=== PATIENT | male | born 1970 | race Two or more races ===

== ENCOUNTER 2016-11-22 15:42 | Inpatient (IN) | payer OTHER ==
[2016-11-22 17:35] VITALS: BMI 23.7
--- NOTE | 2016-11-22 22:13 | HP ---
CIWA Score - CIWA Score Nausea/Vomitin-No Nausea/No Vomiting Muscle Tremors: 4-Moderate,w/Arms Extend Anxiety: 4-Mod. Anxious/Guarded Agitation: 4-Moderately Restless Paroxysmal Sweats: 1-Minimal Palms Moist Orientation: 2-Disoriented Date<2 days Tacttile Disturbances: 1-Very Mild Itch/Numbness Auditory Disturbances: 0-None Visual Disturbances: 0-None Headache: 1-Very Mild CIWA-Ar Total Score: 17 Admission ROS BHS - HPI Chief Complaint: SEEKING DETOX TXMENT Allergies/Adverse Reactions: Allergies Allergy/AdvReac Type Severity Reaction Status Date / Time Fish Containing Products Allergy Severe Swelling Verified 01/04/16 14:09 No Known Drug Allergies Allergy Verified 01/04/16 14:09 History of Present Illness: 46 Y.O MALE ADMITTED FOR DETOX FROM ALCOHOLISM. CLIENT IS KNOWN TO [facility]. REPORTS LAST DETOX 11 MONTHS AGO. STATES HE IS ON MMTP AT [place] 65 MG DAILY LDM TODAY. Exam Limitations: No Limitations - Ebola screening Have you traveled outside of the country in the last 21 days: No Have you had contact with anyone from an Ebola affected area: No Have you been sick,other than usual withdrawal symptoms: No Do you have a fever: No - Review of Systems Constitutional: Chills, Loss of Appetite, Night Sweats, Changes in sleep EENT: reports: Dental Problems (MISSING TEETH), Other (GLASSES) Respiratory: reports: No Symptoms reported Cardiac: reports: No Symptoms Reported GI: reports: No Symptoms Reported : reports: No Symptoms Reported Musculoskeletal: reports: No Symptoms Reported Integumentary: reports: No Symptoms Reported Neuro: reports: No Symptoms reported Endocrine: reports: No Symptoms Reported Hematology: reports: No Symptoms Reported Psychiatric: reports: Anxious, Depressed Other Systems: Reviewed and Negative Patient History - Patient Medical History Hx Anemia: No Hx Asthma: No Hx Chronic Obstructive Pulmonary Disease (COPD): No Hx Cancer: No Hx Cardiac Disorders: No Hx Congestive Heart Failure: No Hx Hypertension: Yes (ON MEDS) Hx Hypercholesterolemia: Yes (ON MEDS) Hx Pacemaker: No HX Cerebrovascular Accident: No Hx Seizures: Yes (ETOH RELATED) Hx Dementia: No Hx Diabetes: No Hx Gastrointestinal Disorders: No Hx Liver Disease: Yes (TX'ED) Hx Genitourinary Disorders: No Hx Sexually Transmitted Disorders: No Hx Renal Disease (ESRD): No Hx Thyroid Disease: No Hx Human Immunodeficiency Virus (HIV): No Hx Hepatitis C: Yes (TX'ED) Hx Depression: No Hx Suicide Attempt: No Hx Bipolar Disorder: No Hx Schizophrenia: No Other Medical History: DENIES - Patient Surgical History Past Surgical History: No Hx Neurologic Surgery: No Hx Cataract Extraction: No Hx Cardiac Surgery: No Hx Lung Surgery: No Hx Breast Surgery: No Hx Breast Biopsy: No Hx Abdominal Surgery: No Hx Appendectomy: No Hx Cholecystectomy: No Hx Genitourinary Surgery: No Hx Section: No Hx Orthopedic Surgery: No Hx Hysterectomy: No Anesthesia Reaction: No - PPD History Previous Implant?: No Documented Results: Positive w/proof Implanted On Prior [facility] Admission?: No Results: NEG CXR 06/24/15 PPD to be Administered?: No - Smoking Cessation Smoking history: Current every day smoker Have you smoked in the past 12 months: Yes Aproximately how many cigarettes per day: 10 Cigars Per Day: 0 Hx Chewing Tobacco Use: No Initiated information on smoking cessation: Yes - Substance & Tx. History Hx Alcohol Use: Yes Hx Substance Use: No Substance Use Type: Opiates (MMTP) Hx Substance Use Treatment: Yes ([facility]) - Substances Abused Alcohol Route: Oral Frequency: Daily Amount used: 5 pints vodka Age of first use: 17 Date of Last Use: 11/22/16 Family Disease History - Family Disease History Family Disease History: Other: Father (ALCOHOLISM), Mother (HTN/ ALCOHOLISM) Admission Physical Exam BHS - Vital Signs Vital Signs: Vital Signs - 24 hr 11/22/16 17:33 Temperature 97.9 F Pulse Rate 96 H Respiratory 18 Rate Blood Pressure 111/72 - Physical General Appearance: Yes: Appropriately Dressed, Mild Distress, Alcohol on Breath , Intoxicated, Tremorous, Anxious HEENTM: Yes: EOMI, Normocephalic, Normal Voice, HUMBERTO, Pharynx Normal, Other ( POOR DENTITION) Respiratory: Yes: Chest Non-Tender, Lungs Clear, Normal Breath Sounds, No Respiratory Distress, No Accessory Muscle Use Neck: Yes: No masses,lesions,Nodules, Supple, Trachea in good position Breast: Yes: Breast Exam Deferred Cardiology: Yes: Regular Rhythm, Regular Rate, S1, S2 Abdominal: Yes: Normal Bowel Sounds, Non Tender, Soft Genitourinary: Yes: Within Normal Limits Back: Yes: Normal Inspection Musculoskeletal: Yes: full range of Motion, Gait Steady Extremities: Yes: Normal Range of Motion, Non-Tender, Tremors, Other (R THUMMP SOFT MASS/ABCESS. REPORTS S/P ABT TXMENT) Neurological: Yes: tip cementer II-XII NML intact, Fully Oriented, Alert, Motor Strength 5/5 Integumentary: Yes: Warm Lymphatic: Yes: Within Normal Limits - Diagnostic (1) Alcohol dependence with uncomplicated withdrawal Current Visit: Yes Status: Chronic (2) HTN (hypertension) Current Visit: Yes Status: Chronic Qualifiers: Hypertension type: essential hypertension Qualified Code(s): I10 - Essential (primary) hypertension (3) Hyperlipidemia Current Visit: Yes Status: Chronic Qualifiers: Hyperlipidemia type: unspecified Qualified Code(s): E78.5 - Hyperlipidemia, unspecified (4) Methadone maintenance therapy patient Current Visit: Yes Status: Chronic Comment: LAST DOSE (45 MG): 01/04/16. VERIFY TOMORROW, AM. (5) Nicotine dependence Current Visit: Yes Status: Chronic Qualifiers: Nicotine product type: cigarettes Substance use status: uncomplicated Qualified Code(s): F17.210 - Nicotine dependence, cigarettes, uncomplicated Cleared for Admission [facility] - Detox or Rehab [facility] Level of Care: Medically Managed Detox Regimen/Protocol: Librium [facility] Breath Alcohol Content Breath Alcohol Content: 170 Urine Drug Screen - Results Drug Screen Negative: No Urine Drug Screen Results: MTD-Methadone
[2016-11-22] MEDS ORDERED: MENTHOL/PHENOL 1 EACH UD MM PRN (22:23)
[2016-11-22] MEDS ORDERED: ACETAMINOPHEN 325 MG TABLET (FP) PO PRN (22:23)
[2016-11-22] MEDS ORDERED: chlordiazePOXIDE HCL 25 MG CAPSULE PO PRN (22:23)
[2016-11-22] MEDS ORDERED: LOPERAMIDE HCL 2 MG CAPSULE PO PRN (22:23)
[2016-11-22] MEDS ORDERED: MAG HYDROX/AL HYDROX/SIMETH 30 ML UNIT-DOSE CUP PO PRN (22:23)
[2016-11-22] MEDS ORDERED: MAGNESIUM HYDROX 2400MG/30ML ORAL SUSPENSION 30 ML CUP PO PRN (22:23)
[2016-11-22] MEDS ORDERED: hydrOXYzine PAMOATE 50 MG CAPSULE (FP) PO PRN (22:23)
[2016-11-22] MEDS ORDERED: MAGNESIUM CITRATE 300 ML BOTTLE PO PRN (22:23)
[2016-11-22] MEDS ORDERED: guaiFENesin/D-METHORPHAN HB 10 ML UNIT-DOSE CUPS PO PRN (22:23)
[2016-11-22] MEDS ORDERED: NICOTINE POLACRILEX 2 MG GUM BC PRN (22:23)
[2016-11-22] MEDS ORDERED: IBUPROFEN 400 MG TABLET (FP) PO PRN (22:23)
[2016-11-22] MEDS ORDERED: diphenhydrAMINE HCL 50 MG CAPSULE PO PRN (22:23)
[2016-11-22] MEDS ORDERED: P-EPHED 60MG/TRIPROLIDI 2.5MG TABLET PO PRN (22:23)
[2016-11-22] MEDS: chlordiazePOXIDE HCL 25 MG CAPSULE PO SCH (23:03)
[2016-11-23 01:27] LABS: URINE APPEARANCE CLEAR; URINE BILIRUBIN NEGATIVE (NEGATIVE); URINE BLOOD NEGATIVE (NEGATIVE); URINE COLOR LTYELLOW; URINE GLUCOSE (UA) NEGATIVE (NEGATIVE); URINE KETONE NEGATIVE (NEGATIVE); URINE LEUK ESTERASE NEGATIVE (NEGATIVE); URINE NITRITE NEGATIVE (NEGATIVE); URINE PROTEIN NEGATIVE (NEGATIVE); URINE UROBILINOGEN NEGATIVE mg/dL (0.2-1.0)
[2016-11-23] MEDS: chlordiazePOXIDE HCL 25 MG CAPSULE PO SCH ×4 (05:49→22:19)
--- NOTE | 2016-11-23 08:44 | CONSULT ---
[facility] Psychiatric Consult - Data Date of interview: 11/23/16 Admission source: [facility] Identifying data: This is 46 years old male with psychiatrioc hospitalization history, history of anxiety and Panic disorder, imtoxicated with: Alcohol, Opioids and Nicotine, Cocaine Substance Abuse History: Smoking Cessation. Smoking history: Current every day smoker. Have you smoked in the past 12 months: Yes. Aproximately how many cigarettes per day: 10. Cigars Per Day: 0. Hx Chewing Tobacco Use: No. Initiated information on smoking cessation: Yes. - Substance & Tx. History. Hx Alcohol Use: Yes. Hx Substance Use: No. Substance Use Type: Opiates (MMTP) . Hx Substance Use Treatment: Yes ([facility]). - Substances Abused. Alcohol. Route: Oral. Frequency: Daily. Amount used: 5 pints vodka. Age of first use: 17. Date of Last Use: 11/22/16 Medical History: HTN, Hyperlipidemia, Cellulitis history, Hep C+, MMTP 65mg per day Psychiatric History: Ptient reports history of Bipolar Dosrder, Panic Attacks disorder, reports insomnia, reports taking prior to admission: Ambien 10mg po qhs. Seroquel 100mg po qhs. Patient repots unclear psychiatric admission due to anxiety on about more then 5 years ago Physical/Sexual Abuse/Trauma History: Denies Additional Comment: Ambien 10mg po qhs. Seroquel 100mg po qhs Mental Status Exam - Mental Status Exam Alert and Oriented to: Person Cognitive Function: Fair Patient Appearance: Unkempt Mood: Anxious Affect: Mood Congruent Patient Behavior: Cooperative Speech Pattern: Appropriate Voice Loudness: Normal Thought Process: Goal Oriented Thought Disorder: Being Controlled Hallucinations: Denies Suicidal Ideation: Denies Homicidal Ideation: Denies Insight/Judgement: Fair Sleep: Difficulty falling asleep Appetite: Fair Muscle strength/Tone: Normal Gait/Station: Shuffling Additional Comments: Ambien 10mg po qhs. Seroquel 100mg po qhs Psychiatric Findings - Problem List ([place] 1, 2,3) (1) Alcohol dependence with uncomplicated withdrawal Current Visit: Yes Status: Chronic (2) Methadone maintenance therapy patient Current Visit: Yes Status: Chronic Comment: LAST DOSE (45 MG): 01/04/16. VERIFY TOMORROW, AM. (3) Nicotine dependence Current Visit: Yes Status: Chronic Qualifiers: Nicotine product type: cigarettes Substance use status: uncomplicated Qualified Code(s): F17.210 - Nicotine dependence, cigarettes, uncomplicated (4) Opiate dependence Current Visit: No Status: Acute Qualifiers: Substance use status: uncomplicated Qualified Code(s): F11.20 - Opioid dependence, uncomplicated Comment: PT STILL USING HEROIN IV AND ON MMTP (5) Opioid dependence on agonist therapy Current Visit: No Status: Acute (6) Cocaine dependence, uncomplicated Current Visit: No Status: Chronic (7) Panic disorder with agoraphobia Current Visit: No Status: Chronic (8) Bipolar II disorder Current Visit: No Status: Suspected (9) Substance induced mood disorder Current Visit: No Status: Suspected - Initial Treatment Plan Initial Treatment Plan: Ambien 10mg po qhs. Seroquel 100mg po qhs
[2016-11-23] MEDS ORDERED: METHADONE HCL 10 MG TABLET PO SCH (09:00)
[2016-11-23 09:52] LABS: ALBUMIN 3.2 g/dl (3.4-5.0); ANION GAP 3 (8-16); CALCIUM 8.9 mg/dL (8.5-10.1); CO2 36 mmol/L (21-32); CREATININE 0.8 mg/dL (0.7-1.3); GLUCOSE,RANDOM 95 mg/dL (74-106); SGOT/AST 21 U/L (15-37); SGPT/ALT 26 U/L (12-78)
[2016-11-23 09:53] LABS: ALK PHOS 89 U/L (45-117); BILIRUBIN,TOTAL 0.2 mg/dL (0.2-1.0); MCH 32.3 pg (25.7-33.7); MCHC 34.7 g/dl (32.0-35.9); MEAN CELL VOLUME 93.1 fl (80-96); MEAN PLT VOLUME 8.6 fl (7.5-11.1); PLATELET COUNT 163 K/MM3 (134-434); RDW 14.2 % (11.9-15.9); WHITE BLOOD COUNT 4.4 K/mm3 (4.0-10.0)
[2016-11-23] MEDS ORDERED: METHADONE HCL 10 MG TABLET ONE (10:05)
[2016-11-23] MEDS ORDERED: METHADONE HCL 5 MG TABLET ONE (10:05)
[2016-11-23] MEDS ORDERED: METHADONE HCL 40 MG DISPERSABLE TABLET ONE (10:06)
[2016-11-23] MEDS: METHADONE 40 MG, METHADONE 20 MG, METHADONE 5 MG PO SCH (10:06)
[2016-11-23] MEDS: PRENATAL VITAMINS W/ FOLIC ACID TABLET (FP) PO SCH (10:08)
[2016-11-23] MEDS: NICOTINE 21 MG/24 HOURS TOPICAL PATCH TD SCH (10:09)
--- NOTE | 2016-11-23 11:46 | PN ---
[facility] CIWA - CIWA Score Nausea/Vomitin Muscle Tremors: 2 Anxiety: 4-Mod. Anxious/Guarded Agitation: 2 Paroxysmal Sweats: 3 Orientation: 0-Oriented Tacttile Disturbances: 2-Mild Itch/Numbness/Burn Auditory Disturbances: 0-None Visual Disturbances: 3-Moderate Sensitivity Headache: 0-None Present CIWA-Ar Total Score: 18 S Progress Note (SOAP) Subjective: Body Aches, Anxious, Diarrhea, Stomach Cramping, Interrupted sleep, Sweating. Objective: PT. A & O X 3, OBSERVED AMBULATING ON UNIT. NO ACUTE DISTRESS. PT. DENIES CHEST PAIN. 11/23/16 11:47 Vital Signs Temperature 97.0 F L 11/23/16 10:18 Pulse Rate 81 11/23/16 10:18 Respiratory Rate 18 11/23/16 10:18 Blood Pressure 135/93 11/23/16 10:18 O2 Sat by Pulse Oximetry (%) Laboratory Tests 11/22/16 11/23/16 11/23/16 23:39 07:50 07:50 WBC 4.4 RBC 3.70 L D Hgb 12.0 D Hct 34.4 L D MCV 93.1 MCH 32.3 MCHC 34.7 RDW 14.2 Plt Count 163 MPV 8.6 Sodium 143 Potassium 3.7 Chloride 104 Carbon Dioxide 36 H Anion Gap 3 L BUN 16 D Creatinine 0.8 Creat Clearance w eGFR > 60 Random Glucose 95 Calcium 8.9 Total Bilirubin 0.2 D AST 21 ALT 26 Alkaline Phosphatase 89 Total Protein 7.0 Albumin 3.2 L Urine Color Ltyellow Urine Appearance Clear Urine pH 5.0 Ur Specific [place] 1.010 Urine Protein Negative Urine Glucose (UA) Negative Urine Ketones Negative Urine Blood Negative Urine Nitrite Negative Urine Bilirubin Negative Urine Urobilinogen Negative LABS NOTED. RESULTS OF RPR, HCV AB, AND HIV AB PENDING. 11/23/16 11:50 Assessment: 11/23/16 11:47 WITHDRAWAL SYMPTOMS. Plan: CONTINUE DETOX. FEOSOL, 325 MG PO BIDWM. REPEAT CBC ON 11/25/2016. INCREASE DAILY PO FLUID INTAKE.
[2016-11-23] MEDS ORDERED: FLU VACCINE QUAD 60 MCG/0.5 ML (MDV 17-18) IM ONE (12:00)
[2016-11-23 12:59] LABS: HIV 1 & 2 AB NEGATIVE; HIV 1 AGp24 NEGATIVE
--- NOTE | 2016-11-23 13:22 | EKG ---
Test Reason : Blood Pressure : / mmHG Vent. Rate : 081 BPM Atrial Rate : 081 BPM P-R Int : 150 ms QRS Dur : 092 ms QT Int : 428 ms P-R-T Axes : 039 -13 -10 degrees QTc Int : 497 ms NORMAL SINUS RHYTHM VOLTAGE CRITERIA FOR LEFT VENTRICULAR HYPERTROPHY PROLONGED QT ABNORMAL ECG NO PREVIOUS ECGS AVAILABLE Confirmed by GEORGE LOYD, ULISES ([id number]) on 11/23/2016 1:21:57 PM Referred By: Raoul Devlin Confirmed By:ULISES VAZQUEZ MD
[2016-11-23] MEDS: FERROUS SO4 325 MG TABLET (FP) PO SCH (17:20)
[2016-11-23] MEDS: THIAMINE HCL 100 MG TABLET (FP) PO SCH (22:19)
[2016-11-23] MEDS: QUEtiapine FUMARATE 100 MG TABLET (FP) PO SCH (22:19)
[2016-11-23] MEDS: ZOLPIDEM TARTRATE 10 MG TABLET (PARK CARE ONLY) PO PRN (22:20)
[2016-11-24] MEDS ORDERED: METHADONE HCL 40 MG DISPERSABLE TABLET ONE (04:12)
[2016-11-24] MEDS ORDERED: METHADONE HCL 10 MG TABLET ONE (04:12)
[2016-11-24] MEDS ORDERED: METHADONE HCL 5 MG TABLET ONE (04:12)
[2016-11-24] MEDS: METHADONE 40 MG, METHADONE 20 MG, METHADONE 5 MG PO SCH (05:50)
[2016-11-24] MEDS: chlordiazePOXIDE HCL 25 MG CAPSULE PO SCH ×3 (05:50→17:14)
[2016-11-24] MEDS: FERROUS SO4 325 MG TABLET (FP) PO SCH ×2 (07:34→17:13)
[2016-11-24] MEDS: PRENATAL VITAMINS W/ FOLIC ACID TABLET (FP) PO SCH (10:13)
[2016-11-24] MEDS: NICOTINE 21 MG/24 HOURS TOPICAL PATCH TD SCH (10:14)
--- NOTE | 2016-11-24 12:37 | PN ---
[facility] CIWA - CIWA Score Nausea/Vomitin-Mild Nausea/No Vomiting Muscle Tremors: 3 Anxiety: 4-Mod. Anxious/Guarded Agitation: 2 Paroxysmal Sweats: 3 Orientation: 0-Oriented Tacttile Disturbances: 1-Very Mild Itch/Numbness Auditory Disturbances: 2-Mild Harshness/Frighten Visual Disturbances: 0-None Headache: 0-None Present CIWA-Ar Total Score: 16 S Progress Note (SOAP) Subjective: Tremors, Interrupted sleep, Body Aches, Sweating. Objective: PT. A & O X 3, OBSERVED AMBULATING ON UNIT. NO ACUTE DISTRESS. PT. DENIES CHEST PAIN. 11/24/16 12:35 Vital Signs Temperature 98.3 F 11/24/16 11:18 Pulse Rate 70 11/24/16 11:18 Respiratory Rate 18 11/24/16 11:18 Blood Pressure 123/88 11/24/16 11:18 O2 Sat by Pulse Oximetry (%) Laboratory Tests 11/22/16 11/23/16 11/23/16 23:39 07:50 07:50 WBC RBC Hgb Hct MCV MCH MCHC RDW Plt Count MPV Sodium Potassium Chloride Carbon Dioxide Anion Gap BUN Creatinine Creat Clearance w eGFR Random Glucose Calcium Total Bilirubin AST ALT Alkaline Phosphatase Total Protein Albumin Urine Color Ltyellow Urine Appearance Clear Urine pH 5.0 Ur Specific [place] 1.010 Urine Protein Negative Urine Glucose (UA) Negative Urine Ketones Negative Urine Blood Negative Urine Nitrite Negative Urine Bilirubin Negative Urine Urobilinogen Negative RPR Titer T.pallidum Ab (MHA) Hepatitis C Antibody >11.0 H HIV 1&2 Antibody Screen Negative HIV P24 Antigen Negative 11/23/16 11/23/16 11/23/16 07:50 07:50 07:50 WBC 4.4 RBC 3.70 L D Hgb 12.0 D Hct 34.4 L D MCV 93.1 MCH 32.3 MCHC 34.7 RDW 14.2 Plt Count 163 MPV 8.6 Sodium 143 Potassium 3.7 Chloride 104 Carbon Dioxide 36 H Anion Gap 3 L BUN 16 D Creatinine 0.8 Creat Clearance w eGFR > 60 Random Glucose 95 Calcium 8.9 Total Bilirubin 0.2 D AST 21 ALT 26 Alkaline Phosphatase 89 Total Protein 7.0 Albumin 3.2 L Urine Color Urine Appearance Urine pH Ur Specific [place] Urine Protein Urine Glucose (UA) Urine Ketones Urine Blood Urine Nitrite Urine Bilirubin Urine Urobilinogen RPR Titer Reactive 1:1 H T.pallidum Ab (MHA) Previously reactive Hepatitis C Antibody HIV 1&2 Antibody Screen HIV P24 Antigen LABS NOTED. RESULT OF POSITIVE HCV AB (11/23/2016) AND REACTIVE RPR (11/23/2016) NOTED. HCV QUANTITATION RESULT PENDING. 11/24/16 12:39 11/24/16 12:40 11/24/16 16:57 Assessment: 11/24/16 12:36 WITHDRAWAL SYMPTOMS. POSITIVE HCV ANTIBODY TEST RESULT. REACTIVE RPR. 11/24/16 12:40 Plan: CONTINUE DETOX. PATIENT MADE AWARE OF POSITIVE HCV ANTIBODY RESULT (HCV QUANTITATION RESULT PENDING). PATIENT REPORTS HISTORY OF POSITIVE HCV ANTIBODY RESULT, BUT THAT HE HAS HAD AN 'UNDETECTABLE' HCV VIRAL LOAD, WELL. PATIENT REPORTS THAT HE IS CURRENTLY UNDER THE MEDICAL CARE OF MEDICAL PROVIDER DR. ODELL OF [facility] IN THE [facility]. AND THAT DR. ODELL IS AWARE OF THIS HISTORY. PT. ADVISED TO FOLLOW-UP WITH DR. ODELL OF [facility] AFTER DISCHARGE FROM DETOX FOR FOLLOW-UP EVALUATION OF POSITIVE HCV ANTIBODY RESULT. PT. ALSO MADE AWARE OF REACTIVE RPR RESULT (A-TP: PREVIOUSLY REACTIVE: 08-20-2015). PATIENT REPORTS THAT HE COMPLETED A FULL COURSE OF ANTIBIOTIC TREATMENT FOR SYPHILIS IN 1989. COPIES OF BOTH LAB VALUES GIVEN TO PATIENT.
[2016-11-24] MEDS: QUEtiapine FUMARATE 100 MG TABLET (FP) PO SCH (22:09)
[2016-11-24] MEDS: chlordiazePOXIDE 5 MG CAPSULE PO SCH (22:09)
[2016-11-24] MEDS: THIAMINE HCL 100 MG TABLET (FP) PO SCH (22:09)
[2016-11-24] MEDS: ZOLPIDEM TARTRATE 10 MG TABLET (PARK CARE ONLY) PO PRN (22:11)
[2016-11-25] MEDS ORDERED: METHADONE HCL 10 MG TABLET ONE (03:29)
[2016-11-25] MEDS ORDERED: METHADONE HCL 5 MG TABLET ONE (03:30)
[2016-11-25] MEDS ORDERED: METHADONE HCL 40 MG DISPERSABLE TABLET ONE (03:31)
[2016-11-25] MEDS: METHADONE 40 MG, METHADONE 20 MG, METHADONE 5 MG PO SCH (05:32)
[2016-11-25] MEDS: chlordiazePOXIDE 5 MG CAPSULE PO SCH ×3 (05:32→17:26)
[2016-11-25] MEDS: FERROUS SO4 325 MG TABLET (FP) PO SCH ×2 (10:15→17:26)
[2016-11-25] MEDS: PRENATAL VITAMINS W/ FOLIC ACID TABLET (FP) PO SCH (10:15)
[2016-11-25] MEDS: NICOTINE 21 MG/24 HOURS TOPICAL PATCH TD SCH (10:17)
[2016-11-25 10:46] LABS: BASOPHIL 0.2 % (0-2.0); EOSINOPHIL 1.3 % (0-4.5); MCH 31.7 pg (25.7-33.7); MCHC 33.6 g/dl (32.0-35.9); MEAN CELL VOLUME 94.3 fl (80-96); MEAN PLT VOLUME 8.5 fl (7.5-11.1); NEUTROPHILS 45.5 % (42.8-82.8); PLATELET COUNT 149 K/MM3 (134-434); RDW 14.3 % (11.9-15.9); WHITE BLOOD COUNT 5.6 K/mm3 (4.0-10.0)
--- NOTE | 2016-11-25 15:48 | PN ---
S Progress Note (SOAP) Subjective: Sweating, Fatigue, Diarrhea. Objective: PT. A & O X 3, OBSERVED AMBULATING ON UNIT. NO ACUTE DISTRESS. PT. DENIES CHEST PAIN. 11/25/16 15:45 Vital Signs Temperature 98.2 F 11/25/16 15:17 Pulse Rate 79 11/25/16 15:17 Respiratory Rate 18 11/25/16 15:17 Blood Pressure 146/97 11/25/16 15:17 O2 Sat by Pulse Oximetry (%) Laboratory Tests 11/22/16 11/23/16 11/23/16 23:39 07:50 07:50 WBC RBC Hgb Hct MCV MCH MCHC RDW Plt Count MPV Neutrophils % Lymphocytes % Monocytes % Eosinophils % Basophils % Sodium Potassium Chloride Carbon Dioxide Anion Gap BUN Creatinine Creat Clearance w eGFR Random Glucose Calcium Total Bilirubin AST ALT Alkaline Phosphatase Total Protein Albumin Urine Color Ltyellow Urine Appearance Clear Urine pH 5.0 Ur Specific [place] 1.010 Urine Protein Negative Urine Glucose (UA) Negative Urine Ketones Negative Urine Blood Negative Urine Nitrite Negative Urine Bilirubin Negative Urine Urobilinogen Negative RPR Titer T.pallidum Ab (MHA) Hepatitis C Antibody >11.0 H HIV 1&2 Antibody Screen Negative HIV P24 Antigen Negative 11/23/16 11/23/16 11/23/16 07:50 07:50 07:50 WBC 4.4 RBC 3.70 L D Hgb 12.0 D Hct 34.4 L D MCV 93.1 MCH 32.3 MCHC 34.7 RDW 14.2 Plt Count 163 MPV 8.6 Neutrophils % Lymphocytes % Monocytes % Eosinophils % Basophils % Sodium 143 Potassium 3.7 Chloride 104 Carbon Dioxide 36 H Anion Gap 3 L BUN 16 D Creatinine 0.8 Creat Clearance w eGFR > 60 Random Glucose 95 Calcium 8.9 Total Bilirubin 0.2 D AST 21 ALT 26 Alkaline Phosphatase 89 Total Protein 7.0 Albumin 3.2 L Urine Color Urine Appearance Urine pH Ur Specific [place] Urine Protein Urine Glucose (UA) Urine Ketones Urine Blood Urine Nitrite Urine Bilirubin Urine Urobilinogen RPR Titer Reactive 1:1 H T.pallidum Ab (MHA) Previously reactive Hepatitis C Antibody HIV 1&2 Antibody Screen HIV P24 Antigen 11/25/16 08:00 WBC 5.6 RBC 3.86 L Hgb 12.2 Hct 36.4 MCV 94.3 MCH 31.7 MCHC 33.6 RDW 14.3 Plt Count 149 MPV 8.5 Neutrophils % 45.5 D Lymphocytes % 45.4 H Monocytes % 7.6 Eosinophils % 1.3 Basophils % 0.2 Sodium Potassium Chloride Carbon Dioxide Anion Gap BUN Creatinine Creat Clearance w eGFR Random Glucose Calcium Total Bilirubin AST ALT Alkaline Phosphatase Total Protein Albumin Urine Color Urine Appearance Urine pH Ur Specific [place] Urine Protein Urine Glucose (UA) Urine Ketones Urine Blood Urine Nitrite Urine Bilirubin Urine Urobilinogen RPR Titer T.pallidum Ab (MHA) Hepatitis C Antibody HIV 1&2 Antibody Screen HIV P24 Antigen LABS NOTED. RESULTS OF REPEAT CBC NOTED. 11/25/16 15:48 Assessment: 11/25/16 15:46 WITHDRAWAL SYMPTOMS. Plan: CONTINUE DETOX.
[2016-11-25] MEDS: THIAMINE HCL 100 MG TABLET (FP) PO SCH (22:20)
[2016-11-25] MEDS: QUEtiapine FUMARATE 100 MG TABLET (FP) PO SCH (22:22)
[2016-11-25] MEDS: ZOLPIDEM TARTRATE 10 MG TABLET (PARK CARE ONLY) PO PRN (22:22)
[2016-11-25] MEDS: chlordiazePOXIDE HCL 10 MG CAPSULE PO SCH (22:22)
[2016-11-26] MEDS ORDERED: METHADONE HCL 5 MG TABLET ONE (02:35)
[2016-11-26] MEDS ORDERED: METHADONE HCL 10 MG TABLET ONE (02:35)
[2016-11-26] MEDS ORDERED: METHADONE HCL 40 MG DISPERSABLE TABLET ONE (02:36)
[2016-11-26] MEDS: chlordiazePOXIDE HCL 10 MG CAPSULE PO SCH (05:26)
[2016-11-26] MEDS: METHADONE 40 MG, METHADONE 20 MG, METHADONE 5 MG PO SCH (05:26)
[2016-11-26] MEDS ORDERED: cloNIDine HCL 0.1 MG TABLET PO ONE (06:16)
[2016-11-26 07:16] VITALS: BP 155/102; PULSE 98; TEMP 98.4
--- NOTE | 2016-11-26 15:24 | DS ---
[facility] Detox Discharge Summary Admission Date: 11/22/16 Discharge Date: 11/26/16 - History Present History: Alcohol Dependence, Opioid Dependence, MMTP Pertinent Past History: HLD HTN Alcohol related seizure disorder Hepatitis C (treated) PPD Positive Anemia - Physical Exam Results Vital Signs: Vital Signs Temperature 98.4 F 11/26/16 06:00 Pulse Rate 98 H 11/26/16 06:00 Respiratory Rate 18 11/26/16 06:00 Blood Pressure 155/102 11/26/16 06:00 O2 Sat by Pulse Oximetry (%) Pertinent Admission Physical Exam Findings: Withdrawal symptoms Laboratory Tests 11/22/16 11/23/16 11/23/16 23:39 07:50 07:50 WBC RBC Hgb Hct MCV MCH MCHC RDW Plt Count MPV Neutrophils % Lymphocytes % Monocytes % Eosinophils % Basophils % Sodium Potassium Chloride Carbon Dioxide Anion Gap BUN Creatinine Creat Clearance w eGFR Random Glucose Calcium Total Bilirubin AST ALT Alkaline Phosphatase Total Protein Albumin Urine Color Ltyellow Urine Appearance Clear Urine pH 5.0 Ur Specific [place] 1.010 Urine Protein Negative Urine Glucose (UA) Negative Urine Ketones Negative Urine Blood Negative Urine Nitrite Negative Urine Bilirubin Negative Urine Urobilinogen Negative RPR Titer T.pallidum Ab (MHA) Hepatitis C Antibody >11.0 H HIV 1&2 Antibody Screen Negative HIV P24 Antigen Negative 11/23/16 11/23/16 11/23/16 07:50 07:50 07:50 WBC 4.4 RBC 3.70 L D Hgb 12.0 D Hct 34.4 L D MCV 93.1 MCH 32.3 MCHC 34.7 RDW 14.2 Plt Count 163 MPV 8.6 Neutrophils % Lymphocytes % Monocytes % Eosinophils % Basophils % Sodium 143 Potassium 3.7 Chloride 104 Carbon Dioxide 36 H Anion Gap 3 L BUN 16 D Creatinine 0.8 Creat Clearance w eGFR > 60 Random Glucose 95 Calcium 8.9 Total Bilirubin 0.2 D AST 21 ALT 26 Alkaline Phosphatase 89 Total Protein 7.0 Albumin 3.2 L Urine Color Urine Appearance Urine pH Ur Specific [place] Urine Protein Urine Glucose (UA) Urine Ketones Urine Blood Urine Nitrite Urine Bilirubin Urine Urobilinogen RPR Titer Reactive 1:1 H T.pallidum Ab (MHA) Previously reactive Hepatitis C Antibody HIV 1&2 Antibody Screen HIV P24 Antigen 11/25/16 08:00 WBC 5.6 RBC 3.86 L Hgb 12.2 Hct 36.4 MCV 94.3 MCH 31.7 MCHC 33.6 RDW 14.3 Plt Count 149 MPV 8.5 Neutrophils % 45.5 D Lymphocytes % 45.4 H Monocytes % 7.6 Eosinophils % 1.3 Basophils % 0.2 Sodium Potassium Chloride Carbon Dioxide Anion Gap BUN Creatinine Creat Clearance w eGFR Random Glucose Calcium Total Bilirubin AST ALT Alkaline Phosphatase Total Protein Albumin Urine Color Urine Appearance Urine pH Ur Specific [place] Urine Protein Urine Glucose (UA) Urine Ketones Urine Blood Urine Nitrite Urine Bilirubin Urine Urobilinogen RPR Titer T.pallidum Ab (MHA) Hepatitis C Antibody HIV 1&2 Antibody Screen HIV P24 Antigen Labs noted - Treatment Hospital Course: Detox Protocol Followed, Detoxed Safely, Responded well, Discharged Condition Good - Medication Discharge Medications: Ambulatory Orders Quetiapine Fumarate [Seroquel -] 100 mg PO HS 11/22/16 Zolpidem Tartrate [Ambien] 10 mg PO HS 11/22/16 Quetiapine Fumarate [Seroquel] 100 mg PO HS #30 tablet 11/23/16 - Diagnosis (1) Opioid dependence on agonist therapy Status: Chronic (2) Alcohol dependence with uncomplicated withdrawal Status: Acute (3) HTN (hypertension) Status: Chronic Qualifiers: Hypertension type: essential hypertension Qualified Code(s): I10 - Essential (primary) hypertension (4) Hep C w/o coma, chronic Status: Chronic Qualifiers: Hepatic coma status: without hepatic coma Qualified Code(s): B18.2 - Chronic viral hepatitis C (5) Hyperlipidemia Status: Chronic Qualifiers: Hyperlipidemia type: unspecified Qualified Code(s): E78.5 - Hyperlipidemia, unspecified (6) Methadone maintenance therapy patient Status: Chronic (7) Nicotine dependence Status: Chronic Qualifiers: Nicotine product type: cigarettes Substance use status: uncomplicated Qualified Code(s): F17.210 - Nicotine dependence, cigarettes, uncomplicated (8) Alcohol related seizure Status: Acute (9) PPD positive Status: Acute (10) Anemia Status: Chronic - AMA Did Patient Leave Against Medical Advice: No
== END 2016-11-26 06:40 | disposition home or self-care (01) | DRG 773 ==
LOC: YASAS 15:42 → Y3N 21:20
PROVIDERS: ADMIT Internal Medicine; ATTEND Internal Medicine
PROC: HZ2ZZZZ Detoxification Services for Substance Abuse Treatment (ICD-10-PCS; principal; 2016-11-22)
DX: F11.20 Opioid dependence, uncomplicated (principal); F10.230 Alcohol dependence with withdrawal, uncomplicated; F17.210 Nicotine dependence, cigarettes, uncomplicated; F19.24 Other psychoactive substance dependence with psychoactive substance-induced mood disorder; G40.509 Epileptic seizures related to external causes, not intractable, without status epilepticus; F34.1 Dysthymic disorder; B18.2 Chronic viral hepatitis C; E78.00 Pure hypercholesterolemia, unspecified; D64.9 Anemia, unspecified; R76.11 Nonspecific reaction to tuberculin skin test without active tuberculosis; F40.01 Agoraphobia with panic disorder; I10 Essential (primary) hypertension
CPT/HCPCS: 36415; 71020-TC; 80053; 81003; 85025; 85027; 86593; 86780; 86803; 87389; 87522; 93005; 93010

== ENCOUNTER 2017-06-27 13:46 | Inpatient (IN) | payer OTHER ==
[2017-06-27 14:42] VITALS: BMI 25.1
--- NOTE | 2017-06-27 15:49 | HP ---
CIWA Score - CIWA Score Nausea/Vomitin Muscle Tremors: 3 Anxiety: 3 Agitation: 3 Paroxysmal Sweats: 2 Orientation: 0-Oriented Tacttile Disturbances: 2-Mild Itch/Numbness/Burn Auditory Disturbances: 2-Mild Harshness/Frighten Visual Disturbances: 0-None Headache: 2-Mild CIWA-Ar Total Score: 20 Admission ROS BHS - HPI Chief Complaint: i am here for detox from alcohol Allergies/Adverse Reactions: Allergies Allergy/AdvReac Type Severity Reaction Status Date / Time Fish Containing Products Allergy Severe Swelling Verified 06/27/17 15:30 No Known Drug Allergies Allergy Verified 06/27/17 15:30 History of Present Illness: this 47 years olm male with alcohol dependence,heroin abused,mmtp 65 mgs/day, withdrawal symptom,last detox [facility] 11/22/16 to 11/26/16 seizure last 2016 syncope nicotine dependence anxiety,depression,insomnia,panic disorder longest period of sobriety 8 years - Ebola screening Have you traveled outside of the country in the last 21 days: No Have you had contact with anyone from an Ebola affected area: No Have you been sick,other than usual withdrawal symptoms: No Do you have a fever: No - Review of Systems Constitutional: Loss of Appetite, Malaise, Night Sweats, Changes in sleep, Weakness, Unintentional Wgt. Loss EENT: reports: Tearing, Nose Congestion Respiratory: reports: No Symptoms reported Cardiac: reports: Palpitations GI: reports: Diarrhea, Nausea, Vomiting, Abdominal cramping : reports: No Symptoms Reported Musculoskeletal: reports: Back Pain, Muscle Pain Integumentary: reports: Dryness Neuro: reports: Headache, Tremors Endocrine: reports: No Symptoms Reported Hematology: reports: No Symptoms Reported Psychiatric: reports: Judgement Intact, Mood/Affect Appropiate, Orientated x3 Other Systems: Reviewed and Negative Patient History - Patient Medical History Hx Anemia: No Hx Asthma: No Hx Chronic Obstructive Pulmonary Disease (COPD): No Hx Cancer: No Hx Cardiac Disorders: No Hx Congestive Heart Failure: No Hx Hypertension: Yes (on meds.) Hx Hypercholesterolemia: Yes (ON MEDS) Hx Pacemaker: No HX Cerebrovascular Accident: No Hx Seizures: Yes (etoh related last 1 yr ago.) Hx Dementia: No Hx Diabetes: No Hx Gastrointestinal Disorders: No Hx Liver Disease: Yes (TX'ED) Hx Genitourinary Disorders: No Hx Sexually Transmitted Disorders: No Hx Renal Disease (ESRD): No Hx Thyroid Disease: No Hx Human Immunodeficiency Virus (HIV): No Hx Hepatitis C: Yes (TX'ED) Hx Depression: Yes Hx Suicide Attempt: No Hx Bipolar Disorder: No Hx Schizophrenia: No Other Medical History: anxiety,insomnia - Patient Surgical History Past Surgical History: No Hx Neurologic Surgery: No Hx Cataract Extraction: No Hx Cardiac Surgery: No Hx Lung Surgery: No Hx Breast Surgery: No Hx Breast Biopsy: No Hx Abdominal Surgery: No Hx Appendectomy: No Hx Cholecystectomy: No Hx Genitourinary Surgery: No Hx Section: No Hx Orthopedic Surgery: No Hx Hysterectomy: No Anesthesia Reaction: No - PPD History Previous Implant?: Yes Documented Results: Positive w/proof Results: NEG CXR 11/23/16 PPD to be Administered?: No - Smoking Cessation Smoking history: Current every day smoker Have you smoked in the past 12 months: Yes Aproximately how many cigarettes per day: 10 Cigars Per Day: 0 Hx Chewing Tobacco Use: No Initiated information on smoking cessation: Yes 'Breaking Loose' booklet given: 06/27/17 - Substance & Tx. History Hx Alcohol Use: Yes Hx Substance Use: Yes Substance Use Type: Alcohol Hx Substance Use Treatment: Yes ([facility] 11/26) - Substances Abused Alcohol Route: Oral Frequency: Daily Amount used: 2-3 PINTS VODKA Age of first use: 17 Date of Last Use: 06/27/17 Heroin Route: Injection Frequency: 1-2 times per week Amount used: 2 bags Age of first use: 23 Date of Last Use: 06/25/17 Family Disease History - Family Disease History Family Disease History: Other: Father (ALCOHOLISM,), Mother (HTN/ ALCOHOLISM) Admission Physical Exam S - Vital Signs Vital Signs: Vital Signs - 24 hr 06/27/17 14:40 Temperature 98.4 F Pulse Rate 105 H Respiratory 20 Rate Blood Pressure 124/84 - Physical General Appearance: Yes: Moderate Distress, Tremorous, Irritable, Sweating, Anxious HEENTM: Yes: Normal ENT Inspection, Normocephalic, HUMBERTO, Pharynx Normal Respiratory: Yes: Lungs Clear, Normal Breath Sounds, No Respiratory Distress Neck: Yes: Within Normal Limits, Supple, Trachea in good position Breast: Yes: Within Normal Limits Cardiology: Yes: Tachycardia Abdominal: Yes: Within Normal Limits, Normal Bowel Sounds, Non Tender, Flat, Soft Genitourinary: Yes: Within Normal Limits Back: Yes: Normal Inspection, Muscle Spasm Musculoskeletal: Yes: Back pain, Muscle Pain Extremities: Yes: Tremors Neurological: Yes: ladle mechanic II-XII NML intact, Alert, Motor Strength 5/5, Normal Mood /Affect Integumentary: Yes: Dry Lymphatic: Yes: Within Normal Limits - Diagnostic (1) Alcohol dependence with uncomplicated withdrawal Current Visit: Yes Status: Acute (2) PPD positive Current Visit: No Status: Acute (3) HTN (hypertension) Current Visit: Yes Status: Chronic Qualifiers: Hypertension type: essential hypertension Qualified Code(s): I10 - Essential (primary) hypertension (4) Hepatitis C Current Visit: Yes Status: Chronic Qualifiers: Viral hepatitis chronicity: chronic Hepatic coma status: without hepatic coma Qualified Code(s): B18.2 - Chronic viral hepatitis C (5) Hyperlipidemia Current Visit: Yes Status: Chronic Qualifiers: Hyperlipidemia type: unspecified Qualified Code(s): E78.5 - Hyperlipidemia , unspecified (6) Methadone maintenance therapy patient Current Visit: Yes Status: Chronic Comment: LAST DOSE (45 MG): 01/04/16. VERIFY TOMORROW, AM. (7) Nicotine dependence Current Visit: Yes Status: Acute Qualifiers: Nicotine product type: cigarettes Substance use status: in withdrawal Qualified Code(s): F17.213 - Nicotine dependence, cigarettes, with withdrawal (8) Insomnia secondary to depression with anxiety Current Visit: Yes Status: Acute Cleared for Admission [facility] - Detox or Rehab [facility] Level of Care: Medically Managed Detox Regimen/Protocol: Librium [facility] Breath Alcohol Content Breath Alcohol Content: 0.184 Urine Drug Screen - Results Drug Screen Negative: No Urine Drug Screen Results: BZO-Benzodiazepines, MTD-Methadone
[2017-06-27] MEDS ORDERED: LOPERAMIDE HCL 2 MG CAPSULE PO PRN (15:58)
[2017-06-27] MEDS ORDERED: ACETAMINOPHEN 325 MG TABLET (FP) PO PRN (15:58)
[2017-06-27] MEDS ORDERED: IBUPROFEN 400 MG TABLET (FP) PO PRN (15:58)
[2017-06-27] MEDS ORDERED: chlordiazePOXIDE HCL 25 MG CAPSULE PO PRN (15:58)
[2017-06-27] MEDS ORDERED: MAGNESIUM CITRATE 300 ML BOTTLE PO PRN (15:58)
[2017-06-27] MEDS ORDERED: MENTHOL/PHENOL 1 EACH UD MM PRN (15:58)
[2017-06-27] MEDS ORDERED: guaiFENesin/D-METHORPHAN HB 10 ML UNIT-DOSE CUPS PO PRN (15:58)
[2017-06-27] MEDS ORDERED: hydrOXYzine PAMOATE 25 MG CAPSULE (FP) PO PRN (15:58)
[2017-06-27] MEDS ORDERED: MAGNESIUM HYDROX 2400MG/30ML ORAL SUSPENSION 30 ML CUP PO PRN (15:58)
[2017-06-27] MEDS ORDERED: P-EPHED 60MG/TRIPROLIDI 2.5MG TABLET PO PRN (15:58)
[2017-06-27] MEDS ORDERED: MAG HYDROX/AL HYDROX/SIMETH 30 ML UNIT-DOSE CUP PO PRN (15:58)
[2017-06-27] MEDS ORDERED: chlordiazePOXIDE HCL 25 MG CAPSULE PO ONE (16:15)
[2017-06-27] MEDS: chlordiazePOXIDE HCL 25 MG CAPSULE PO SCH ×2 (17:34→22:27)
[2017-06-27] MEDS ORDERED: MELATONIN 5 MG TABLETS PO PRN (22:00)
[2017-06-27] MEDS: THIAMINE HCL 100 MG TABLET (FP) PO SCH (22:27)
[2017-06-27 23:07] LABS: URINE APPEARANCE CLEAR; URINE BILIRUBIN NEGATIVE (<2.0 mg/dL); URINE BLOOD NEGATIVE (NEGATIVE); URINE COLOR LTYELLOW; URINE GLUCOSE (UA) NEGATIVE (NEGATIVE); URINE KETONE NEGATIVE (NEGATIVE); URINE LEUK ESTERASE NEGATIVE (NEGATIVE); URINE NITRITE NEGATIVE (NEGATIVE); URINE PROTEIN NEGATIVE (NEGATIVE); URINE UROBILINOGEN NEGATIVE mg/dL (0.2-1.0)
[2017-06-28] MEDS: chlordiazePOXIDE HCL 25 MG CAPSULE PO SCH ×4 (05:50→22:20)
[2017-06-28] MEDS ORDERED: METHADONE HCL 10 MG TABLET PO ONE (09:02)
--- NOTE | 2017-06-28 09:05 | CONSULT ---
[facility] Psychiatric Consult - Data Date of interview: 06/28/17 Admission source: [facility] Identifying data: Pt. is a 47 year old male, , father of six, unemployed, and currently living with family. This is one of multiple admissions for patient. Pt. admitted to detox for alcohol and opiate dependence. Substance Abuse History: Following information confirmed with Mr. Espinoza: Smoking Cessation. Smoking history: Current every day smoker. Have you smoked in the past 12 months: Yes. Aproximately how many cigarettes per day: 10. Cigars Per Day: 0. Hx Chewing Tobacco Use: No. Initiated information on smoking cessation: Yes. 'Breaking Loose' booklet given: 06/27/17. - Substance & Tx. History. Hx Alcohol Use: Yes. Hx Substance Use: Yes. Substance Use Type : Alcohol. Hx Substance Use Treatment: Yes ([facility] 11/26). - Substances Abused. Alcohol. Route: Oral. Frequency: Daily. Amount used: 2-3 PINTS VODKA. Age of first use: 17. Date of Last Use: 06/27/17. Heroin. Route: Injection. Frequency: 1-2 times per week. Amount used: 2 bags. Age of first use: 23. Date of Last Use: 06/25/17 Medical History: Hypertension, hypercholesterolemia, Seizures (r/t ETOH) Psychiatric History: Patient is receiving outpatient care at [facility] in the [place]. States [facility] was his first psychiatric contact after experiencing anxiety and panic attacks. Pt. reports a diagnosis of anxiety and panic disorder. Pt is prescribed seroquel 100mg and ambien 10mg but reports taking the medication intermittently. Pt. denies h/o psychiatric hospitalizations and suicide attempt. As per Dr. Bernal note on 08/20/15 patient reported two psychiatric [facility] (2006+2014) . Physical/Sexual Abuse/Trauma History: Denies. Mental Status Exam - Mental Status Exam Alert and Oriented to: Time, Place, Person Cognitive Function: Good Patient Appearance: Well Groomed Mood: Euthymic Affect: Mood Congruent Patient Behavior: Cooperative Speech Pattern: Appropriate Voice Loudness: Normal Thought Process: Goal Oriented Thought Disorder: Not Present Hallucinations: Denies Suicidal Ideation: Denies Homicidal Ideation: Denies Insight/Judgement: Poor Sleep: Fair Appetite: Fair Muscle strength/Tone: Normal Gait/Station: Normal Psychiatric Findings - Problem List ([place] 1, 2,3) (1) Alcohol dependence with uncomplicated withdrawal Current Visit: Yes Status: Acute (2) Methadone maintenance therapy patient Current Visit: Yes Status: Chronic Comment: LAST DOSE (45 MG): 01/04/16. VERIFY TOMORROW, AM. (3) Bipolar II disorder Current Visit: No Status: Suspected (4) Substance induced mood disorder Current Visit: Yes Status: Suspected - Initial Treatment Plan Initial Treatment Plan: Psychoeducation provided. Detoxification provided. Seroquel 50mg qhs ordered (as per patient's request.) Benefits and side effects discussed. Verbal consent given. Will continue to monitor.
[2017-06-28] MEDS ORDERED: METHADONE 40 MG, METHADONE 20 MG, METHADONE 5 MG PO ONE (09:10)
[2017-06-28] MEDS ORDERED: METHADONE HCL 10 MG TABLET ONE (09:56)
[2017-06-28] MEDS ORDERED: METHADONE HCL 5 MG TABLET ONE (09:57)
[2017-06-28] MEDS ORDERED: METHADONE HCL 40 MG DISPERSABLE TABLET ONE (09:57)
[2017-06-28] MEDS: PRENATAL VITAMINS W/ FOLIC ACID TABLET (FP) PO SCH (09:59)
[2017-06-28] MEDS: LISINOPRIL 20 MG TABLET (FP) PO SCH (09:59)
[2017-06-28 11:22] LABS: HEMOGLOBIN 11.9 GM/dL (11.7-16.9); MCH 32.5 pg (25.7-33.7); MCHC 34.1 g/dl (32.0-35.9); MEAN CELL VOLUME 95.4 fl (80-96); MEAN PLT VOLUME 8.1 fl (7.5-11.1); PLATELET COUNT 192 K/MM3 (134-434); RBC 3.67 M/mm3 (4.00-5.60); RDW 15.2 % (11.9-15.9)
--- NOTE | 2017-06-28 11:25 | EKG ---
Test Reason : Blood Pressure : / mmHG Vent. Rate : 066 BPM Atrial Rate : 066 BPM P-R Int : 156 ms QRS Dur : 086 ms QT Int : 454 ms P-R-T Axes : 031 -20 -21 degrees QTc Int : 475 ms NORMAL SINUS RHYTHM VOLTAGE CRITERIA FOR LEFT VENTRICULAR HYPERTROPHY ABNORMAL ECG WHEN COMPARED WITH ECG OF 27-JUN-2017 17:23, NO SIGNIFICANT CHANGE WAS FOUND Confirmed by GEORGE LOYD, ULISES ([id number]) on 06/28/2017 11:24:41 AM Referred By: Confirmed By:ULISES VAZQUEZ MD
--- NOTE | 2017-06-28 11:26 | EKG ---
Test Reason : Blood Pressure : / mmHG Vent. Rate : 093 BPM Atrial Rate : 093 BPM P-R Int : 152 ms QRS Dur : 092 ms QT Int : 406 ms P-R-T Axes : 043 -11 -12 degrees QTc Int : 504 ms NORMAL SINUS RHYTHM VOLTAGE CRITERIA FOR LEFT VENTRICULAR HYPERTROPHY PROLONGED QT ABNORMAL ECG WHEN COMPARED WITH ECG OF 22-NOV-2016 23:09, NO SIGNIFICANT CHANGE WAS FOUND Confirmed by ULISES VAZQUEZ MD ([id number]) on 06/28/2017 11:26:07 AM Referred By: Confirmed By:ULISES VAZQUEZ MD
[2017-06-28 11:27] LABS: CHLORIDE 104 mmol/L (98-107); POTASSIUM 3.8 mmol/L (3.5-5.1); SGOT/AST 43 U/L (15-37); SGPT/ALT 75 U/L (12-78); SODIUM 140 mmol/L (136-145)
[2017-06-28 11:33] LABS: ALBUMIN 3.1 g/dl (3.4-5.0); ALK PHOS 102 U/L (45-117); ANION GAP 4 (8-16); BILIRUBIN,TOTAL 0.3 mg/dL (0.2-1.0); BLOOD UREA NITROGEN 16 mg/dL (7-18); CALCIUM 8.6 mg/dL (8.5-10.1); CO2 32 mmol/L (21-32); CREATININE 0.8 mg/dL (0.7-1.3); GLUCOSE,RANDOM 108 mg/dL (74-106); TOT PROT 6.8 g/dl (6.4-8.2)
--- NOTE | 2017-06-28 11:49 | PN ---
[facility] CIWA - CIWA Score Nausea/Vomitin-No Nausea/No Vomiting Muscle Tremors: 4-Moderate,w/Arms Extend Anxiety: 4-Mod. Anxious/Guarded Agitation: 4-Moderately Restless Paroxysmal Sweats: 1-Minimal Palms Moist Orientation: 0-Oriented Tacttile Disturbances: 0-None Auditory Disturbances: 0-None Visual Disturbances: 0-None Headache: 0-None Present CIWA-Ar Total Score: 13 BHS Progress Note (SOAP) Subjective: C/O ANXIETY,SWEATS,MUSCLE ACHES,SWEATS, TREMORS. Objective: 06/28/17 11:50 Vital Signs Temperature 97.0 F L 06/28/17 09:17 Pulse Rate 79 06/28/17 09:17 Respiratory Rate 18 06/28/17 09:17 Blood Pressure 116/81 06/28/17 09:17 O2 Sat by Pulse Oximetry (%) Laboratory Last Values WBC 5.0 K/mm3 (4.0-10.0) 06/28/17 07:30 RBC 3.67 M/mm3 (4.00-5.60) L 06/28/17 07:30 Hgb 11.9 GM/dL (11.7-16.9) 06/28/17 07:30 Hct 35.0 % (35.4-49) L 06/28/17 07:30 MCV 95.4 fl (80-96) 06/28/17 07:30 MCH 32.5 pg (25.7-33.7) 06/28/17 07:30 MCHC 34.1 g/dl (32.0-35.9) 06/28/17 07:30 RDW 15.2 % (11.9-15.9) 06/28/17 07:30 Plt Count 192 K/MM3 (134-434) D 06/28/17 07:30 MPV 8.1 fl (7.5-11.1) 06/28/17 07:30 Sodium 140 mmol/L (136-145) 06/28/17 07:30 Potassium 3.8 mmol/L (3.5-5.1) 06/28/17 07:30 Chloride 104 mmol/L (98-107) 06/28/17 07:30 Carbon Dioxide 32 mmol/L (21-32) 06/28/17 07:30 Anion Gap 4 (8-16) L 06/28/17 07:30 BUN 16 mg/dL (7-18) 06/28/17 07:30 Creatinine 0.8 mg/dL (0.7-1.3) 06/28/17 07:30 Creat Clearance w eGFR > 60 (>60) 06/28/17 07:30 Random Glucose 108 mg/dL (74-106) H 06/28/17 07:30 Calcium 8.6 mg/dL (8.5-10.1) 06/28/17 07:30 Total Bilirubin 0.3 mg/dL (0.2-1.0) D 06/28/17 07:30 AST 43 U/L (15-37) H D 06/28/17 07:30 ALT 75 U/L (12-78) D 06/28/17 07:30 Alkaline Phosphatase 102 U/L (45-117) 06/28/17 07:30 Total Protein 6.8 g/dl (6.4-8.2) 06/28/17 07:30 Albumin 3.1 g/dl (3.4-5.0) L 06/28/17 07:30 Urine Color Ltyellow 06/27/17 22:48 Urine Appearance Clear 06/27/17 22:48 Urine pH 6.0 (5.0-8.0) 06/27/17 22:48 Ur Specific [place] 1.008 (1.001-1.035) 06/27/17 22:48 Urine Protein Negative (NEGATIVE) 06/27/17 22:48 Urine Glucose (UA) Negative (NEGATIVE) 06/27/17 22:48 Urine Ketones Negative (NEGATIVE) 06/27/17 22:48 Urine Blood Negative (NEGATIVE) 06/27/17 22:48 Urine Nitrite Negative (NEGATIVE) 06/27/17 22:48 Urine Bilirubin Negative (<2.0 mg/dL) 06/27/17 22:48 Urine Urobilinogen Negative mg/dL (0.2-1.0) 06/27/17 22:48 Ur Leukocyte Esterase Negative (NEGATIVE) 06/27/17 22:48 Assessment: 06/28/17 11:51 WITHDRAWAL SX Plan: CONTINUE DETOX
[2017-06-28 12:41] LABS: RPR REACTIVE 1:1 (NONREACTIVE)
[2017-06-28 12:52] LABS: TREPONEMA ANTIBODY PREVIOUSLY REACTIVE (NONREACTIVE)
[2017-06-28] MEDS: THIAMINE HCL 100 MG TABLET (FP) PO SCH (22:19)
[2017-06-28] MEDS: QUEtiapine FUMARATE 50 MG TABLET PO SCH (22:19)
[2017-06-29] MEDS ORDERED: METHADONE HCL 40 MG DISPERSABLE TABLET ONE (04:03)
[2017-06-29] MEDS ORDERED: METHADONE HCL 10 MG TABLET ONE (04:03)
[2017-06-29] MEDS ORDERED: METHADONE HCL 5 MG TABLET ONE (04:03)
[2017-06-29] MEDS: chlordiazePOXIDE HCL 25 MG CAPSULE PO SCH ×2 (05:22→10:26)
[2017-06-29] MEDS: METHADONE 40 MG, METHADONE 20 MG, METHADONE 5 MG PO SCH (05:22)
[2017-06-29] MEDS ORDERED: METHADONE HCL 10 MG TABLET PO SCH (06:00)
[2017-06-29] MEDS: LISINOPRIL 20 MG TABLET (FP) PO SCH (10:26)
[2017-06-29] MEDS: PRENATAL VITAMINS W/ FOLIC ACID TABLET (FP) PO SCH (10:26)
--- NOTE | 2017-06-29 12:03 | PN ---
[facility] CIWA - CIWA Score Nausea/Vomitin-No Nausea/No Vomiting Muscle Tremors: 4-Moderate,w/Arms Extend Anxiety: 5 Agitation: 4-Moderately Restless Paroxysmal Sweats: 1-Minimal Palms Moist Orientation: 0-Oriented Tacttile Disturbances: 0-None Auditory Disturbances: 0-None Visual Disturbances: 0-None Headache: 0-None Present CIWA-Ar Total Score: 14 BHS Progress Note (SOAP) Subjective: ANXIETY,CHILLS,BODYACHES,INTERMITTENT SLEEP. Objective: 06/29/17 12:03 Vital Signs Temperature 96.6 F L 06/29/17 09:39 Pulse Rate 84 06/29/17 09:39 Respiratory Rate 18 06/29/17 09:39 Blood Pressure 124/88 06/29/17 09:39 O2 Sat by Pulse Oximetry (%) Laboratory Last Values WBC 5.0 K/mm3 (4.0-10.0) 06/28/17 07:30 RBC 3.67 M/mm3 (4.00-5.60) L 06/28/17 07:30 Hgb 11.9 GM/dL (11.7-16.9) 06/28/17 07:30 Hct 35.0 % (35.4-49) L 06/28/17 07:30 MCV 95.4 fl (80-96) 06/28/17 07:30 MCH 32.5 pg (25.7-33.7) 06/28/17 07:30 MCHC 34.1 g/dl (32.0-35.9) 06/28/17 07:30 RDW 15.2 % (11.9-15.9) 06/28/17 07:30 Plt Count 192 K/MM3 (134-434) D 06/28/17 07:30 MPV 8.1 fl (7.5-11.1) 06/28/17 07:30 Sodium 140 mmol/L (136-145) 06/28/17 07:30 Potassium 3.8 mmol/L (3.5-5.1) 06/28/17 07:30 Chloride 104 mmol/L (98-107) 06/28/17 07:30 Carbon Dioxide 32 mmol/L (21-32) 06/28/17 07:30 Anion Gap 4 (8-16) L 06/28/17 07:30 BUN 16 mg/dL (7-18) 06/28/17 07:30 Creatinine 0.8 mg/dL (0.7-1.3) 06/28/17 07:30 Creat Clearance w eGFR > 60 (>60) 06/28/17 07:30 Random Glucose 108 mg/dL (74-106) H 06/28/17 07:30 Calcium 8.6 mg/dL (8.5-10.1) 06/28/17 07:30 Total Bilirubin 0.3 mg/dL (0.2-1.0) D 06/28/17 07:30 AST 43 U/L (15-37) H D 06/28/17 07:30 ALT 75 U/L (12-78) D 06/28/17 07:30 Alkaline Phosphatase 102 U/L (45-117) 06/28/17 07:30 Total Protein 6.8 g/dl (6.4-8.2) 06/28/17 07:30 Albumin 3.1 g/dl (3.4-5.0) L 06/28/17 07:30 Urine Color Ltyellow 06/27/17 22:48 Urine Appearance Clear 06/27/17 22:48 Urine pH 6.0 (5.0-8.0) 06/27/17 22:48 Ur Specific [place] 1.008 (1.001-1.035) 06/27/17 22:48 Urine Protein Negative (NEGATIVE) 06/27/17 22:48 Urine Glucose (UA) Negative (NEGATIVE) 06/27/17 22:48 Urine Ketones Negative (NEGATIVE) 06/27/17 22:48 Urine Blood Negative (NEGATIVE) 06/27/17 22:48 Urine Nitrite Negative (NEGATIVE) 06/27/17 22:48 Urine Bilirubin Negative (<2.0 mg/dL) 06/27/17 22:48 Urine Urobilinogen Negative mg/dL (0.2-1.0) 06/27/17 22:48 Ur Leukocyte Esterase Negative (NEGATIVE) 06/27/17 22:48 RPR Titer Reactive 1:1 (NONREACTIVE) H 06/28/17 07:30 T.pallidum Ab (MHA) Previously reactive (NONREACTIVE) 06/28/17 07:30 Assessment: 04/20/18 12:03 WITHDRAWAL SX Plan: CONTINUE DETOX
[2017-06-29] MEDS: CYCLOBENZAPRINE HCL 10 MG TABLET (FP) PO PRN (15:05)
[2017-06-29] MEDS: chlordiazePOXIDE 5 MG CAPSULE PO SCH ×2 (17:41→22:19)
[2017-06-29] MEDS: QUEtiapine FUMARATE 50 MG TABLET PO SCH (22:18)
[2017-06-29] MEDS: THIAMINE HCL 100 MG TABLET (FP) PO SCH (22:18)
[2017-06-30] MEDS ORDERED: METHADONE HCL 10 MG TABLET ONE (04:23)
[2017-06-30] MEDS ORDERED: METHADONE HCL 5 MG TABLET ONE (04:23)
[2017-06-30] MEDS ORDERED: METHADONE HCL 40 MG DISPERSABLE TABLET ONE (04:24)
[2017-06-30] MEDS: chlordiazePOXIDE 5 MG CAPSULE PO SCH ×2 (05:54→10:17)
[2017-06-30] MEDS: METHADONE 40 MG, METHADONE 20 MG, METHADONE 5 MG PO SCH (05:54)
[2017-06-30] MEDS: LISINOPRIL 20 MG TABLET (FP) PO SCH (10:16)
[2017-06-30] MEDS: PRENATAL VITAMINS W/ FOLIC ACID TABLET (FP) PO SCH (10:16)
[2017-06-30] MEDS: CYCLOBENZAPRINE HCL 10 MG TABLET (FP) PO PRN (10:16)
--- NOTE | 2017-06-30 15:51 | PN ---
B[facility] Progress Note (SOAP) Subjective: Anxious, Body Aches, Fatigue. Objective: PATIENT A & O X 3, OBSERVED AMBULATING ON UNIT. NO ACUTE DISTRESS. 06/30/17 15:49 Vital Signs Temperature 98.4 F 06/30/17 14:00 Pulse Rate 92 H 06/30/17 14:00 Respiratory Rate 20 06/30/17 14:00 Blood Pressure 110/77 06/30/17 14:00 O2 Sat by Pulse Oximetry (%) Laboratory Tests 06/27/17 06/28/17 06/28/17 22:48 07:30 07:30 WBC 5.0 RBC 3.67 L Hgb 11.9 Hct 35.0 L MCV 95.4 MCH 32.5 MCHC 34.1 RDW 15.2 Plt Count 192 D MPV 8.1 Sodium 140 Potassium 3.8 Chloride 104 Carbon Dioxide 32 Anion Gap 4 L BUN 16 Creatinine 0.8 Creat Clearance w eGFR > 60 Random Glucose 108 H Calcium 8.6 Total Bilirubin 0.3 D AST 43 H D ALT 75 D Alkaline Phosphatase 102 Total Protein 6.8 Albumin 3.1 L Urine Color Ltyellow Urine Appearance Clear Urine pH 6.0 Ur Specific [place] 1.008 Urine Protein Negative Urine Glucose (UA) Negative Urine Ketones Negative Urine Blood Negative Urine Nitrite Negative Urine Bilirubin Negative Urine Urobilinogen Negative Ur Leukocyte Esterase Negative RPR Titer T.pallidum Ab (MHA) 06/28/17 07:30 WBC RBC Hgb Hct MCV MCH MCHC RDW Plt Count MPV Sodium Potassium Chloride Carbon Dioxide Anion Gap BUN Creatinine Creat Clearance w eGFR Random Glucose Calcium Total Bilirubin AST ALT Alkaline Phosphatase Total Protein Albumin Urine Color Urine Appearance Urine pH Ur Specific [place] Urine Protein Urine Glucose (UA) Urine Ketones Urine Blood Urine Nitrite Urine Bilirubin Urine Urobilinogen Ur Leukocyte Esterase RPR Titer Reactive 1:1 H T.pallidum Ab (MHA) Previously reactive LABS NOTED. PATIENT REPORTS THAT HE COMPLETED FULL COURSE OF ANTIBIOTIC TREATMENT FOR SYPHILLIS IN THE PAST. 06/30/17 16:52 Assessment: 06/30/17 15:50 WITHDRAWAL SYMPTOMS. Plan: CONTINUE DETOX.
[2017-06-30] MEDS: chlordiazePOXIDE HCL 10 MG CAPSULE PO SCH ×2 (17:13→22:26)
[2017-06-30] MEDS: THIAMINE HCL 100 MG TABLET (FP) PO SCH (22:25)
[2017-06-30] MEDS: QUEtiapine FUMARATE 50 MG TABLET PO SCH (22:26)
[2017-07-01] MEDS ORDERED: METHADONE HCL 10 MG TABLET ONE (04:31)
[2017-07-01] MEDS ORDERED: METHADONE HCL 5 MG TABLET ONE (04:31)
[2017-07-01] MEDS ORDERED: METHADONE HCL 40 MG DISPERSABLE TABLET ONE (04:32)
[2017-07-01] MEDS: METHADONE 40 MG, METHADONE 20 MG, METHADONE 5 MG PO SCH (05:26)
[2017-07-01] MEDS: chlordiazePOXIDE HCL 10 MG CAPSULE PO SCH (05:27)
[2017-07-01 06:35] VITALS: BP 121/79; PULSE 83; TEMP 96.7
--- NOTE | 2017-07-01 12:14 | DS ---
[facility] Detox Discharge Summary Admission Date: 06/27/17 Discharge Date: 07/01/17 - History Present History: Alcohol Dependence, MMTP Pertinent Past History: Alcohol related seizure disorder HLD HTN Hepatitis C - Physical Exam Results Vital Signs: Vital Signs Temperature 96.7 F L 07/01/17 06:34 Pulse Rate 83 07/01/17 06:34 Respiratory Rate 18 07/01/17 06:34 Blood Pressure 121/79 07/01/17 06:34 O2 Sat by Pulse Oximetry (%) Pertinent Admission Physical Exam Findings: Withdrawal symptoms Laboratory Tests 06/27/17 06/28/17 06/28/17 22:48 07:30 07:30 WBC 5.0 RBC 3.67 L Hgb 11.9 Hct 35.0 L MCV 95.4 MCH 32.5 MCHC 34.1 RDW 15.2 Plt Count 192 D MPV 8.1 Sodium 140 Potassium 3.8 Chloride 104 Carbon Dioxide 32 Anion Gap 4 L BUN 16 Creatinine 0.8 Creat Clearance w eGFR > 60 Random Glucose 108 H Calcium 8.6 Total Bilirubin 0.3 D AST 43 H D ALT 75 D Alkaline Phosphatase 102 Total Protein 6.8 Albumin 3.1 L Urine Color Ltyellow Urine Appearance Clear Urine pH 6.0 Ur Specific [place] 1.008 Urine Protein Negative Urine Glucose (UA) Negative Urine Ketones Negative Urine Blood Negative Urine Nitrite Negative Urine Bilirubin Negative Urine Urobilinogen Negative Ur Leukocyte Esterase Negative RPR Titer T.pallidum Ab (MHA) 06/28/17 07:30 WBC RBC Hgb Hct MCV MCH MCHC RDW Plt Count MPV Sodium Potassium Chloride Carbon Dioxide Anion Gap BUN Creatinine Creat Clearance w eGFR Random Glucose Calcium Total Bilirubin AST ALT Alkaline Phosphatase Total Protein Albumin Urine Color Urine Appearance Urine pH Ur Specific [place] Urine Protein Urine Glucose (UA) Urine Ketones Urine Blood Urine Nitrite Urine Bilirubin Urine Urobilinogen Ur Leukocyte Esterase RPR Titer Reactive 1:1 H T.pallidum Ab (MHA) Previously reactive Labs reviewed - Treatment Hospital Course: Detox Protocol Followed, Detoxed Safely, Responded well, Discharged Condition Good - Medication Discharge Medications: Ambulatory Orders Quetiapine Fumarate [Seroquel] 100 mg PO HS #30 tablet 11/23/16 Lisinopril 20 mg PO DAILY 30 Days #30 tablet 06/30/17 - Diagnosis (1) Alcohol dependence with uncomplicated withdrawal Status: Acute (2) Nicotine dependence Status: Chronic Qualifiers: Nicotine product type: cigarettes Substance use status: in withdrawal Qualified Code(s): F17.213 - Nicotine dependence, cigarettes, with withdrawal (3) HTN (hypertension) Status: Chronic Qualifiers: Hypertension type: essential hypertension Qualified Code(s): I10 - Essential (primary) hypertension (4) Hep C w/o coma, chronic Status: Chronic Qualifiers: Hepatic coma status: without hepatic coma Qualified Code(s): B18.2 - Chronic viral hepatitis C (5) Hyperlipidemia Status: Chronic Qualifiers: Hyperlipidemia type: unspecified Qualified Code(s): E78.5 - Hyperlipidemia , unspecified (6) Methadone maintenance therapy patient Status: Chronic (7) Opioid dependence on agonist therapy Status: Acute (8) Alcohol related seizure Status: Chronic - AMA Did Patient Leave Against Medical Advice: No (F/U with your PCP within 1-2 weeks )
== END 2017-07-01 08:50 | disposition home or self-care (01) | DRG 773 ==
LOC: YASAS 13:46 → Y3N 16:35
PROVIDERS: ADMIT Internal Medicine; ATTEND Internal Medicine
PROC: HZ2ZZZZ Detoxification Services for Substance Abuse Treatment (ICD-10-PCS; principal; 2017-06-27)
DX: F11.20 Opioid dependence, uncomplicated (principal); F10.230 Alcohol dependence with withdrawal, uncomplicated; F17.210 Nicotine dependence, cigarettes, uncomplicated; F19.24 Other psychoactive substance dependence with psychoactive substance-induced mood disorder; F31.81 Bipolar II disorder; F41.8 Other specified anxiety disorders; F32.9 Major depressive disorder, single episode, unspecified; G40.509 Epileptic seizures related to external causes, not intractable, without status epilepticus; E78.5 Hyperlipidemia, unspecified; I10 Essential (primary) hypertension; B18.2 Chronic viral hepatitis C
CPT/HCPCS: 36415; 80053; 81003; 85027; 86593; 86780; 93005; 93010

== ENCOUNTER 2018-01-10 10:10 | Inpatient (IN) | payer OTHER ==
--- NOTE | 2018-01-10 11:08 | HP ---
CIWA Score - CIWA Score Nausea/Vomitin Muscle Tremors: 2 Anxiety: 2 Agitation: 0-Normal Activity Paroxysmal Sweats: 1-Minimal Palms Moist Orientation: 0-Oriented Tacttile Disturbances: 1-Very Mild Itch/Numbness Auditory Disturbances: 1-Very Mild Visual Disturbances: 1-Very Mild Sensitivity Headache: 2-Mild CIWA-Ar Total Score: 12 Admission ROS BHS - HPI Chief Complaint: i need help to stop drinking alcohol Allergies/Adverse Reactions: Allergies Allergy/AdvReac Type Severity Reaction Status Date / Time Fish Containing Products Allergy Severe Swelling Verified 01/10/18 11:09 No Known Drug Allergies Allergy Verified 01/10/18 11:09 History of Present Illness: this 47 years old male with alcohol dependence seeking detox,withdrawal symptom, multiple admissions in detox but relapsing,last detox [facility] 06/27/17 to 07/01/17 seizure last 05/27 syncope hypertension bipolar disorder mmtp 65 mg/day ,last medicated today - Ebola screening Have you traveled outside of the country in the last 21 days: No Have you had contact with anyone from an Ebola affected area: No Do you have a fever: No - Review of Systems Constitutional: Loss of Appetite, Malaise, Night Sweats, Changes in sleep, Weakness EENT: reports: Nose Congestion Respiratory: reports: No Symptoms reported Cardiac: reports: No Symptoms Reported GI: reports: Nausea, Poor Appetite, Abdominal cramping : reports: No Symptoms Reported Musculoskeletal: reports: Back Pain, Muscle Pain Integumentary: reports: Dryness Neuro: reports: Headache, Tremors Endocrine: reports: No Symptoms Reported Hematology: reports: No Symptoms Reported Psychiatric: reports: No Sypmtoms Reported, Judgement Intact, Mood/Affect Appropiate, Orientated x3 (bipolar disorder), Anxious, Depressed Patient History - Patient Medical History Hx Anemia: No Hx Asthma: No Hx Chronic Obstructive Pulmonary Disease (COPD): No Hx Cancer: No Hx Cardiac Disorders: No Hx Congestive Heart Failure: No Hx Hypertension: Yes (on meds.) Hx Hypercholesterolemia: Yes (ON MEDS) Hx Pacemaker: No HX Cerebrovascular Accident: No Hx Seizures: Yes (etoh related last 05/27) Hx Dementia: No Hx Diabetes: No Hx Gastrointestinal Disorders: No Hx Liver Disease: Yes (TX'ED) Hx Genitourinary Disorders: No Hx Sexually Transmitted Disorders: No Hx Renal Disease (ESRD): No Hx Thyroid Disease: No Hx Human Immunodeficiency Virus (HIV): No Hx Hepatitis C: Yes (TX'ED) Hx Depression: Yes Hx Suicide Attempt: No Hx Bipolar Disorder: Yes Hx Schizophrenia: No Other Medical History: insomnia,no suicidal,no homicidal - Patient Surgical History Past Surgical History: No Hx Neurologic Surgery: No Hx Cataract Extraction: No Hx Cardiac Surgery: No Hx Lung Surgery: No Hx Breast Surgery: No Hx Breast Biopsy: No Hx Abdominal Surgery: No Hx Appendectomy: No Hx Cholecystectomy: No Hx Genitourinary Surgery: No Hx Section: No Hx Orthopedic Surgery: No Hx Hysterectomy: No Anesthesia Reaction: No - PPD History Previous Implant?: Yes Documented Results: Positive w/o proof Results: NEG CXR 11/23/16 PPD to be Administered?: No - Smoking Cessation Smoking history: Current every day smoker Have you smoked in the past 12 months: Yes Aproximately how many cigarettes per day: 10 Cigars Per Day: 0 Hx Chewing Tobacco Use: No Initiated information on smoking cessation: Yes 'Breaking Loose' booklet given: 01/10/18 - Substance & Tx. History Hx Alcohol Use: Yes Hx Substance Use: No Substance Use Type: Alcohol Hx Substance Use Treatment: Yes ([facility] 06/27/17 to 07/01/17) Family Disease History - Family Disease History Family Disease History: Other: Father (ALCOHOLISM,), Mother (HTN/ ALCOHOLISM) Admission Physical Exam [facility] - Physical General Appearance: Yes: Moderate Distress, Tremorous, Irritable, Sweating, Anxious HEENTM: Yes: Normal ENT Inspection, HUMBERTO, Pharynx Normal Respiratory: Yes: Lungs Clear, Normal Breath Sounds, No Respiratory Distress Neck: Yes: Within Normal Limits, Supple, Trachea in good position Breast: Yes: Within Normal Limits Cardiology: Yes: Within Normal Limits, Regular Rhythm, Regular Rate, S1, S2 Abdominal: Yes: Within Normal Limits, Normal Bowel Sounds, Non Tender, Flat, Soft Genitourinary: Yes: Within Normal Limits Back: Yes: Muscle Spasm Musculoskeletal: Yes: full range of Motion, Back pain, Muscle Pain Extremities: Yes: Normal Range of Motion, Tremors Neurological: Yes: instrument installer II-XII NML intact, Fully Oriented, Alert, Motor Strength 5/5 Integumentary: Yes: Dry Lymphatic: Yes: Within Normal Limits - Diagnostic (1) Alcohol dependence with uncomplicated withdrawal Current Visit: No Status: Acute (2) Opioid dependence on agonist therapy Current Visit: No Status: Acute (3) PPD positive Current Visit: No Status: Acute (4) Alcohol related seizure Current Visit: No Status: Chronic (5) Hepatitis C Current Visit: No Status: Chronic Qualifiers: Viral hepatitis chronicity: chronic Hepatic coma status: without hepatic coma Qualified Code(s): B18.2 - Chronic viral hepatitis C (6) Hyperlipidemia Current Visit: No Status: Chronic Qualifiers: Hyperlipidemia type: unspecified Qualified Code(s): E78.5 - Hyperlipidemia , unspecified (7) Alcohol dependence with uncomplicated intoxication Current Visit: Yes Status: Acute (8) Methadone maintenance therapy patient Current Visit: No Status: Chronic Comment: LAST DOSE (45 MG): 01/04/16. VERIFY TOMORROW, AM. (9) Bipolar disorder Current Visit: Yes Status: Acute Cleared for Admission S - Detox or Rehab [facility] Level of Care: Medically Managed Detox Regimen/Protocol: Librium S Breath Alcohol Content Breath Alcohol Content: 0.184
[2018-01-10] MEDS ORDERED: MENTHOL/PHENOL 1 EACH UD MM PRN (11:25)
[2018-01-10] MEDS ORDERED: P-EPHED 60MG/TRIPROLIDI 2.5MG TABLET PO PRN (11:25)
[2018-01-10] MEDS ORDERED: MAGNESIUM CITRATE 300 ML BOTTLE PO PRN (11:25)
[2018-01-10] MEDS ORDERED: guaiFENesin/D-METHORPHAN HB 10 ML UNIT-DOSE CUPS PO PRN (11:25)
[2018-01-10] MEDS ORDERED: ACETAMINOPHEN 325 MG TABLET (FP) PO PRN (11:25)
[2018-01-10] MEDS ORDERED: IBUPROFEN 400 MG TABLET (FP) PO PRN (11:25)
[2018-01-10] MEDS ORDERED: MAG HYDROX/AL HYDROX/SIMETH 30 ML UNIT-DOSE CUP PO PRN (11:25)
[2018-01-10] MEDS ORDERED: MAGNESIUM HYDROX 2400MG/30ML ORAL SUSPENSION 30 ML CUP PO PRN (11:25)
[2018-01-10] MEDS ORDERED: LOPERAMIDE HCL 2 MG CAPSULE PO PRN (11:25)
[2018-01-10 11:26] VITALS: BMI 25.9
[2018-01-10] MEDS: LISINOPRIL 20 MG TABLET (FP) PO SCH (12:50)
[2018-01-10] MEDS: chlordiazePOXIDE HCL 25 MG CAPSULE PO PRN ×2 (13:26→19:54)
--- NOTE | 2018-01-10 15:10 | EKG ---
Test Reason : Blood Pressure : / mmHG Vent. Rate : 088 BPM Atrial Rate : 088 BPM P-R Int : 132 ms QRS Dur : 096 ms QT Int : 426 ms P-R-T Axes : 037 -22 -19 degrees QTc Int : 515 ms NORMAL SINUS RHYTHM VOLTAGE CRITERIA FOR LEFT VENTRICULAR HYPERTROPHY NONSPECIFIC ST ABNORMALITY PROLONGED QT ABNORMAL ECG WHEN COMPARED WITH ECG OF 28-JUN-2017 09:27, NONSPECIFIC T WAVE ABNORMALITY NO LONGER EVIDENT IN LATERAL LEADS Confirmed by ULISES VAZQUEZ MD ([id number]) on 01/10/2018 3:09:48 PM Referred By: Confirmed By:ULISES VAZQUEZ MD
--- NOTE | 2018-01-10 16:48 | CONSULT ---
[facility] Psychiatric Consult - Data Date of interview: 01/10/18 Admission source: [facility] Identifying data: Patient is a 47 year old single male, unemployed, domiciled ( lives with someone.) This is one of multiple admissions for patient. Patient admitted to for alcohol dependence. Substance Abuse History: Smoking Cessation. Smoking history: Current every day smoker. Have you smoked in the past 12 months: Yes. Aproximately how many cigarettes per day: 10. Cigars Per Day: 0. Hx Chewing Tobacco Use: No. Initiated information on smoking cessation: Yes. 'Breaking Loose' booklet given : 01/10/18. - Substance & Tx. History. Hx Alcohol Use: Yes. Hx Substance Use : No. Substance Use Type: Alcohol. Hx Substance Use Treatment: Yes ([facility] 06/27 to 07/01/17) Medical History: hypertension, hypercholesterolemia, Seizures (etoh related last 05/27), Hep C Psychiatric History: Patient reports two psychiatric hospitalization at [facility] (2006+ 2014). Outpatient psychiatric services is provided at [facility] ( [facility]). He reports having an appointment scheduled for next week. Self reports diagnosis of bipolar disorder. Patient is prescribed seroquel 100mg + lexapro 20mg +ambien 10mg. Patient reports nonadherence to lexapro. Patient denies h/o suicide attempt. Physical/Sexual Abuse/Trauma History: denies. Mental Status Exam - Mental Status Exam Alert and Oriented to: Time, Place, Person Cognitive Function: Good Patient Appearance: Well Groomed Mood: Euthymic Affect: Mood Congruent Patient Behavior: Appropriate, Cooperative Speech Pattern: Appropriate Voice Loudness: Normal Thought Process: Intact, Goal Oriented Thought Disorder: Not Present Hallucinations: Denies Suicidal Ideation: Denies Homicidal Ideation: Denies Insight/Judgement: Poor Sleep: Poorly Appetite: Fair Muscle strength/Tone: Normal Gait/Station: Normal Psychiatric Findings - Problem List ([place] 1, 2,3) (1) Insomnia Current Visit: Yes Status: Acute (2) Alcohol dependence with uncomplicated withdrawal Current Visit: Yes Status: Acute (3) Substance induced mood disorder Current Visit: Yes Status: Suspected (4) Bipolar II disorder Current Visit: No Status: Suspected (5) Methadone maintenance therapy patient Current Visit: No Status: Chronic Comment: LAST DOSE (45 MG): 01/04/16. VERIFY TOMORROW, AM. - Initial Treatment Plan Initial Treatment Plan: Psychoeducation provided. Detoxification in progress. Due to prolong QT and QTC of 515 seroquel will not be ordered. Will order ambien 10mg for insomnia. Benefits and side effects discussed. Patient made aware of the risk of parasomnia when accepting ambien. Verbal consent given.
[2018-01-10] MEDS: chlordiazePOXIDE HCL 25 MG CAPSULE PO SCH ×2 (17:27→22:03)
[2018-01-10] MEDS ORDERED: cloNIDine HCL 0.1 MG TABLET PO ONE (17:58)
--- NOTE | 2018-01-10 18:00 | PN ---
S Progress Note Note: Vital Signs Temperature 98.7 F 01/10/18 17:00 Pulse Rate 96 H 01/10/18 17:00 Respiratory Rate 18 01/10/18 17:00 Blood Pressure 153/109 H 01/10/18 17:00 O2 Sat by Pulse Oximetry (%) asymptomatic elevated bp withdrawal sx clonidine 0.1 mg one dose increase fluids continue to monitor
[2018-01-10 21:06] LABS: URINE APPEARANCE CLEAR; URINE BILIRUBIN NEGATIVE (<2.0 mg/dL); URINE COLOR YELLOW; URINE GLUCOSE (UA) NEGATIVE (NEGATIVE); URINE KETONE NEGATIVE (NEGATIVE); URINE LEUK ESTERASE NEGATIVE (NEGATIVE); URINE NITRITE NEGATIVE (NEGATIVE); URINE PROTEIN 2+ (NEGATIVE)
[2018-01-10 21:19] LABS: URINE BACTERIA RARE /hpf (NONE SEEN); URINE MUCUS RARE; YEAST MODERATE
[2018-01-10] MEDS ORDERED: MELATONIN 5 MG TABLETS PO PRN (22:00)
[2018-01-10] MEDS ORDERED: QUEtiapine FUMARATE 50 MG TABLET PO SCH (22:00)
[2018-01-10] MEDS: ZOLPIDEM TARTRATE 10 MG TABLET (PARK CARE ONLY) PO PRN (22:03)
[2018-01-10] MEDS: THIAMINE HCL 100 MG TABLET (FP) PO SCH (22:03)
[2018-01-11] MEDS: chlordiazePOXIDE HCL 25 MG CAPSULE PO SCH ×4 (05:43→22:03)
[2018-01-11] MEDS ORDERED: METHADONE HCL 10 MG TABLET PO SCH (09:00)
[2018-01-11] MEDS ORDERED: METHADONE HCL 5 MG TABLET ONE (09:12)
[2018-01-11] MEDS ORDERED: METHADONE HCL 40 MG DISPERSABLE TABLET ONE (09:12)
[2018-01-11] MEDS ORDERED: METHADONE HCL 10 MG TABLET ONE (09:12)
[2018-01-11] MEDS ORDERED: METHADONE 40 MG, METHADONE 20 MG, METHADONE 5 MG PO ONE (09:15)
[2018-01-11] MEDS: LISINOPRIL 20 MG TABLET (FP) PO SCH (09:16)
[2018-01-11] MEDS: PRENATAL VITAMINS W/ FOLIC ACID TABLET (FP) PO SCH (09:16)
[2018-01-11 10:41] LABS: WHITE BLOOD COUNT 4.4 K/mm3 (4.0-10.0)
[2018-01-11 10:45] LABS: HEMATOCRIT 44.9 % (35.4-49); HEMOGLOBIN 14.8 GM/dL (11.7-16.9); MCH 32.5 pg (25.7-33.7); MCHC 32.9 g/dl (32.0-35.9); MEAN CELL VOLUME 98.7 fl (80-96); MEAN PLT VOLUME 9.9 fl (7.5-11.1); PLATELET COUNT 181 K/MM3 (134-434); RBC 4.55 M/mm3 (4.00-5.60); RDW 15.3 % (11.9-15.9)
[2018-01-11 10:46] LABS: ALBUMIN 4.1 g/dl (3.4-5.0); ALK PHOS 159 U/L (45-117); ANION GAP 11 MMOL/L (8-16); BILIRUBIN,TOTAL 0.8 mg/dL (0.2-1); BLOOD UREA NITROGEN 11 mg/dL (7-18); CALCIUM 8.7 mg/dL (8.5-10.1); CHLORIDE 100 mmol/L (98-107); CO2 30 mmol/L (21-32); CREATININE 0.7 mg/dL (0.55-1.3); GLUCOSE,RANDOM 129 mg/dL (74-106); POTASSIUM 3.5 mmol/L (3.5-5.1); SGOT/AST 322 U/L (15-37); SGPT/ALT 314 U/L (13-61); SODIUM 140 mmol/L (136-145); TOT PROT 8.8 g/dl (6.4-8.2)
[2018-01-11 12:12] LABS: RPR REACTIVE 1:1 (NONREACTIVE)
[2018-01-11 12:15] LABS: TREPONEMA ANTIBODY PREVIOUSLY REACTIVE (NONREACTIVE)
[2018-01-11] MEDS: chlordiazePOXIDE HCL 25 MG CAPSULE PO PRN ×2 (13:42→20:19)
--- NOTE | 2018-01-11 14:48 | PN ---
S CIWA - CIWA Score Nausea/Vomitin-Mild Nausea/No Vomiting Muscle Tremors: 4-Moderate,w/Arms Extend Anxiety: 4-Mod. Anxious/Guarded Agitation: 3 Paroxysmal Sweats: 3 Orientation: 0-Oriented Tacttile Disturbances: 1-Very Mild Itch/Numbness Auditory Disturbances: 0-None Visual Disturbances: 0-None Headache: 1-Very Mild CIWA-Ar Total Score: 17 BHS Progress Note (SOAP) Subjective: Anxiety, sweating, interrupted sleep Objective: 01/11/18 14:43 Last Vital Signs Temp Pulse Resp BP Pulse Ox 98.3 F 89 18 128/95 01/11/18 10:00 01/11/18 13:30 01/11/18 13:30 01/11/18 10:00 Laboratory Tests 01/10/18 01/11/18 01/11/18 13:43 05:40 05:40 WBC 4.4 RBC 4.55 Hgb 14.8 Hct 44.9 D MCV 98.7 H MCH 32.5 MCHC 32.9 RDW 15.3 Plt Count 181 MPV 9.9 D Sodium 140 Potassium 3.5 Chloride 100 Carbon Dioxide 30 Anion Gap 11 BUN 11 Creatinine 0.7 Creat Clearance w eGFR > 60 Random Glucose 129 H Calcium 8.7 Total Bilirubin 0.8 AST 322 H ALT 314 H Alkaline Phosphatase 159 H Total Protein 8.8 H Albumin 4.1 Urine Color Yellow Urine Appearance Clear Urine pH 6.0 Ur Specific [place] 1.017 Urine Protein 2+ H Urine Glucose (UA) Negative Urine Ketones Negative Urine Blood Negative Urine Nitrite Negative Urine Bilirubin Negative Urine Urobilinogen 2.0 Ur Leukocyte Esterase Negative Urine WBC (Auto) 64 Urine RBC (Auto) None Urine Bacteria Rare Urine Mucus Rare Urine Yeast Moderate RPR Titer T.pallidum Ab (MHA) 01/11/18 05:40 WBC RBC Hgb Hct MCV MCH MCHC RDW Plt Count MPV Sodium Potassium Chloride Carbon Dioxide Anion Gap BUN Creatinine Creat Clearance w eGFR Random Glucose Calcium Total Bilirubin AST ALT Alkaline Phosphatase Total Protein Albumin Urine Color Urine Appearance Urine pH Ur Specific [place] Urine Protein Urine Glucose (UA) Urine Ketones Urine Blood Urine Nitrite Urine Bilirubin Urine Urobilinogen Ur Leukocyte Esterase Urine WBC (Auto) Urine RBC (Auto) Urine Bacteria Urine Mucus Urine Yeast RPR Titer Reactive 1:1 H T.pallidum Ab (MHA) Previously reactive Labs reviewed: serum glucose 129, AST 322, ALT 314, abnormal UA Assessment: 01/11/18 14:43 Withdrawal symptoms Noted with hyperglycemia, elevated LFTs and abnormal UA Plan: Continue detox Hyperglycemia: repeat fasting glucose Elevated LFTs: repeat AST, ALT Abnormal UA: encouraged PO water intake, repeat UA
[2018-01-11] MEDS: hydrOXYzine PAMOATE 25 MG CAPSULE (FP) PO PRN (16:41)
--- NOTE | 2018-01-11 17:12 | PN ---
[facility] Progress Note Note: Vital Signs - 24 hr 01/10/18 01/10/18 01/10/18 17:30 18:00 18:30 Temperature Pulse Rate 91 H 91 H 88 Respiratory 18 18 18 Rate Blood Pressure 01/10/18 01/10/18 01/10/18 20:00 20:30 21:00 Temperature Pulse Rate 97 H 91 H 83 Respiratory 18 18 18 Rate Blood Pressure 01/10/18 01/10/18 01/10/18 21:15 21:30 22:00 Temperature 98.8 F 98.2 F Pulse Rate 97 H 81 81 Respiratory 18 18 18 Rate Blood Pressure 147/104 H 150/100 01/10/18 01/10/18 01/10/18 22:30 23:00 23:30 Temperature Pulse Rate 82 82 83 Respiratory 18 18 18 Rate Blood Pressure 01/11/18 01/11/18 01/11/18 00:00 00:30 01:00 Temperature Pulse Rate 80 72 77 Respiratory 18 18 18 Rate Blood Pressure 01/11/18 01/11/18 01/11/18 01:30 02:00 02:30 Temperature Pulse Rate 77 76 75 Respiratory 18 18 18 Rate Blood Pressure 01/11/18 01/11/18 01/11/18 03:00 03:30 04:00 Temperature Pulse Rate 73 70 73 Respiratory 18 18 18 Rate Blood Pressure 01/11/18 01/11/18 01/11/18 04:30 05:00 05:30 Temperature Pulse Rate 72 70 70 Respiratory 18 18 18 Rate Blood Pressure 01/11/18 01/11/18 01/11/18 06:00 06:30 06:33 Temperature 98.7 F Pulse Rate 67 68 70 Respiratory 18 18 18 Rate Blood Pressure 152/98 01/11/18 01/11/18 01/11/18 07:00 07:30 08:00 Temperature Pulse Rate 70 72 72 Respiratory 18 18 18 Rate Blood Pressure 01/11/18 01/11/18 01/11/18 08:30 09:00 09:30 Temperature Pulse Rate 83 84 84 Respiratory 20 Rate Blood Pressure 01/11/18 01/11/18 01/11/18 09:56 10:00 10:30 Temperature 98.4 F 98.3 F Pulse Rate 74 79 84 Respiratory 18 18 20 Rate Blood Pressure 159/99 128/95 11/02/18 11/02/18 11/02/18 11:00 11:30 12:00 Temperature Pulse Rate 86 84 86 Respiratory 20 20 18 Rate Blood Pressure 01/11/18 01/11/18 01/11/18 12:30 13:00 13:30 Temperature Pulse Rate 84 86 89 Respiratory 18 18 18 Rate Blood Pressure 01/11/18 16:45 Temperature 99 F Pulse Rate 73 Respiratory 18 Rate Blood Pressure 163/105 H called by nurse for high BP- pt aymptomatic. Has liisnopril for HTN in AM. Will given clonidine 0.2 mg STAT f/u BP
[2018-01-11] MEDS ORDERED: cloNIDine HCL 0.1 MG TABLET PO ONE ×2 (17:30→21:45)
[2018-01-11] MEDS: ZOLPIDEM TARTRATE 10 MG TABLET (PARK CARE ONLY) PO PRN (22:03)
[2018-01-11] MEDS: THIAMINE HCL 100 MG TABLET (FP) PO SCH (22:03)
[2018-01-12] MEDS ORDERED: METHADONE HCL 40 MG DISPERSABLE TABLET ONE (04:38)
[2018-01-12] MEDS ORDERED: METHADONE HCL 10 MG TABLET ONE (04:39)
[2018-01-12] MEDS ORDERED: METHADONE HCL 5 MG TABLET ONE (04:39)
[2018-01-12] MEDS: METHADONE 40 MG, METHADONE 20 MG, METHADONE 5 MG PO SCH (05:39)
[2018-01-12] MEDS: chlordiazePOXIDE HCL 25 MG CAPSULE PO SCH ×2 (05:39→10:17)
--- NOTE | 2018-01-12 10:01 | PN ---
[facility] CIWA - CIWA Score Nausea/Vomitin-No Nausea/No Vomiting Muscle Tremors: 4-Moderate,w/Arms Extend Anxiety: 3 Agitation: 2 Paroxysmal Sweats: 2 Orientation: 3-Disoriented Date>2 days Tacttile Disturbances: 1-Very Mild Itch/Numbness Auditory Disturbances: 0-None Visual Disturbances: 0-None Headache: 0-None Present CIWA-Ar Total Score: 15 BHS Progress Note (SOAP) Subjective: chills, shakes, interrupted sleep Objective: 01/12/18 10:01 Vital Signs Temperature 98.2 F 01/12/18 09:12 Pulse Rate 73 01/12/18 09:12 Respiratory Rate 16 01/12/18 09:12 Blood Pressure 118/87 01/12/18 09:12 O2 Sat by Pulse Oximetry (%) Laboratory Last Values WBC 4.4 K/mm3 (4.0-10.0) 01/11/18 05:40 RBC 4.55 M/mm3 (4.00-5.60) 01/11/18 05:40 Hgb 14.8 GM/dL (11.7-16.9) 01/11/18 05:40 Hct 44.9 % (35.4-49) D 01/11/18 05:40 MCV 98.7 fl (80-96) H 01/11/18 05:40 MCH 32.5 pg (25.7-33.7) 01/11/18 05:40 MCHC 32.9 g/dl (32.0-35.9) 01/11/18 05:40 RDW 15.3 % (11.9-15.9) 01/11/18 05:40 Plt Count 181 K/MM3 (134-434) 01/11/18 05:40 MPV 9.9 fl (7.5-11.1) D 01/11/18 05:40 Sodium 140 mmol/L (136-145) 01/11/18 05:40 Potassium 3.5 mmol/L (3.5-5.1) 01/11/18 05:40 Chloride 100 mmol/L (98-107) 01/11/18 05:40 Carbon Dioxide 30 mmol/L (21-32) 01/11/18 05:40 Anion Gap 11 MMOL/L (8-16) 01/11/18 05:40 BUN 11 mg/dL (7-18) 01/11/18 05:40 Creatinine 0.7 mg/dL (0.55-1.3) 01/11/18 05:40 Creat Clearance w eGFR > 60 (>60) 01/11/18 05:40 Random Glucose 129 mg/dL (74-106) H 01/11/18 05:40 Calcium 8.7 mg/dL (8.5-10.1) 01/11/18 05:40 Total Bilirubin 0.8 mg/dL (0.2-1) 01/11/18 05:40 AST 322 U/L (15-37) H 01/11/18 05:40 ALT 314 U/L (13-61) H 01/11/18 05:40 Alkaline Phosphatase 159 U/L (45-117) H 01/11/18 05:40 Total Protein 8.8 g/dl (6.4-8.2) H 01/11/18 05:40 Albumin 4.1 g/dl (3.4-5.0) 01/11/18 05:40 Urine Color Yellow 01/10/18 13:43 Urine Appearance Clear 01/10/18 13:43 Urine pH 6.0 (5.0-8.0) 01/10/18 13:43 Ur Specific [place] 1.017 (1.010-1.035) 01/10/18 13:43 Urine Protein 2+ (NEGATIVE) H 01/10/18 13:43 Urine Glucose (UA) Negative (NEGATIVE) 01/10/18 13:43 Urine Ketones Negative (NEGATIVE) 01/10/18 13:43 Urine Blood Negative (NEGATIVE) 01/10/18 13:43 Urine Nitrite Negative (NEGATIVE) 01/10/18 13:43 Urine Bilirubin Negative (<2.0 mg/dL) 01/10/18 13:43 Urine Urobilinogen 2.0 mg/dL (0.2-1.0) 01/10/18 13:43 Ur Leukocyte Esterase Negative (NEGATIVE) 01/10/18 13:43 Urine WBC (Auto) 64 /hpf (3-5) 01/10/18 13:43 Urine RBC (Auto) None /hpf (0-3) 01/10/18 13:43 Urine Bacteria Rare /hpf (NONE SEEN) 01/10/18 13:43 Urine Mucus Rare 01/10/18 13:43 Urine Yeast Moderate 01/10/18 13:43 RPR Titer Reactive 1:1 (NONREACTIVE) H 01/11/18 05:40 T.pallidum Ab (MHA) Previously reactive (NONREACTIVE) 01/11/18 05:40 repeat labs pending Aox3 no distress no adventitious breath sounds full ROM ambulatory + tremors b/t upper extremities Assessment: 01/12/18 15:14 withdrawal sx Plan: baclofen 10 mg bid for tremors increase fluids continue detox continue to monitor
[2018-01-12] MEDS: LISINOPRIL 20 MG TABLET (FP) PO SCH (10:13)
[2018-01-12] MEDS: PRENATAL VITAMINS W/ FOLIC ACID TABLET (FP) PO SCH (10:13)
[2018-01-12 10:23] LABS: GLUCOSE,FASTING 114 mg/dL (74-106); SGOT/AST 194 U/L (15-37); SGPT/ALT 254 U/L (13-61)
[2018-01-12] MEDS: chlordiazePOXIDE 5 MG CAPSULE PO SCH ×2 (17:49→22:22)
[2018-01-12 19:25] LABS: URINE APPEARANCE CLEAR; URINE BILIRUBIN NEGATIVE (<2.0 mg/dL); URINE COLOR LTYELLOW; URINE GLUCOSE (UA) NEGATIVE (NEGATIVE); URINE KETONE NEGATIVE (NEGATIVE); URINE LEUK ESTERASE NEGATIVE (NEGATIVE); URINE NITRITE NEGATIVE (NEGATIVE); URINE PROTEIN NEGATIVE (NEGATIVE); URINE UROBILINOGEN NEGATIVE mg/dL (0.2-1.0)
[2018-01-12] MEDS: THIAMINE HCL 100 MG TABLET (FP) PO SCH (22:22)
[2018-01-12] MEDS: BACLOFEN 10 MG TABLET (FP) PO SCH (22:22)
[2018-01-12] MEDS: ZOLPIDEM TARTRATE 10 MG TABLET (PARK CARE ONLY) PO PRN (22:24)
[2018-01-13] MEDS ORDERED: METHADONE HCL 40 MG DISPERSABLE TABLET ONE (04:47)
[2018-01-13] MEDS ORDERED: METHADONE HCL 5 MG TABLET ONE (04:48)
[2018-01-13] MEDS ORDERED: METHADONE HCL 10 MG TABLET ONE (04:48)
[2018-01-13] MEDS: chlordiazePOXIDE 5 MG CAPSULE PO SCH ×2 (05:20→10:22)
[2018-01-13] MEDS: METHADONE 40 MG, METHADONE 20 MG, METHADONE 5 MG PO SCH (05:20)
[2018-01-13] MEDS: hydrOXYzine PAMOATE 25 MG CAPSULE (FP) PO PRN (09:29)
[2018-01-13] MEDS: PRENATAL VITAMINS W/ FOLIC ACID TABLET (FP) PO SCH (09:29)
[2018-01-13] MEDS: BACLOFEN 10 MG TABLET (FP) PO SCH ×2 (09:29→22:07)
[2018-01-13] MEDS ORDERED: LISINOPRIL 20 MG TABLET (FP) PO SCH (10:00)
[2018-01-13] MEDS: chlordiazePOXIDE HCL 10 MG CAPSULE PO SCH ×2 (17:02→22:07)
--- NOTE | 2018-01-13 17:33 | PN ---
BHS Progress Note (SOAP) Subjective: Tremor, interrupted sleep Objective: 01/13/18 17:32 Last Vital Signs Temp Pulse Resp BP Pulse Ox 97.1 F L 97 H 20 137/96 01/13/18 13:53 01/13/18 13:53 01/13/18 13:53 01/13/18 13:53 Laboratory Tests 01/10/18 01/11/18 01/11/18 13:43 05:40 05:40 WBC 4.4 RBC 4.55 Hgb 14.8 Hct 44.9 D MCV 98.7 H MCH 32.5 MCHC 32.9 RDW 15.3 Plt Count 181 MPV 9.9 D Sodium 140 Potassium 3.5 Chloride 100 Carbon Dioxide 30 Anion Gap 11 BUN 11 Creatinine 0.7 Creat Clearance w eGFR > 60 Random Glucose 129 H Fasting Glucose Calcium 8.7 Total Bilirubin 0.8 AST 322 H ALT 314 H Alkaline Phosphatase 159 H Total Protein 8.8 H Albumin 4.1 Urine Color Yellow Urine Appearance Clear Urine pH 6.0 Ur Specific [place] 1.017 Urine Protein 2+ H Urine Glucose (UA) Negative Urine Ketones Negative Urine Blood Negative Urine Nitrite Negative Urine Bilirubin Negative Urine Urobilinogen 2.0 Ur Leukocyte Esterase Negative Urine WBC (Auto) 64 Urine RBC (Auto) None Urine Bacteria Rare Urine Mucus Rare Urine Yeast Moderate RPR Titer T.pallidum Ab (A) 01/11/18 01/12/18 01/12/18 05:40 07:08 08:00 WBC RBC Hgb Hct MCV MCH MCHC RDW Plt Count MPV Sodium Potassium Chloride Carbon Dioxide Anion Gap BUN Creatinine Creat Clearance w eGFR Random Glucose Fasting Glucose 114 H Calcium Total Bilirubin AST 194 H ALT 254 H Alkaline Phosphatase Total Protein Albumin Urine Color Ltyellow Urine Appearance Clear Urine pH 7.0 Ur Specific [place] 1.011 Urine Protein Negative Urine Glucose (UA) Negative Urine Ketones Negative Urine Blood Negative Urine Nitrite Negative Urine Bilirubin Negative Urine Urobilinogen Negative Ur Leukocyte Esterase Negative Urine WBC (Auto) Urine RBC (Auto) Urine Bacteria Urine Mucus Urine Yeast RPR Titer Reactive 1:1 H T.pallidum Ab (MHA) Previously reactive Labs reviewed Assessment: 01/13/18 17:33 Withdrawal symptoms Plan: Continue detox Encouraged PO water intake HTN: lisinopril increased to 40mg PO daily
[2018-01-13] MEDS ORDERED: cloNIDine HCL 0.1 MG TABLET PO ONE (20:20)
--- NOTE | 2018-01-13 20:23 | PN ---
S Progress Note Note: Vital Signs - 24 hr 01/12/18 01/13/18 01/13/18 22:00 00:30 03:29 Temperature 97.3 F L Pulse Rate 75 Respiratory 18 18 18 Rate Blood Pressure 133/100 01/13/18 01/13/18 01/13/18 06:20 09:31 13:53 Temperature 99.3 F 98.0 F 97.1 F L Pulse Rate 72 101 H 97 H Respiratory 18 20 20 Rate Blood Pressure 141/96 143/101 H 137/96 01/13/18 18:02 Temperature 98.2 F Pulse Rate 77 Respiratory 16 Rate Blood Pressure 147/105 H Clonidine 0.1mg ordered for high BP. Ongoing monitoring of BP Continue increased hydration
[2018-01-13] MEDS: ZOLPIDEM TARTRATE 10 MG TABLET (PARK CARE ONLY) PO PRN (22:07)
[2018-01-13] MEDS: THIAMINE HCL 100 MG TABLET (FP) PO SCH (22:07)
[2018-01-14] MEDS ORDERED: METHADONE HCL 40 MG DISPERSABLE TABLET ONE (03:46)
[2018-01-14] MEDS ORDERED: METHADONE HCL 5 MG TABLET ONE (03:46)
[2018-01-14] MEDS ORDERED: METHADONE HCL 10 MG TABLET ONE (03:47)
[2018-01-14] MEDS: METHADONE 40 MG, METHADONE 20 MG, METHADONE 5 MG PO SCH (05:46)
[2018-01-14] MEDS: chlordiazePOXIDE HCL 10 MG CAPSULE PO SCH (05:46)
[2018-01-14 06:24] VITALS: BP 151/105; PULSE 68; TEMP 97.5
--- NOTE | 2018-01-14 12:02 | DS ---
[facility] Detox Discharge Summary Admission Date: 01/10/18 Discharge Date: 01/14/18 - History Present History: Alcohol Dependence, Opioid Dependence Pertinent Past History: Alcohol dependence Opioid dependence PPD Positive Alcohol related seizure disorder Hepatitis C HLD Bipolar disorder - Physical Exam Results Pertinent Admission Physical Exam Findings: Withdrawal symptoms Laboratory Tests 01/10/18 01/11/18 01/11/18 13:43 05:40 05:40 WBC 4.4 RBC 4.55 Hgb 14.8 Hct 44.9 D MCV 98.7 H MCH 32.5 MCHC 32.9 RDW 15.3 Plt Count 181 MPV 9.9 D Sodium 140 Potassium 3.5 Chloride 100 Carbon Dioxide 30 Anion Gap 11 BUN 11 Creatinine 0.7 Creat Clearance w eGFR > 60 Random Glucose 129 H Fasting Glucose Calcium 8.7 Total Bilirubin 0.8 AST 322 H ALT 314 H Alkaline Phosphatase 159 H Total Protein 8.8 H Albumin 4.1 Urine Color Yellow Urine Appearance Clear Urine pH 6.0 Ur Specific [place] 1.017 Urine Protein 2+ H Urine Glucose (UA) Negative Urine Ketones Negative Urine Blood Negative Urine Nitrite Negative Urine Bilirubin Negative Urine Urobilinogen 2.0 Ur Leukocyte Esterase Negative Urine WBC (Auto) 64 Urine RBC (Auto) None Urine Bacteria Rare Urine Mucus Rare Urine Yeast Moderate RPR Titer T.pallidum Ab (MHA) 01/11/18 01/12/18 01/12/18 05:40 07:08 08:00 WBC RBC Hgb Hct MCV MCH MCHC RDW Plt Count MPV Sodium Potassium Chloride Carbon Dioxide Anion Gap BUN Creatinine Creat Clearance w eGFR Random Glucose Fasting Glucose 114 H Calcium Total Bilirubin AST 194 H ALT 254 H Alkaline Phosphatase Total Protein Albumin Urine Color Ltyellow Urine Appearance Clear Urine pH 7.0 Ur Specific [place] 1.011 Urine Protein Negative Urine Glucose (UA) Negative Urine Ketones Negative Urine Blood Negative Urine Nitrite Negative Urine Bilirubin Negative Urine Urobilinogen Negative Ur Leukocyte Esterase Negative Urine WBC (Auto) Urine RBC (Auto) Urine Bacteria Urine Mucus Urine Yeast RPR Titer Reactive 1:1 H T.pallidum Ab (MHA) Previously reactive Labs reviewed - Treatment Hospital Course: Detox Protocol Followed, Detoxed Safely, Responded well, Discharged Condition Good - Medication Discharge Medications: Ambulatory Orders Quetiapine Fumarate [Seroquel] 100 mg PO HS #30 tablet 11/23/16 Lisinopril 20 mg PO DAILY 30 Days #30 tablet 06/30/17 - Diagnosis (1) Elevated LFTs Status: Acute (2) Hyperglycemia Status: Acute (3) Alcohol dependence with uncomplicated withdrawal Status: Acute (4) Opioid dependence on agonist therapy Status: Acute (5) PPD positive Status: Chronic (6) Alcohol related seizure Status: Chronic (7) Hep C w/o coma, chronic Status: Chronic Qualifiers: Hepatic coma status: without hepatic coma Qualified Code(s): B18.2 - Chronic viral hepatitis C (8) Hyperlipidemia Status: Chronic Qualifiers: Hyperlipidemia type: unspecified Qualified Code(s): E78.5 - Hyperlipidemia , unspecified (9) Bipolar II disorder Status: Chronic - AMA Did Patient Leave Against Medical Advice: No (F/U with your PCP within 1-2 weeks )
== END 2018-01-14 07:01 | disposition home or self-care (01) | DRG 773 ==
LOC: YASAS 10:10 → Y3N 11:53
PROC: HZ2ZZZZ Detoxification Services for Substance Abuse Treatment (ICD-10-PCS; principal; 2018-01-10)
DX: F10.230 Alcohol dependence with withdrawal, uncomplicated (principal); F11.20 Opioid dependence, uncomplicated; F17.210 Nicotine dependence, cigarettes, uncomplicated; F31.81 Bipolar II disorder; F19.24 Other psychoactive substance dependence with psychoactive substance-induced mood disorder; I10 Essential (primary) hypertension; E78.00 Pure hypercholesterolemia, unspecified; B18.2 Chronic viral hepatitis C; R73.9 Hyperglycemia, unspecified; R94.5 Abnormal results of liver function studies; R76.11 Nonspecific reaction to tuberculin skin test without active tuberculosis; R82.90 Unspecified abnormal findings in urine; G47.00 Insomnia, unspecified; G25.1 Drug-induced tremor; Z86.69 Personal history of other diseases of the nervous system and sense organs; Z91.013 Allergy to seafood
CPT/HCPCS: 36415; 80053; 81003; 81015; 82947; 84450; 84460; 85027; 86593; 86780; 93005; 93010; J0475; J0735

== ENCOUNTER 2018-02-07 10:38 | Inpatient (IN) | payer OTHER ==
[2018-02-07 12:01] VITALS: BMI 27.7
--- NOTE | 2018-02-07 14:59 | HP ---
CIWA Score - Admission Criteria [facility] Guidelines: Admission for Medically Managed Detox: Requires at least one of the followin. CIWA greater than 12 2. Seizures within the past 24 hours 3. Delirium tremens within the past 24 hours 4. Hallucinations within the past 24 hours 5. Acute intervention needed for co occurring medical disorder 6. Acute intervention needed for co occurring psychiatric disorder 7. Severe withdrawal that cannot be handled at a lower level of care (continued vomiting, continued diarrhea, abnormal vital signs) requiring intravenous medication and/or fluids 8. Admission ROS [facility] - HPI Chief Complaint: i am here for rehab from alcohol and heroin abused,mmtp 65 mgs/day Allergies/Adverse Reactions: Allergies Allergy/AdvReac Type Severity Reaction Status Date / Time Fish Containing Products Allergy Severe Swelling Verified 02/07/18 11:40 No Known Drug Allergies Allergy Verified 02/07/18 11:40 History of Present Illness: this 47 years old male with alcohol and heroin abused,mmtp 65 mgs/day,last medicated today, multiple admissions in detox but keep relapsing seizure last 2016 hepatitis c hypertension positive ppd hyperlipidemia no significant period of sobriety bipolar disorder Exam Limitations: No Limitations - Ebola screening Have you traveled outside of the country in the last 21 days: No Have you had contact with anyone from an Ebola affected area: No Have you been sick,other than usual withdrawal symptoms: No Do you have a fever: No - Review of Systems Constitutional: No Symptoms Reported EENT: reports: No Symptoms Reported Respiratory: reports: No Symptoms reported Cardiac: reports: No Symptoms Reported GI: reports: No Symptoms Reported : reports: No Symptoms Reported Musculoskeletal: reports: No Symptoms Reported Integumentary: reports: No Symptoms Reported Neuro: reports: No Symptoms reported Endocrine: reports: No Symptoms Reported Hematology: reports: No Symptoms Reported Psychiatric: reports: No Sypmtoms Reported, other (bipolar disorder) Patient History - Patient Medical History Hx Anemia: No Hx Asthma: No Hx Chronic Obstructive Pulmonary Disease (COPD): No Hx Cancer: No Hx Cardiac Disorders: No Hx Congestive Heart Failure: No Hx Hypertension: Yes Hx Hypercholesterolemia: Yes (ON MEDS) Hx Pacemaker: No HX Cerebrovascular Accident: No Hx Seizures: Yes (drug related - last episode was a year ago) Hx Dementia: No Hx Diabetes: No Hx Gastrointestinal Disorders: No Hx Liver Disease: Yes (TX'ED) Hx Genitourinary Disorders: No Hx Sexually Transmitted Disorders: Yes (syphilis in 1988) Hx Renal Disease (ESRD): No Hx Thyroid Disease: No Hx Human Immunodeficiency Virus (HIV): No (last 09/26 negative) Hx Hepatitis C: Yes (TX'ED) Hx Depression: No Hx Suicide Attempt: No Hx Bipolar Disorder: Yes Hx Schizophrenia: No Other Medical History: no suicidal,no homicidal - Patient Surgical History Past Surgical History: No Hx Neurologic Surgery: No Hx Cataract Extraction: No Hx Cardiac Surgery: No Hx Lung Surgery: No Hx Breast Surgery: No Hx Breast Biopsy: No Hx Abdominal Surgery: No Hx Appendectomy: No Hx Cholecystectomy: No Hx Genitourinary Surgery: No Hx Section: No Hx Orthopedic Surgery: No Hx Hysterectomy: No Anesthesia Reaction: No - PPD History Previous Implant?: Yes Documented Results: Positive w/o proof Results: NEG CXR 11/23/16 PPD to be Administered?: No - Smoking Cessation Smoking history: Current every day smoker Have you smoked in the past 12 months: Yes Aproximately how many cigarettes per day: 10 Cigars Per Day: 0 Hx Chewing Tobacco Use: No Initiated information on smoking cessation: Yes 'Breaking Loose' booklet given: 02/07/18 - Substance & Tx. History Hx Alcohol Use: Yes Hx Substance Use: Yes Substance Use Type: Alcohol, Tranquilizers Hx Substance Use Treatment: Yes ([facility] 12/10/17 to 12/14/17) - Substances Abused Alcohol-vodka Route: Oral Frequency: 3-6 times per week Amount used: 1-2 pts. Age of first use: 17 Date of Last Use: 02/07/18 Xanax Route: Oral Frequency: 1-3 times last 30 days Amount used: 4 mg. Age of first use: 47 Date of Last Use: 02/05/18 Family Disease History - Family Disease History Family Disease History: Other: Father (ALCOHOLISM,), Mother (HTN/ ALCOHOLISM) Admission Physical Exam [facility] - Vital Signs Vital Signs: Vital Signs - 24 hr 02/07/18 11:43 Temperature 97.3 F L Pulse Rate 92 H Respiratory 18 Rate Blood Pressure 142/99 - Physical General Appearance: Yes: Within Normal Limits, Anxious HEENTM: Yes: Normal ENT Inspection, HUMBERTO, Pharynx Normal Respiratory: Yes: Lungs Clear, Normal Breath Sounds, No Respiratory Distress Neck: Yes: Within Normal Limits, Supple, Trachea in good position Breast: Yes: Within Normal Limits Cardiology: Yes: Within Normal Limits, Regular Rhythm, Regular Rate, S1, S2 Abdominal: Yes: Within Normal Limits, Normal Bowel Sounds, Non Tender, Soft Genitourinary: Yes: Within Normal Limits Back: Yes: Within Normal Limits Musculoskeletal: Yes: Within Normal Limits Extremities: Yes: Within Normal Limits, Normal Capillary Refill, Normal Inspection, Normal Range of Motion Neurological: Yes: 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 VERIFY TOMORROW, AM. (4) Hepatitis C Current Visit: Yes Status: Chronic (5) Alcohol related seizure Current Visit: No Status: Chronic (6) HTN (hypertension) Current Visit: No Status: Chronic Qualifiers: Hypertension type: essential hypertension Qualified Code(s): I10 - Essential (primary) hypertension (7) Hyperlipidemia Current Visit: Yes Status: Chronic Qualifiers: Hyperlipidemia type: unspecified Qualified Code(s): E78.5 - Hyperlipidemia , unspecified (8) PPD positive Current Visit: Yes Status: Chronic Cleared for Admission S - Detox or Rehab Claeared for Rehab Admission: Yes (awaiting for alcohol level to go down below legally drunk) [facility] Breath Alcohol Content Breath Alcohol Content: 0.286 Urine Drug Screen - Results Drug Screen Negative: No Urine Drug Screen Results: BZO-Benzodiazepines, MTD-Methadone Inpatient Rehab Admission - Initial Determination Are CD services needed?: Yes Free of communicable disease: Yes Not in need of hospitalization: Yes - Rehab Admission Criteria Previous failed treatment: Yes Poor recovery environment: Yes Comorbidities: Yes Lacks judgement: No Patient is meeting Inpatient Rehab admission criteria:: Yes
[2018-02-07] MEDS ORDERED: hydrOXYzine PAMOATE 50 MG CAPSULE (FP) PO PRN (15:15)
[2018-02-07] MEDS ORDERED: guaiFENesin/D-METHORPHAN HB 10 ML UNIT-DOSE CUPS PO PRN (15:15)
[2018-02-07] MEDS ORDERED: MAG HYDROX/AL HYDROX/SIMETH 30 ML UNIT-DOSE CUP PO PRN (15:15)
[2018-02-07] MEDS ORDERED: MENTHOL/PHENOL 1 EACH UD MM PRN (15:15)
[2018-02-07] MEDS ORDERED: MAGNESIUM CITRATE 300 ML BOTTLE PO PRN (15:15)
[2018-02-07] MEDS ORDERED: P-EPHED 60MG/TRIPROLIDI 2.5MG TABLET PO PRN (15:15)
[2018-02-07] MEDS ORDERED: LOPERAMIDE HCL 2 MG CAPSULE PO PRN (15:15)
[2018-02-07] MEDS ORDERED: ACETAMINOPHEN 325 MG TABLET (FP) PO PRN (15:15)
[2018-02-07] MEDS ORDERED: MAGNESIUM HYDROX 2400MG/30ML ORAL SUSPENSION 30 ML CUP PO PRN (15:15)
[2018-02-07] MEDS ORDERED: cloNIDine HCL 0.1 MG TABLET PO ONE (20:46)
--- NOTE | 2018-02-07 21:10 | PN ---
S Progress Note Note: Psychiatric nurse practitioner note: Call received by RN stating patient is requesting seroquel 100mg qhs. Chart reviewed and noted most recent EKG was completed on 01/10. Results of EKG: Prolong QT. Due to results of EKG, it is contraindicated to prescribe seroquel due to patient already being a risk factor for a prolong QT. In addition patient is currently on methadone which can also increase the QT interval. Seroquel will not be ordered. Will order Belsomra 5mg qhs prn.
[2018-02-07] MEDS: THIAMINE HCL 100 MG TABLET (FP) PO SCH (21:57)
[2018-02-07] MEDS: SUVOREXANT 5 MG TABLET PO PRN (21:58)
[2018-02-07] MEDS ORDERED: MELATONIN 5 MG TABLETS PO PRN (22:00)
[2018-02-08] MEDS ORDERED: METHADONE HCL 40 MG DISPERSABLE TABLET ONE (04:23)
[2018-02-08] MEDS ORDERED: METHADONE HCL 10 MG TABLET ONE (04:23)
[2018-02-08] MEDS ORDERED: METHADONE HCL 5 MG TABLET ONE (04:23)
[2018-02-08] MEDS ORDERED: METHADONE 40 MG, METHADONE 20 MG, METHADONE 5 MG PO SCH (06:00)
[2018-02-08] MEDS ORDERED: METHADONE HCL 10 MG TABLET PO SCH (06:00)
[2018-02-08] MEDS ORDERED: METHADONE HCL 40 MG DISPERSABLE TABLET PO SCH (09:45)
--- NOTE | 2018-02-08 09:49 | PN ---
[facility]HS Progress Note Note: Pt seen for prolonged QT interval- pt on methadone 65mg/day. QTc-500. Will decrease dose of methadone to 60mg/day and d/c vistaril.
--- NOTE | 2018-02-08 10:19 | EKG ---
Test Reason : Blood Pressure : / mmHG Vent. Rate : 086 BPM Atrial Rate : 086 BPM P-R Int : 144 ms QRS Dur : 088 ms QT Int : 418 ms P-R-T Axes : 067 -22 -03 degrees QTc Int : 500 ms NORMAL SINUS RHYTHM VOLTAGE CRITERIA FOR LEFT VENTRICULAR HYPERTROPHY PROLONGED QT ABNORMAL ECG WHEN COMPARED WITH ECG OF 10-JAN-2018 13:04, T WAVE AMPLITUDE HAS INCREASED IN ANTEROLATERAL LEADS Confirmed by MORGAN ROGER MD ([id number]) on 02/08/2018 10:18:59 AM Referred By: Confirmed By:MORGAN ROGER MD
[2018-02-08 10:30] LABS: HEMATOCRIT 40.5 % (35.4-49); MCHC 32.2 g/dl (32.0-35.9); MEAN CELL VOLUME 99.2 fl (80-96); MEAN PLT VOLUME 9.2 fl (7.5-11.1); PLATELET COUNT 161 K/MM3 (134-434); RBC 4.08 M/mm3 (4.00-5.60); RDW 14.6 % (11.9-15.9)
[2018-02-08] MEDS: PRENATAL VITAMINS W/ FOLIC ACID TABLET (FP) PO SCH (10:42)
[2018-02-08] MEDS: LISINOPRIL 20 MG TABLET (FP) PO SCH (10:42)
[2018-02-08 11:20] LABS: ALBUMIN 3.6 g/dl (3.4-5.0); ALK PHOS 118 U/L (45-117); ANION GAP 8 MMOL/L (8-16); BILIRUBIN,TOTAL 0.7 mg/dL (0.2-1); BLOOD UREA NITROGEN 12 mg/dL (7-18); CALCIUM 8.5 mg/dL (8.5-10.1); CHLORIDE 100 mmol/L (98-107); CO2 30 mmol/L (21-32); CREATININE 0.8 mg/dL (0.55-1.3); GLUCOSE,RANDOM 88 mg/dL (74-106); POTASSIUM 3.8 mmol/L (3.5-5.1); SGOT/AST 169 U/L (15-37); SGPT/ALT 248 U/L (13-61); SODIUM 139 mmol/L (136-145); TOT PROT 7.6 g/dl (6.4-8.2)
[2018-02-08] MEDS ORDERED: FLU VACCINE QUAD 60 MCG/0.5 ML (MDV 18-19) IM ONE (12:00)
--- NOTE | 2018-02-08 13:28 | HP ---
Psychiatrist Admission - Data Date of interview: 02/08/18 Admission source: [facility] Identifying data: This is one of the multiple admissions to [facility] for this 47 years old single H father of 5 ,resides with family,supported by [place]. Medical History: Significant for Hep C,HTN,Hyperlipidemia. Psychiatric History: Patient started to see a psychiatrist a few years ago while being treated in one of the inpatient rehab program.He was dx was dx with Mood diorder,then panic disorder.No psychiatric hospitalizations,a few ER visits reported.No history of suicidal attempts reported.No psychiatric OPD care for years. Physical/Sexual Abuse/Trauma History: Patient denies. Vital Signs: Vital Signs - 24 hr 02/08/18 02/08/18 02/08/18 00:30 03:30 07:27 Temperature 98.3 F Pulse Rate 60 Respiratory 20 20 18 Rate Blood Pressure 155/90 02/08/18 10:00 Temperature Pulse Rate 77 Respiratory Rate Blood Pressure 148/107 H Allergies/Adverse Reactions: Allergies Allergy/AdvReac Type Severity Reaction Status Date / Time Fish Containing Products Allergy Severe Swelling Verified 02/07/18 11:40 No Known Drug Allergies Allergy Verified 02/07/18 11:40 Date of last physical exam: 02/07/18 Concur with the findings of this exam: Yes - Substance Abuse/Tx History Hx Alcohol Use: Yes (drinking since 17 yo,hard liquors ,2-3 pints daily) Hx Substance Use: Yes (stopped marijuana,cocaine since 7 yo,MMTPP (60 mg )) Substance Use Type: Alcohol, Cocaine, Heroin, Marijuana Hx Substance Use Treatment: Yes (completed alf in 2000,longest abstinence 7 years) Mental Status Exam - Mental Status Exam Alert and Oriented to: Time, Place, Person Cognitive Function: Grossly Intact Patient Appearance: Well Groomed Mood: Euthymic Affect: Appropriate, Normal Range Patient Behavior: Cooperative Speech Pattern: Clear Voice Loudness: Normal Thought Process: Goal Oriented Thought Disorder: Not Present Hallucinations: Denies Suicidal Ideation: Denies Homicidal Ideation: Denies Insight/Judgement: Fair Sleep: Fair Appetite: Good Muscle strength/Tone: Normal Gait/Station: Normal Psychiatric Findings - Problem List ([place] 1, 2,3) (1) Alcohol dependence Current Visit: Yes Status: Chronic (2) Hepatitis C Current Visit: Yes Status: Chronic (3) Sedative dependence Current Visit: Yes Status: Chronic (4) Cellulitis Current Visit: Yes Status: Resolved Qualifiers: Site of cellulitis: extremity Site of cellulitis of extremity: upper extremity Laterality: left Qualified Code(s): L03.114 - Cellulitis of left upper limb Comment: Left Forearm. (5) Elevated LFTs Current Visit: Yes Status: Chronic (6) Substance induced mood disorder Current Visit: Yes Status: Chronic (7) Hyperlipidemia Current Visit: No Status: Chronic Qualifiers: Hyperlipidemia type: unspecified Qualified Code(s): E78.5 - Hyperlipidemia , unspecified (8) Methadone maintenance therapy patient Current Visit: Yes Status: Chronic Comment: LAST DOSE (45 MG): 01/04/16. VERIFY TOMORROW, AM. (9) Nicotine dependence Current Visit: Yes Status: Chronic Qualifiers: Nicotine product type: cigarettes Substance use status: in withdrawal Qualified Code(s): F17.213 - Nicotine dependence, cigarettes, with withdrawal (10) PPD positive Current Visit: Yes Status: Chronic (11) Substance induced mood disorder Current Visit: Yes Status: Chronic - Initial Treatment Plan Initial Treatment Plan: Melatonin 10 mg po hs.Consider antidepressants, anxiolytics if needed.Will monitor progress.
[2018-02-08 21:28] LABS: URINE APPEARANCE CLEAR; URINE BILIRUBIN NEGATIVE (<2.0 mg/dL); URINE COLOR LTYELLOW; URINE GLUCOSE (UA) NEGATIVE (NEGATIVE); URINE KETONE NEGATIVE (NEGATIVE); URINE LEUK ESTERASE NEGATIVE (NEGATIVE); URINE NITRITE NEGATIVE (NEGATIVE); URINE PROTEIN NEGATIVE (NEGATIVE); URINE UROBILINOGEN NEGATIVE mg/dL (0.2-1.0)
[2018-02-08] MEDS: THIAMINE HCL 100 MG TABLET (FP) PO SCH (22:10)
[2018-02-08] MEDS: MELATONIN 5 MG TABLETS PO PRN (22:11)
[2018-02-09] MEDS ORDERED: METHADONE HCL 10 MG TABLET ONE (04:25)
[2018-02-09] MEDS ORDERED: METHADONE HCL 40 MG DISPERSABLE TABLET ONE (04:26)
[2018-02-09] MEDS: METHADONE 40 MG, METHADONE 20 MG PO SCH (06:13)
[2018-02-09] MEDS: PRENATAL VITAMINS W/ FOLIC ACID TABLET (FP) PO SCH (09:06)
[2018-02-09] MEDS: LISINOPRIL 20 MG TABLET (FP) PO SCH (09:06)
--- NOTE | 2018-02-09 09:21 | PN ---
S Progress Note Note: TC from RN - BP 157/103 - noted BP has been elevated last several days (155/90 ; 148/107)- already on lisinopril, will add HCTZ and monitor ongoing.
[2018-02-09] MEDS: HYDROCHLOROTHIAZIDE 25 MG TABLET (FP) PO SCH (10:23)
[2018-02-09 12:26] LABS: RPR REACTIVE 1:1 (NONREACTIVE)
[2018-02-09 12:27] LABS: TREPONEMA ANTIBODY PREVIOUSLY REACTIVE (NONREACTIVE)
--- NOTE | 2018-02-09 15:25 | PN ---
S Progress Note Note: TC from RN - +RPR titre and Ab results, Laboratory Last Values WBC 5.0 K/mm3 (4.0-10.0) 02/08/18 07:00 RBC 4.08 M/mm3 (4.00-5.60) 02/08/18 07:00 Hgb 13.0 GM/dL (11.7-16.9) 02/08/18 07:00 Hct 40.5 % (35.4-49) 02/08/18 07:00 MCV 99.2 fl (80-96) H 02/08/18 07:00 MCH 32.0 pg (25.7-33.7) 02/08/18 07:00 MCHC 32.2 g/dl (32.0-35.9) 02/08/18 07:00 RDW 14.6 % (11.9-15.9) 02/08/18 07:00 Plt Count 161 K/MM3 (134-434) 02/08/18 07:00 MPV 9.2 fl (7.5-11.1) 02/08/18 07:00 Sodium 139 mmol/L (136-145) 02/08/18 07:00 Potassium 3.8 mmol/L (3.5-5.1) 02/08/18 07:00 Chloride 100 mmol/L (98-107) 02/08/18 07:00 Carbon Dioxide 30 mmol/L (21-32) 02/08/18 07:00 Anion Gap 8 MMOL/L (8-16) 02/08/18 07:00 BUN 12 mg/dL (7-18) 02/08/18 07:00 Creatinine 0.8 mg/dL (0.55-1.3) 02/08/18 07:00 Creat Clearance w eGFR > 60 (>60) 02/08/18 07:00 Random Glucose 88 mg/dL (74-106) 02/08/18 07:00 Calcium 8.5 mg/dL (8.5-10.1) 02/08/18 07:00 Total Bilirubin 0.7 mg/dL (0.2-1) 02/08/18 07:00 AST 169 U/L (15-37) H 02/08/18 07:00 ALT 248 U/L (13-61) H 02/08/18 07:00 Alkaline Phosphatase 118 U/L (45-117) H 02/08/18 07:00 Total Protein 7.6 g/dl (6.4-8.2) 02/08/18 07:00 Albumin 3.6 g/dl (3.4-5.0) 02/08/18 07:00 Urine Color Ltyellow 02/08/18 09:48 Urine Appearance Clear 02/08/18 09:48 Urine pH 6.0 (5.0-8.0) 02/08/18 09:48 Ur Specific [place] 1.010 (1.010-1.035) 02/08/18 09:48 Urine Protein Negative (NEGATIVE) 02/08/18 09:48 Urine Glucose (UA) Negative (NEGATIVE) 02/08/18 09:48 Urine Ketones Negative (NEGATIVE) 02/08/18 09:48 Urine Blood Negative (NEGATIVE) 02/08/18 09:48 Urine Nitrite Negative (NEGATIVE) 02/08/18 09:48 Urine Bilirubin Negative (<2.0 mg/dL) 02/08/18 09:48 Urine Urobilinogen Negative mg/dL (0.2-1.0) 02/08/18 09:48 Ur Leukocyte Esterase Negative (NEGATIVE) 02/08/18 09:48 RPR Titer Reactive 1:1 (NONREACTIVE) H 02/08/18 07:00 T.pallidum Ab (MHA) Previously reactive (NONREACTIVE) 02/08/18 07:00 Pt endorsed prior hx of syphillis and subsequent treatment in 1988 Denies any new symptoms
[2018-02-09] MEDS: MELATONIN 5 MG TABLETS PO PRN (22:01)
[2018-02-09] MEDS: SUVOREXANT 5 MG TABLET PO PRN (22:01)
[2018-02-09] MEDS: THIAMINE HCL 100 MG TABLET (FP) PO SCH (22:02)
[2018-02-09] MEDS ORDERED: cloNIDine HCL 0.1 MG TABLET PO ONE (22:11)
[2018-02-10] MEDS ORDERED: METHADONE HCL 10 MG TABLET ONE (02:23)
[2018-02-10] MEDS ORDERED: METHADONE HCL 40 MG DISPERSABLE TABLET ONE (02:23)
[2018-02-10] MEDS: METHADONE 40 MG, METHADONE 20 MG PO SCH (05:59)
[2018-02-10] MEDS: PRENATAL VITAMINS W/ FOLIC ACID TABLET (FP) PO SCH (10:11)
[2018-02-10] MEDS: HYDROCHLOROTHIAZIDE 25 MG TABLET (FP) PO SCH (10:11)
[2018-02-10] MEDS: LISINOPRIL 20 MG TABLET (FP) PO SCH (10:11)
[2018-02-10] MEDS: THIAMINE HCL 100 MG TABLET (FP) PO SCH (21:54)
[2018-02-10] MEDS: SUVOREXANT 5 MG TABLET PO PRN (21:55)
[2018-02-10] MEDS: MELATONIN 5 MG TABLETS PO PRN (21:56)
[2018-02-10] MEDS ORDERED: SUVOREXANT 5 MG TABLET PO PRN (22:00)
[2018-02-11] MEDS ORDERED: METHADONE HCL 40 MG DISPERSABLE TABLET ONE (03:13)
[2018-02-11] MEDS ORDERED: METHADONE HCL 10 MG TABLET ONE (03:13)
[2018-02-11] MEDS: METHADONE 40 MG, METHADONE 20 MG PO SCH (06:13)
[2018-02-11] MEDS: PRENATAL VITAMINS W/ FOLIC ACID TABLET (FP) PO SCH (11:07)
[2018-02-11] MEDS: HYDROCHLOROTHIAZIDE 25 MG TABLET (FP) PO SCH (11:07)
[2018-02-11] MEDS: LISINOPRIL 20 MG TABLET (FP) PO SCH (11:08)
[2018-02-11] MEDS: THIAMINE HCL 100 MG TABLET (FP) PO SCH (21:53)
[2018-02-11] MEDS: IBUPROFEN 400 MG TABLET (FP) PO PRN (21:54)
[2018-02-12] MEDS ORDERED: METHADONE HCL 40 MG DISPERSABLE TABLET ONE (02:47)
[2018-02-12] MEDS ORDERED: METHADONE HCL 10 MG TABLET ONE (02:47)
[2018-02-12] MEDS: METHADONE 40 MG, METHADONE 20 MG PO SCH (06:07)
[2018-02-12] MEDS: HYDROCHLOROTHIAZIDE 25 MG TABLET (FP) PO SCH (10:34)
[2018-02-12] MEDS: LISINOPRIL 20 MG TABLET (FP) PO SCH (10:34)
[2018-02-12] MEDS: PRENATAL VITAMINS W/ FOLIC ACID TABLET (FP) PO SCH (10:34)
[2018-02-12] MEDS: THIAMINE HCL 100 MG TABLET (FP) PO SCH (22:00)
[2018-02-12] MEDS: MELATONIN 5 MG TABLETS PO PRN (22:01)
[2018-02-12] MEDS: IBUPROFEN 400 MG TABLET (FP) PO PRN (23:40)
[2018-02-13] MEDS ORDERED: METHADONE HCL 10 MG TABLET ONE (02:46)
[2018-02-13] MEDS ORDERED: METHADONE HCL 40 MG DISPERSABLE TABLET ONE (02:47)
[2018-02-13] MEDS: METHADONE 40 MG, METHADONE 20 MG PO SCH (06:02)
[2018-02-13] MEDS: LISINOPRIL 20 MG TABLET (FP) PO SCH (11:15)
[2018-02-13] MEDS: PRENATAL VITAMINS W/ FOLIC ACID TABLET (FP) PO SCH (11:15)
[2018-02-13] MEDS: HYDROCHLOROTHIAZIDE 25 MG TABLET (FP) PO SCH (11:15)
[2018-02-13] MEDS: THIAMINE HCL 100 MG TABLET (FP) PO SCH (21:46)
[2018-02-13] MEDS: MELATONIN 5 MG TABLETS PO PRN (21:48)
[2018-02-13] MEDS: IBUPROFEN 400 MG TABLET (FP) PO PRN (21:48)
[2018-02-13] MEDS: SUVOREXANT 5 MG TABLET PO PRN (21:48)
[2018-02-13] MEDS ORDERED: SUVOREXANT 10 MG TABLET PO PRN (22:00)
[2018-02-14] MEDS ORDERED: METHADONE HCL 40 MG DISPERSABLE TABLET ONE (04:57)
[2018-02-14] MEDS ORDERED: METHADONE HCL 10 MG TABLET ONE (04:57)
[2018-02-14] MEDS: METHADONE 40 MG, METHADONE 20 MG PO SCH (06:06)
[2018-02-14] MEDS: PRENATAL VITAMINS W/ FOLIC ACID TABLET (FP) PO SCH (10:21)
[2018-02-14] MEDS: HYDROCHLOROTHIAZIDE 25 MG TABLET (FP) PO SCH (10:21)
[2018-02-14] MEDS: LISINOPRIL 20 MG TABLET (FP) PO SCH (10:21)
[2018-02-14] MEDS: THIAMINE HCL 100 MG TABLET (FP) PO SCH (21:31)
[2018-02-14] MEDS: MELATONIN 5 MG TABLETS PO PRN (21:32)
[2018-02-14] MEDS: SUVOREXANT 5 MG TABLET PO PRN (21:32)
[2018-02-15] MEDS: METHADONE 40 MG, METHADONE 20 MG PO SCH (06:06)
[2018-02-15] MEDS ORDERED: METHADONE HCL 10 MG TABLET ONE (06:06)
[2018-02-15] MEDS ORDERED: METHADONE HCL 40 MG DISPERSABLE TABLET ONE (06:06)
[2018-02-15] MEDS: LISINOPRIL 20 MG TABLET (FP) PO SCH (10:37)
[2018-02-15] MEDS: HYDROCHLOROTHIAZIDE 25 MG TABLET (FP) PO SCH (10:37)
[2018-02-15] MEDS: PRENATAL VITAMINS W/ FOLIC ACID TABLET (FP) PO SCH (10:37)
[2018-02-15] MEDS: THIAMINE HCL 100 MG TABLET (FP) PO SCH (22:03)
[2018-02-15] MEDS: SUVOREXANT 5 MG TABLET PO PRN (22:03)
[2018-02-15] MEDS: MELATONIN 5 MG TABLETS PO PRN (22:03)
[2018-02-16] MEDS ORDERED: METHADONE HCL 40 MG DISPERSABLE TABLET ONE (04:20)
[2018-02-16] MEDS ORDERED: METHADONE HCL 10 MG TABLET ONE (04:20)
[2018-02-16] MEDS ORDERED: METHADONE HCL 10 MG TABLET PO SCH (06:00)
[2018-02-16] MEDS: METHADONE 40 MG, METHADONE 20 MG PO SCH (06:00)
[2018-02-16] MEDS: LISINOPRIL 20 MG TABLET (FP) PO SCH (10:16)
[2018-02-16] MEDS: HYDROCHLOROTHIAZIDE 25 MG TABLET (FP) PO SCH (10:16)
[2018-02-16] MEDS: PRENATAL VITAMINS W/ FOLIC ACID TABLET (FP) PO SCH (10:17)
--- NOTE | 2018-02-16 15:51 | PN ---
[facility] Progress Note Note: Psychiatrty Attending's note : Requested to enter order for belsomra. Chart reviewed. Medication verified. Well tolerated. No report of adverse events. Belsomra 5 mg po hs prn. Re-ordered.
[2018-02-16] MEDS: THIAMINE HCL 100 MG TABLET (FP) PO SCH (22:28)
[2018-02-16] MEDS: SUVOREXANT 5 MG TABLET PO PRN (22:29)
[2018-02-17] MEDS ORDERED: METHADONE HCL 40 MG DISPERSABLE TABLET ONE (03:34)
[2018-02-17] MEDS ORDERED: METHADONE HCL 10 MG TABLET ONE (03:34)
[2018-02-17] MEDS: METHADONE 40 MG, METHADONE 20 MG PO SCH (06:12)
[2018-02-17] MEDS: HYDROCHLOROTHIAZIDE 25 MG TABLET (FP) PO SCH (10:42)
[2018-02-17] MEDS: PRENATAL VITAMINS W/ FOLIC ACID TABLET (FP) PO SCH (10:42)
[2018-02-17] MEDS: LISINOPRIL 20 MG TABLET (FP) PO SCH (10:42)
[2018-02-17] MEDS: THIAMINE HCL 100 MG TABLET (FP) PO SCH (22:06)
[2018-02-17] MEDS: SUVOREXANT 5 MG TABLET PO PRN (22:07)
[2018-02-18] MEDS ORDERED: METHADONE HCL 10 MG TABLET ONE (02:56)
[2018-02-18] MEDS ORDERED: METHADONE HCL 40 MG DISPERSABLE TABLET ONE (02:56)
[2018-02-18] MEDS: METHADONE 40 MG, METHADONE 20 MG PO SCH (06:32)
[2018-02-18] MEDS: HYDROCHLOROTHIAZIDE 25 MG TABLET (FP) PO SCH (10:30)
[2018-02-18] MEDS: PRENATAL VITAMINS W/ FOLIC ACID TABLET (FP) PO SCH (10:30)
[2018-02-18] MEDS: LISINOPRIL 20 MG TABLET (FP) PO SCH (10:30)
--- NOTE | 2018-02-18 16:59 | PN ---
Psychiatric Progress Note Vital Signs: Vital Signs Period Temp Pulse Resp BP Sys/Garcia Pulse Ox Last 24 Hr 98.4 F 81-87 18-20 127-141/86-102 Date of Session: 02/18/18 Chief Complaint:: Discharge visit Current Medications: Active Medications Generic Name Dose Route Start Last Admin Trade Name Freq PRN Reason Stop Dose Admin Acetaminophen 650 mg 02/07/18 15:15 Tylenol - PO Q4H PRN FEVER Al Hydroxide/Mg Hydroxide 30 ml 02/07/18 15:15 Mylanta Oral Suspension - PO Q6H PRN DYSPEPSIA Eucalyptus/Menthol/Phenol/Sorbitol 1 each 02/07/18 15:15 Cepastat Lozenge - MM Q4H PRN SORE THROAT Guaifenesin 10 ml 02/07/18 15:15 Robitussin Dm - PO Q6H PRN COUGH Hydrochlorothiazide 25 mg 02/09/18 10:00 02/18/18 10:30 Hctz - PO 25 mg DAILY SALOME Administration Ibuprofen 400 mg 02/07/18 15:15 02/13/18 21:48 Motrin - PO 400 mg Q6H PRN Administration Pain level 4-6 Lisinopril 20 mg 02/08/18 10:00 02/18/18 10:30 Prinivil PO 20 mg DAILY SALOME Administration Loperamide HCl 4 mg 02/07/18 15:15 Imodium - PO Q6H PRN DIARRHEA Magnesium Citrate 300 ml 02/07/18 15:15 Citroma - PO Q48H PRN CONSTIPATION Magnesium Hydroxide 30 ml 02/07/18 15:15 Milk Of Magnesia - PO DAILY PRN CONSTIPATION Methadone HCl 40 mg/ Methadone 60 mg 02/16/18 06:00 02/18/18 06:32 HCl 20 mg PO 02/22/18 05:59 60 mg DAILY@0600 SALOME Administration Multivit/Folic Acid/Iron 1 tab 02/08/18 10:00 02/18/18 10:30 Vitamins (Sjr) - PO 1 tab DAILY SALOME Administration Pseudoephedrine/Triprolidine 1 combo 02/07/18 15:15 Actifed - PO TID PRN NASAL CONGESTION Suvorexant 5 mg 02/16/18 22:00 02/17/18 22:07 Belsomra PO 5 mg HS PRN Administration INSOMNIA Thiamine HCl 100 mg 02/07/18 22:00 02/17/18 22:06 Vitamin B1 - PO 100 mg HS SALOME Administration
--- NOTE | 2018-02-18 17:06 | PN ---
S Progress Note Note: Psychiatry Attending's note : Abnormal EKG. Prolonged QTc. Medical consult. Discussed with nurse on duty. Medical clearance needed prior to discharge.
[2018-02-18] MEDS: SUVOREXANT 5 MG TABLET PO PRN (22:07)
[2018-02-18] MEDS: THIAMINE HCL 100 MG TABLET (FP) PO SCH (22:07)
[2018-02-19] MEDS ORDERED: METHADONE HCL 10 MG TABLET ONE (04:17)
[2018-02-19] MEDS ORDERED: METHADONE HCL 40 MG DISPERSABLE TABLET ONE (04:17)
[2018-02-19] MEDS: METHADONE 40 MG, METHADONE 20 MG PO SCH (06:02)
[2018-02-19 07:58] VITALS: BP 139/92; PULSE 79; TEMP 98.2
[2018-02-19] MEDS: PRENATAL VITAMINS W/ FOLIC ACID TABLET (FP) PO SCH (09:30)
[2018-02-19] MEDS: HYDROCHLOROTHIAZIDE 25 MG TABLET (FP) PO SCH (09:30)
[2018-02-19] MEDS: LISINOPRIL 20 MG TABLET (FP) PO SCH (09:30)
--- NOTE | 2018-02-19 10:14 | PN ---
Psychiatric Progress Note Vital Signs: Vital Signs Period Temp Pulse Resp BP Sys/Garcia Pulse Ox Last 24 Hr 98.2 F 79 18-18 139/92 Date of Session: 02/19/18 Chief Complaint:: "Discharge" HPI: Patient admitted to for alcohol and benzodiazepine dependence. ROS: Significant for Hep C,HTN,Hyperlipidemia. Current Medications: Active Medications Generic Name Dose Route Start Last Admin Trade Name Freq PRN Reason Stop Dose Admin Acetaminophen 650 mg 02/07/18 15:15 Tylenol - PO Q4H PRN FEVER Al Hydroxide/Mg Hydroxide 30 ml 02/07/18 15:15 Mylanta Oral Suspension - PO Q6H PRN DYSPEPSIA Eucalyptus/Menthol/Phenol/Sorbitol 1 each 02/07/18 15:15 Cepastat Lozenge - MM Q4H PRN SORE THROAT Guaifenesin 10 ml 02/07/18 15:15 Robitussin Dm - PO Q6H PRN COUGH Hydrochlorothiazide 25 mg 02/09/18 10:00 02/19/18 09:30 Hctz - PO 25 mg DAILY SALOME Administration Ibuprofen 400 mg 02/07/18 15:15 02/13/18 21:48 Motrin - PO 400 mg Q6H PRN Administration Pain level 4-6 Lisinopril 20 mg 02/08/18 10:00 02/19/18 09:30 Prinivil PO 20 mg DAILY SALOME Administration Loperamide HCl 4 mg 02/07/18 15:15 Imodium - PO Q6H PRN DIARRHEA Magnesium Citrate 300 ml 02/07/18 15:15 Citroma - PO Q48H PRN CONSTIPATION Magnesium Hydroxide 30 ml 02/07/18 15:15 Milk Of Magnesia - PO DAILY PRN CONSTIPATION Methadone HCl 40 mg/ Methadone 60 mg 02/16/18 06:00 02/19/18 06:02 HCl 20 mg PO 02/22/18 05:59 60 mg DAILY@0600 SALOME Administration Multivit/Folic Acid/Iron 1 tab 02/08/18 10:00 02/19/18 09:30 Vitamins (Sjr) - PO 1 tab DAILY SALOME Administration Pseudoephedrine/Triprolidine 1 combo 02/07/18 15:15 Actifed - PO TID PRN NASAL CONGESTION Suvorexant 5 mg 02/16/18 22:00 02/18/18 22:07 Belsomra PO 5 mg HS PRN Administration INSOMNIA Thiamine HCl 100 mg 02/07/18 22:00 02/18/18 22:07 Vitamin B1 - PO 100 mg HS SALOME Administration Medication(s) Change(s): No. Current Side Effect: No Lab tests ordered: No Lab tests reviewed: Yes Provider note:: Patient able to complete rehab on 02/19/18. Patient has met his treatment goals and will continue to address additional issues at the [facility] methadone maintenance and outpatient clinic program. Through participation of this program patient has learned the importance of changing his behavior and the need for better structure in his life. Patient states he realizes the negative effect of drug use and is now focused on remaining abstinent from substance abuse. Patient medically cleared by the medical team this morning and was recommended to follow up with his primary care physican concerning his prolonged QT interval: QTc- 500. Patient is stable for discharge on 02/19/18. Total face to face time:: 35 Mental Status Exam - Mental Status Exam Alert and Oriented to: Time, Place, Person Cognitive Function: Good Patient Appearance: Well Groomed Mood: Hopeful Affect: Appropriate Patient Behavior: Appropriate, Cooperative Speech Pattern: Clear, Appropriate Voice Loudness: Normal Thought Process: Intact, Goal Oriented Thought Disorder: Not Present Hallucinations: Denies Suicidal Ideation: Denies Homicidal Ideation: Denies Insight/Judgement: Good Sleep: Well Appetite: Good Muscle strength/Tone: Normal Gait/Station: Normal Psychiatric Treatment Plan - Problem List (2) Methadone maintenance therapy patient Comment: LAST DOSE (45 MG): 01/04/16. VERIFY TOMORROW, AM. (3) Nicotine dependence Qualifiers: Nicotine product type: cigarettes Substance use status: in withdrawal Qualified Code(s): F17.213 - Nicotine dependence, cigarettes, with withdrawal
--- NOTE | 2018-02-19 10:24 | PN ---
[facility] Progress Note Note: Pt going home today. Pt on methadone, routine EKG at admission showed a prolonged QT interval: QTc- 500. Methadone dose was lowered. d/w pt to follow up with PCP or methadone program to repeat EKG d/c diuretics and continue lisinopril: diuretics lower K which can affect QT interval If BP is not controlled pt can have PCP add Beta rebecca- can lower Qt interval d/w pt to eat more vegetables to increase mag and K level
== END 2018-02-19 10:30 | disposition home or self-care (01) | DRG 772 ==
LOC: YASAS 10:38 → Y5N 18:16
PROVIDERS: ADMIT Psychiatry & Neurology Psychiatry; ATTEND Psychiatry & Neurology Psychiatry
PROC: HZ42ZZZ Group Counseling for Substance Abuse Treatment, Cognitive-Behavioral (ICD-10-PCS; principal; 2018-02-07)
DX: F10.20 Alcohol dependence, uncomplicated (principal); F13.20 Sedative, hypnotic or anxiolytic dependence, uncomplicated; F11.20 Opioid dependence, uncomplicated; F17.210 Nicotine dependence, cigarettes, uncomplicated; F31.9 Bipolar disorder, unspecified; F19.24 Other psychoactive substance dependence with psychoactive substance-induced mood disorder; L03.114 Cellulitis of left upper limb; I10 Essential (primary) hypertension; E78.5 Hyperlipidemia, unspecified; B18.2 Chronic viral hepatitis C; R94.31 Abnormal electrocardiogram [ECG] [EKG]; R76.11 Nonspecific reaction to tuberculin skin test without active tuberculosis; Z86.69 Personal history of other diseases of the nervous system and sense organs; Z86.19 Personal history of other infectious and parasitic diseases
CPT/HCPCS: 36415; 71046-TC-FY; 80053; 81003; 85027; 86593; 86780; 93005; 93010; J0735

== ENCOUNTER 2018-06-04 13:22 | Inpatient (IN) | payer OTHER ==
[2018-06-04 17:39] VITALS: BMI 27.1
--- NOTE | 2018-06-04 18:17 | HP ---
CIWA Score Nausea/Vomitin-Mild Nausea/No Vomiting Muscle Tremors: 2 Anxiety: 3 Agitation: 1-Slight > Activity Paroxysmal Sweats: 2 Orientation: 2-Disoriented Date<2 days Tacttile Disturbances: 1-Very Mild Itch/Numbness Auditory Disturbances: 1-Very Mild Visual Disturbances: 1-Very Mild Sensitivity Headache: 1-Very Mild CIWA-Ar Total Score: 15 - Admission Criteria OASAS Guidelines: Admission for Medically Managed Detox: Requires at least one of the followin. CIWA greater than 12 2. Seizures within the past 24 hours 3. Delirium tremens within the past 24 hours 4. Hallucinations within the past 24 hours 5. Acute intervention needed for co occurring medical disorder 6. Acute intervention needed for co occurring psychiatric disorder 7. Severe withdrawal that cannot be handled at a lower level of care (continued vomiting, continued diarrhea, abnormal vital signs) requiring intravenous medication and/or fluids 8. Admission ROS [facility] Chief Complaint: WITHDRAWAL SYMPTOMS Allergies/Adverse Reactions: Allergies Allergy/AdvReac Type Severity Reaction Status Date / Time Fish Containing Products Allergy Severe Swelling Verified 02/07/18 11:40 No Known Drug Allergies Allergy Verified 02/07/18 11:40 History of Present Illness: 48 Y.O. MAN WITH AN EXTENSIVE HISTORY OF ALCOHOL DEPENDENCE IS HERE SEEKING DETOX. HE WAS LAST HERE FOR DETOX AND REHAB IN 01/2018. LONGEST PERIOD OF SOBRIETY HAS BEEN 8 YEARS. HE IS CURRENTLY ENROLLED AT [facility] TREATMENT PROGRAM FOR MMTP AND STATES HE WAS LAST MEDICATED ON 60MG OF METHADONE ON . Exam Limitations: No Limitations - Ebola screening Have you traveled outside of the country in the last 21 days: No Have you had contact with anyone from an Ebola affected area: No Have you been sick,other than usual withdrawal symptoms: No - Review of Systems Constitutional: Chills, Diaphoresis, Night Sweats, Changes in sleep EENT: reports: Tearing Respiratory: reports: No Symptoms reported Cardiac: reports: No Symptoms Reported GI: reports: No Symptoms Reported : reports: No Symptoms Reported Musculoskeletal: reports: No Symptoms Reported Integumentary: reports: No Symptoms Reported Neuro: reports: Seizure (LAST SEIZURE WAS 1 YEAR AGO-ETOH INDUCED) Endocrine: reports: No Symptoms Reported Hematology: reports: No Symptoms Reported Psychiatric: reports: Anxious Other Systems: Reviewed and Negative Patient History - Patient Medical History Hx Anemia: No Hx Asthma: No Hx Chronic Obstructive Pulmonary Disease (COPD): No Hx Cancer: No Hx Cardiac Disorders: No Hx Congestive Heart Failure: No Hx Hypertension: Yes Hx Hypercholesterolemia: Yes (ON MEDS) Hx Pacemaker: No HX Cerebrovascular Accident: No Hx Seizures: Yes (Pt states he had an etoh related 1 yr ago.) Hx Dementia: No Hx Diabetes: No Hx Gastrointestinal Disorders: No Hx Liver Disease: Yes (TX'ED) Hx Genitourinary Disorders: No Hx Sexually Transmitted Disorders: No Hx Renal Disease (ESRD): No Hx Thyroid Disease: No Hx Human Immunodeficiency Virus (HIV): No (last 09/26 negative) Hx Hepatitis C: Yes (TX'ED) Hx Depression: Yes Hx Suicide Attempt: No Hx Bipolar Disorder: Yes Hx Schizophrenia: No - Patient Surgical History Past Surgical History: No Hx Neurologic Surgery: No Hx Cataract Extraction: No Hx Cardiac Surgery: No Hx Lung Surgery: No Hx Breast Surgery: No Hx Breast Biopsy: No Hx Abdominal Surgery: No Hx Appendectomy: No Hx Cholecystectomy: No Hx Genitourinary Surgery: No Hx Section: No Hx Orthopedic Surgery: No Hx Hysterectomy: No Anesthesia Reaction: No - PPD History Previous Implant?: Yes Documented Results: Negative w/o proof Implanted On Prior [facility] Admission?: No PPD to be Administered?: Yes - Reproductive History Patient is a Female of Child Bearing Age (11 -55 yrs old): No - Smoking Cessation Smoking history: Current every day smoker Have you smoked in the past 12 months: Yes Aproximately how many cigarettes per day: 10 Cigars Per Day: 0 Hx Chewing Tobacco Use: No Initiated information on smoking cessation: Yes 'Breaking Loose' booklet given: 06/04/18 - Substance & Tx. History Hx Alcohol Use: Yes Hx Substance Use: Yes (ENROLLED IN AN MMTP ) Substance Use Type: Alcohol Hx Substance Use Treatment: Yes (DETOX AND REHAB: 01/2018) - Substances Abused Alcohol Route: Oral Frequency: Daily Amount used: 3 pints vodka Age of first use: 21 Date of Last Use: 06/04/18 Family Disease History - Family Disease History Family Disease History: Other: Father (ALCOHOLISM,), Mother (HTN/ ALCOHOLISM) Admission Physical Exam [facility] - Vital Signs Vital Signs: Vital Signs - 24 hr 06/04/18 17:37 Temperature 98.7 F Pulse Rate 90 Respiratory 18 Rate Blood Pressure 143/95 - Physical General Appearance: Yes: Tremorous, Anxious HEENTM: Yes: Hearing grossly Normal, Normocephalic, Normal Voice Respiratory: Yes: Chest Non-Tender, Lungs Clear, Normal Breath Sounds Neck: Yes: No masses,lesions,Nodules, Trachea in good position Breast: Yes: Breast Exam Deferred Cardiology: Yes: Regular Rhythm, Regular Rate Abdominal: Yes: Normal Bowel Sounds, Non Tender, Flat, Soft Genitourinary: Yes: Other (NO COMPLAINTS REPORTED) Back: Yes: Normal Inspection Musculoskeletal: Yes: full range of Motion, Gait Steady, Pelvis Stable Extremities: Yes: Tremors Neurological: Yes: Alert, Normal Mood/Affect, Normal Response Integumentary: Yes: Normal Color, Dry, Warm Lymphatic: Yes: Within Normal Limits - Diagnostic (1) Alcohol dependence with uncomplicated intoxication Current Visit: Yes Status: Chronic (2) Opioid dependence on agonist therapy Current Visit: Yes Status: Chronic (3) HTN (hypertension) Current Visit: Yes Status: Chronic Qualifiers: Hypertension type: essential hypertension Qualified Code(s): I10 - Essential (primary) hypertension (4) Hyperlipidemia Current Visit: Yes Status: Chronic Qualifiers: Hyperlipidemia type: unspecified Qualified Code(s): E78.5 - Hyperlipidemia , unspecified (5) Nicotine dependence Current Visit: No Status: Chronic Qualifiers: Nicotine product type: cigarettes Substance use status: in withdrawal Qualified Code(s): F17.213 - Nicotine dependence, cigarettes, with withdrawal (6) History of seizures Current Visit: Yes Status: Acute Cleared for Admission [facility] - Detox or Rehab [facility] Level of Care: Medically Managed Detox Regimen/Protocol: Librium [facility] Breath Alcohol Content Breath Alcohol Content: 0.229 Urine Drug Screen - Results Drug Screen Negative: No Urine Drug Screen Results: BZO-Benzodiazepines, MTD-Methadone Inpatient Rehab Admission - Rehab Decision to Admit Inpatient rehab admission?: No
[2018-06-04] MEDS ORDERED: IBUPROFEN 400 MG TABLET (FP) PO PRN (18:29)
[2018-06-04] MEDS ORDERED: MAG HYDROX/AL HYDROX/SIMETH 30 ML UNIT-DOSE CUP PO PRN (18:29)
[2018-06-04] MEDS ORDERED: MAGNESIUM HYDROX 2400MG/30ML ORAL SUSPENSION 30 ML CUP PO PRN (18:29)
[2018-06-04] MEDS ORDERED: ACETAMINOPHEN 325 MG TABLET (FP) PO PRN ×2 (18:29)
[2018-06-04] MEDS ORDERED: ONDANSETRON *ODT* 4 MG TABLET SL PRN (18:29)
[2018-06-04] MEDS ORDERED: BISMUTH SUBSALICYLATE 524 MG/30 ML UD PO PRN (18:29)
[2018-06-04] MEDS ORDERED: METHOCARBAMOL 500 MG TABLET PO PRN (18:29)
[2018-06-04] MEDS ORDERED: MENTHOL/PHENOL 1 EACH UD MM PRN (18:29)
[2018-06-04] MEDS ORDERED: chlordiazePOXIDE HCL 25 MG CAPSULE PO PRN (18:29)
[2018-06-04] MEDS ORDERED: MAGNESIUM CITRATE 300 ML BOTTLE PO PRN (18:29)
[2018-06-04] MEDS ORDERED: chlordiazePOXIDE HCL 25 MG CAPSULE PO ONE (19:00)
[2018-06-04] MEDS: chlordiazePOXIDE HCL 25 MG CAPSULE PO SCH (22:23)
[2018-06-04] MEDS: THIAMINE HCL 100 MG TABLET (FP) PO SCH (22:23)
[2018-06-04] MEDS: MELATONIN 5 MG TABLETS PO PRN (22:23)
[2018-06-04] MEDS: hydrOXYzine PAMOATE 25 MG CAPSULE (FP) PO PRN (22:23)
[2018-06-05] MEDS: chlordiazePOXIDE HCL 25 MG CAPSULE PO SCH ×4 (05:41→22:24)
[2018-06-05] MEDS ORDERED: cloNIDine HCL 0.1 MG TABLET PO ONE (06:43)
--- NOTE | 2018-06-05 06:44 | PN ---
[facility] Progress Note Note: Patient's blood pressure is B/ P 164/109. Patient is asymptomatic Vital Signs Temperature 98.1 F 06/05/18 06:44 Pulse Rate 77 06/05/18 06:44 Respiratory Rate 18 06/05/18 06:44 Blood Pressure 164/109 H 06/05/18 06:44 O2 Sat by Pulse Oximetry (%) Action: Clonidine 0.1mg tablet oral ordered
[2018-06-05] MEDS ORDERED: METHADONE HCL 10 MG TABLET PO ONE (07:40)
[2018-06-05] MEDS ORDERED: METHADONE HCL 10 MG TABLET ONE (07:56)
[2018-06-05] MEDS ORDERED: METHADONE HCL 40 MG DISPERSABLE TABLET ONE (07:56)
[2018-06-05] MEDS ORDERED: METHADONE 40 MG, METHADONE 20 MG PO ONE (08:00)
--- NOTE | 2018-06-05 09:32 | EKG ---
Test Reason : Blood Pressure : / mmHG Vent. Rate : 075 BPM Atrial Rate : 075 BPM P-R Int : 140 ms QRS Dur : 090 ms QT Int : 444 ms P-R-T Axes : 051 -20 -25 degrees QTc Int : 495 ms NORMAL SINUS RHYTHM VOLTAGE CRITERIA FOR LEFT VENTRICULAR HYPERTROPHY PROLONGED QT ABNORMAL ECG WHEN COMPARED WITH ECG OF 07-FEB-2018 22:57, NONSPECIFIC T WAVE ABNORMALITY NOW EVIDENT IN ANTERIOR LEADS Confirmed by JUNIOR LOYD, RADHA ([id number]) on 06/05/2018 9:31:47 AM Referred By: Confirmed By:RADHA PACHECO MD
[2018-06-05] MEDS: HYDROCHLOROTHIAZIDE 25 MG TABLET (FP) PO SCH (10:05)
[2018-06-05] MEDS: LISINOPRIL 20 MG TABLET (FP) PO SCH (10:05)
[2018-06-05] MEDS: PRENATAL VITAMINS W/ FOLIC ACID TABLET (FP) PO SCH (10:05)
[2018-06-05] MEDS: ASPIRIN 81 MG CHEWABLE TABLETS PO SCH (10:05)
--- NOTE | 2018-06-05 10:30 | CONSULT ---
[facility] Psychiatric Consult - Data Date of interview: 06/05/18 Admission source: [facility] Identifying data: Another admission to [facility] for this 48 y/o male self-referred for detoxification (alcohol, cocaine, heroin). Examined at [address] [place] [address]. Patient is single, a father of four (claimed five at a previous encounter ), domiciled, unemployed and dependent on food stamps + relatives for financial support (SSI pending). Substance Abuse History: Confirmed by the patient. Details in current [facility] report as follows : Smoking history: Current every day smoker. Have you smoked in the past 12 months: Yes. Aproximately how many cigarettes per day: 10. Cigars Per Day: 0. Hx Chewing Tobacco Use: No. Initiated information on smoking cessation: Yes. 'Breaking Loose' booklet given: 06/04/18. - Substance & Tx. History. Hx Alcohol Use: Yes. Hx Substance Use: Yes (ENROLLED IN AN MMTP ). Substance Use Type: Alcohol. Hx Substance Use Treatment: Yes (DETOX AND REHAB: 01/2018). - Substances Abused. Alcohol. Route: Oral. Frequency : Daily. Amount used: 3 pints vodka. Age of first use: 21. Date of Last Use: 06/04/18 Medical History: Remarkable for a history of dyslipidemia, hypertension, hepatitis C and seizure disorder (withdrawal-induced seizures). Noted history of past treatment for syphilis in 1989. Psychiatric History: In this interview, the patient denies history of psychiatric hospitalizations but aknowledges scripts for seroquel + remeron ( previous records at [facility] yield a history of two psychiatric hospitalizations at [facility] in 2006 + 2014). Patient is reportedly diagnosed with Panic Disorder, MDD and Anxiety Disorder, according to existing records.Mr Espinoza, however, denies having any psychiatric disorder (current interview). He continues to see a psychiatrist, Dr Ferrer, at [facility]. Patient atends the [facility] program in the [place] (methadone daily dose = 60 mg). No reported history of suicide attempts. Physical/Sexual Abuse/Trauma History: Patient denies. Additional Comment: Urine Drug Screen Results: BZO-Benzodiazepines, MTD- Methadone. Noted. Mental Status Exam - Mental Status Exam Alert and Oriented to: Time, Place, Person Cognitive Function: Good Patient Appearance: Well Groomed Mood: Withdrawn, Anxious Affect: Mood Congruent, Constricted Patient Behavior: Fatigued, Cooperative Speech Pattern: Clear, Appropriate Voice Loudness: Normal Thought Process: Goal Oriented Thought Disorder: Not Present Hallucinations: Denies Suicidal Ideation: Denies Homicidal Ideation: Denies Insight/Judgement: Poor Sleep: Poorly, Difficulty falling asleep Appetite: Good Muscle strength/Tone: Normal Gait/Station: Normal Psychiatric Findings - Problem List ([place] 1, 2,3) (1) Alcohol dependence with uncomplicated withdrawal Current Visit: Yes Status: Acute (2) Opioid dependence on agonist therapy Current Visit: Yes Status: Chronic (3) Nicotine dependence Current Visit: Yes Status: Chronic Qualifiers: Nicotine product type: cigarettes Substance use status: in withdrawal Qualified Code(s): F17.213 - Nicotine dependence, cigarettes, with withdrawal (4) Substance induced mood disorder Current Visit: Yes Status: Chronic (5) Insomnia Current Visit: Yes Status: Acute - Initial Treatment Plan Initial Treatment Plan: Psychoeducation. Sleep hygiene. Detoxification in progress. Support. Patient declines to resume seroquel or mirtazapine. " I am fine with melatonin at night. I don't want to deal with the side effects of seroquel ". Mr Espinoza has expressed concern about his abnormal EKG (showing prolonged QT). Reassurance provided. AA/NA meetings. Observation.
--- NOTE | 2018-06-05 11:21 | PN ---
S CIWA - CIWA Score Nausea/Vomitin-No Nausea/No Vomiting Muscle Tremors: 3 Anxiety: 1-Mildly Anxious Agitation: 2 Paroxysmal Sweats: 1-Minimal Palms Moist Orientation: 2-Disoriented Date<2 days Tacttile Disturbances: 0-None Auditory Disturbances: 0-None Visual Disturbances: 0-None Headache: 2-Mild CIWA-Ar Total Score: 11 BHS Progress Note (SOAP) Subjective: had methadone 60 mg feeling ok social with peers in day room Objective: 06/05/18 11:21 Vital Signs Temperature 96.6 F L 06/05/18 09:38 Pulse Rate 76 06/05/18 11:00 Respiratory Rate 18 06/05/18 11:00 Blood Pressure 143/92 06/05/18 09:38 O2 Sat by Pulse Oximetry (%) 06/05/18 11:21 lab pending Assessment: 06/05/18 11:21 withdrawal sx Plan: continue detox
[2018-06-05 12:42] LABS: HEMATOCRIT 39.9 % (35.4-49); HEMOGLOBIN 13.3 GM/dL (11.7-16.9); MCH 34.4 pg (25.7-33.7); MCHC 33.4 g/dl (32.0-35.9); MEAN PLT VOLUME 9.1 fl (7.5-11.1); PLATELET COUNT 155 K/MM3 (134-434); RBC 3.87 M/mm3 (4.00-5.60); RDW 16.6 % (11.9-15.9); WHITE BLOOD COUNT 4.9 K/mm3 (4.0-10.0)
[2018-06-05 13:19] LABS: ALBUMIN 3.3 g/dl (3.4-5.0); ALK PHOS 118 U/L (45-117); ANION GAP 7 MMOL/L (8-16); BILIRUBIN,TOTAL 0.8 mg/dL (0.2-1); BLOOD UREA NITROGEN 11 mg/dL (7-18); CALCIUM 8.5 mg/dL (8.5-10.1); CHLORIDE 100 mmol/L (98-107); CO2 31 mmol/L (21-32); CREATININE 0.7 mg/dL (0.55-1.3); GLUCOSE,RANDOM 106 mg/dL (74-106); POTASSIUM 3.5 mmol/L (3.5-5.1); SGOT/AST 174 U/L (15-37); SGPT/ALT 203 U/L (13-61); SODIUM 139 mmol/L (136-145); TOT PROT 7.6 g/dl (6.4-8.2)
[2018-06-05] MEDS: cloNIDine HCL 0.1 MG TABLET PO PRN (18:46)
[2018-06-05] MEDS: THIAMINE HCL 100 MG TABLET (FP) PO SCH (22:24)
[2018-06-05] MEDS: MELATONIN 5 MG TABLETS PO PRN (22:24)
[2018-06-06] MEDS ORDERED: METHADONE HCL 10 MG TABLET ONE (04:43)
[2018-06-06] MEDS ORDERED: METHADONE HCL 40 MG DISPERSABLE TABLET ONE (04:43)
[2018-06-06] MEDS: cloNIDine HCL 0.1 MG TABLET PO PRN ×2 (05:40→15:07)
[2018-06-06] MEDS: METHADONE 40 MG, METHADONE 20 MG PO SCH (05:40)
[2018-06-06] MEDS: chlordiazePOXIDE HCL 25 MG CAPSULE PO SCH ×3 (05:40→17:46)
[2018-06-06] MEDS ORDERED: METHADONE HCL 10 MG TABLET PO SCH (06:00)
[2018-06-06 09:57] LABS: RPR REACTIVE 1:1 (NONREACTIVE)
[2018-06-06 09:59] LABS: TREPONEMA ANTIBODY PREVIOUSLY REACTIVE (NONREACTIVE)
[2018-06-06] MEDS: PRENATAL VITAMINS W/ FOLIC ACID TABLET (FP) PO SCH (10:10)
[2018-06-06] MEDS: ASPIRIN 81 MG CHEWABLE TABLETS PO SCH (10:10)
[2018-06-06] MEDS: HYDROCHLOROTHIAZIDE 25 MG TABLET (FP) PO SCH (10:10)
[2018-06-06] MEDS: LISINOPRIL 20 MG TABLET (FP) PO SCH (10:10)
--- NOTE | 2018-06-06 14:15 | PN ---
[facility] CIWA - CIWA Score Nausea/Vomitin-No Nausea/No Vomiting Muscle Tremors: 1-None Visible, but [place] Anxiety: 1-Mildly Anxious Agitation: 1-Slight > Activity Paroxysmal Sweats: 1-Minimal Palms Moist Orientation: 1-Uncertain about Date Tacttile Disturbances: 0-None Auditory Disturbances: 0-None Visual Disturbances: 0-None Headache: 1-Very Mild CIWA-Ar Total Score: 6 S Progress Note (SOAP) Subjective: feeling better well rested social with peers in day room and hallway Objective: 06/06/18 14:19 Vital Signs Temperature 97.6 F 06/06/18 10:15 Pulse Rate 93 H 06/06/18 10:15 Respiratory Rate 18 06/06/18 10:15 Blood Pressure 133/83 06/06/18 10:15 O2 Sat by Pulse Oximetry (%) Laboratory Last Values WBC 4.9 K/mm3 (4.0-10.0) 06/05/18 07:30 RBC 3.87 M/mm3 (4.00-5.60) L 06/05/18 07:30 Hgb 13.3 GM/dL (11.7-16.9) 06/05/18 07:30 Hct 39.9 % (35.4-49) 06/05/18 07:30 MCV 103.0 fl (80-96) H 06/05/18 07:30 MCH 34.4 pg (25.7-33.7) H 06/05/18 07:30 MCHC 33.4 g/dl (32.0-35.9) 06/05/18 07:30 RDW 16.6 % (11.9-15.9) H 06/05/18 07:30 Plt Count 155 K/MM3 (134-434) 06/05/18 07:30 MPV 9.1 fl (7.5-11.1) 06/05/18 07:30 Sodium 139 mmol/L (136-145) 06/05/18 07:30 Potassium 3.5 mmol/L (3.5-5.1) 06/05/18 07:30 Chloride 100 mmol/L (98-107) 06/05/18 07:30 Carbon Dioxide 31 mmol/L (21-32) 06/05/18 07:30 Anion Gap 7 MMOL/L (8-16) L 06/05/18 07:30 BUN 11 mg/dL (7-18) 06/05/18 07:30 Creatinine 0.7 mg/dL (0.55-1.3) 06/05/18 07:30 Creat Clearance w eGFR 120.37 (>60) 06/05/18 07:30 Random Glucose 106 mg/dL (74-106) 06/05/18 07:30 Calcium 8.5 mg/dL (8.5-10.1) 06/05/18 07:30 Total Bilirubin 0.8 mg/dL (0.2-1) 06/05/18 07:30 AST 174 U/L (15-37) H 06/05/18 07:30 ALT 203 U/L (13-61) H 06/05/18 07:30 Alkaline Phosphatase 118 U/L (45-117) H 06/05/18 07:30 Total Protein 7.6 g/dl (6.4-8.2) 06/05/18 07:30 Albumin 3.3 g/dl (3.4-5.0) L 06/05/18 07:30 RPR Titer Reactive 1:1 (NONREACTIVE) H 06/05/18 07:30 T.pallidum Ab (MHA) Previously reactive (NONREACTIVE) 06/05/18 07:30 lab noted ast evelation patient agrees to bring in medication list and lab result to methadone program for follow up 06/06/18 14:22 Assessment: 06/06/18 14:23 mild withdrawal sx Plan: continue detox
[2018-06-06] MEDS: hydrOXYzine PAMOATE 25 MG CAPSULE (FP) PO PRN (20:08)
[2018-06-06] MEDS: THIAMINE HCL 100 MG TABLET (FP) PO SCH (22:07)
[2018-06-06] MEDS: chlordiazePOXIDE HCL 10 MG CAPSULE PO SCH (22:07)
[2018-06-06] MEDS: QUEtiapine FUMARATE 50 MG TABLET PO PRN (22:09)
[2018-06-06] MEDS ORDERED: chlordiazePOXIDE HCL 10 MG CAPSULE PO PRN (23:00)
[2018-06-07] MEDS ORDERED: METHADONE HCL 40 MG DISPERSABLE TABLET ONE (05:00)
[2018-06-07] MEDS ORDERED: METHADONE HCL 10 MG TABLET ONE (05:00)
[2018-06-07] MEDS: chlordiazePOXIDE HCL 10 MG CAPSULE PO SCH ×4 (05:40→22:31)
[2018-06-07] MEDS: METHADONE 40 MG, METHADONE 20 MG PO SCH (05:41)
[2018-06-07] MEDS: HYDROCHLOROTHIAZIDE 25 MG TABLET (FP) PO SCH (10:12)
[2018-06-07] MEDS: PRENATAL VITAMINS W/ FOLIC ACID TABLET (FP) PO SCH (10:12)
[2018-06-07] MEDS: ASPIRIN 81 MG CHEWABLE TABLETS PO SCH (10:12)
[2018-06-07] MEDS: LISINOPRIL 20 MG TABLET (FP) PO SCH (10:12)
[2018-06-07] MEDS: hydrOXYzine PAMOATE 25 MG CAPSULE (FP) PO PRN (15:35)
--- NOTE | 2018-06-07 16:37 | PN ---
BHS Progress Note (SOAP) Subjective: Anxious, Sweating. Objective: PATIENT A & O X 3, OBSERVED AMBULATING ON UNIT. IN NO ACUTE DISTRESS. 06/07/18 16:37 Vital Signs Temperature 98.5 F 06/07/18 13:00 Pulse Rate 92 H 06/07/18 13:00 Respiratory Rate 18 06/07/18 13:00 Blood Pressure 118/87 06/07/18 13:00 O2 Sat by Pulse Oximetry (%) Laboratory Tests 06/05/18 06/05/18 06/05/18 07:30 07:30 07:30 WBC 4.9 RBC 3.87 L Hgb 13.3 Hct 39.9 MCV 103.0 H MCH 34.4 H MCHC 33.4 RDW 16.6 H Plt Count 155 MPV 9.1 Sodium 139 Potassium 3.5 Chloride 100 Carbon Dioxide 31 Anion Gap 7 L BUN 11 Creatinine 0.7 Creat Clearance w eGFR 120.37 Random Glucose 106 Calcium 8.5 Total Bilirubin 0.8 AST 174 H ALT 203 H Alkaline Phosphatase 118 H Total Protein 7.6 Albumin 3.3 L RPR Titer Reactive 1:1 H T.pallidum Ab (MHA) Previously reactive LABS NOTED. RPR NOTED TO BE REACTIVE 1:1; MHA-TP: PREVIOUSLY REACTIVE. PATIENT REPORTS THAT HE COMPLETED A FULL COURSE OF ANTIBIOTIC TREATMENT FOR SYPHILIS IN THE PAST. 06/07/18 16:49 Assessment: 06/07/18 16:38 WITHDRAWAL SYMPTOMS. ELEVATED LIVER ENZYMES. 06/07/18 16:38 Plan: CONTINUE DETOX. INCREASE DAILY PO FLUID INTAKE.
[2018-06-07] MEDS: THIAMINE HCL 100 MG TABLET (FP) PO SCH (22:30)
[2018-06-07] MEDS: MELATONIN 5 MG TABLETS PO PRN (22:32)
[2018-06-07] MEDS: QUEtiapine FUMARATE 50 MG TABLET PO PRN (22:34)
[2018-06-08] MEDS ORDERED: METHADONE HCL 10 MG TABLET ONE (04:46)
[2018-06-08] MEDS ORDERED: METHADONE HCL 40 MG DISPERSABLE TABLET ONE (04:47)
[2018-06-08] MEDS: METHADONE 40 MG, METHADONE 20 MG PO SCH (05:26)
[2018-06-08 09:58] VITALS: BP 129/92; PULSE 95; TEMP 97.4
[2018-06-08] MEDS: LISINOPRIL 20 MG TABLET (FP) PO SCH (10:21)
[2018-06-08] MEDS: HYDROCHLOROTHIAZIDE 25 MG TABLET (FP) PO SCH (10:21)
[2018-06-08] MEDS: PRENATAL VITAMINS W/ FOLIC ACID TABLET (FP) PO SCH (10:21)
[2018-06-08] MEDS: ASPIRIN 81 MG CHEWABLE TABLETS PO SCH (10:21)
[2018-06-08] MEDS: chlordiazePOXIDE HCL 10 MG CAPSULE PO SCH (12:07)
--- NOTE | 2018-06-08 13:30 | PN ---
S Progress Note (SOAP) Subjective: no complaints offered Objective: 06/08/18 13:29 In no distress Vital Signs Temperature 97.4 F L 06/08/18 09:57 Pulse Rate 95 H 06/08/18 09:57 Respiratory Rate 18 06/08/18 09:57 Blood Pressure 129/92 06/08/18 09:57 O2 Sat by Pulse Oximetry (%) Assessment: 06/08/18 13:29 completed detox Plan: for discharge
--- NOTE | 2018-06-08 13:31 | DS ---
[facility] Detox Discharge Summary Admission Date: 06/04/18 Discharge Date: 06/08/18 - History Additional Comments: Pt completed detox Will continue aftercare at [facility] Rehab - Physical Exam Results Vital Signs: Vital Signs Temperature 97.4 F L 06/08/18 09:57 Pulse Rate 95 H 06/08/18 09:57 Respiratory Rate 18 06/08/18 09:57 Blood Pressure 129/92 06/08/18 09:57 O2 Sat by Pulse Oximetry (%) - Treatment Hospital Course: Detox Protocol Followed, Detoxed Safely, Responded well, Discharged Condition Good, Rehab Referral Accepted Patient has Accepted a Rehab Referral to: [facility] - Medication Discharge Medications: Ambulatory Orders Quetiapine Fumarate [Seroquel] 100 mg PO HS #30 tablet 11/23/16 Hydrochlorothiazide [Hctz -] 25 mg PO DAILY #30 tablet 02/19/18 Lisinopril 20 mg PO DAILY 30 Days #30 tablet 02/19/18 Aspirin [ASA -] 81 mg PO DAILY 06/04/18 - AMA Did Patient Leave Against Medical Advice: No
== END 2018-06-08 12:17 | disposition other institution (70) | DRG 773 ==
LOC: YASAS 13:22 → Y3N 18:49
PROVIDERS: ADMIT Surgery; ATTEND Surgery
PROC: HZ2ZZZZ Detoxification Services for Substance Abuse Treatment (ICD-10-PCS; principal; 2018-06-04)
DX: F10.230 Alcohol dependence with withdrawal, uncomplicated (principal); F11.20 Opioid dependence, uncomplicated; F17.213 Nicotine dependence, cigarettes, with withdrawal; F19.24 Other psychoactive substance dependence with psychoactive substance-induced mood disorder; G47.00 Insomnia, unspecified; I10 Essential (primary) hypertension; B18.2 Chronic viral hepatitis C; R94.5 Abnormal results of liver function studies; R74.8 Abnormal levels of other serum enzymes; Z86.69 Personal history of other diseases of the nervous system and sense organs
CPT/HCPCS: 36415; 80053; 85027; 86593; 86780; 93005; 93010; J0735

== ENCOUNTER 2018-06-08 12:03 | Inpatient (IN) | payer OTHER ==
[2018-06-08] MEDS ORDERED: MAGNESIUM HYDROX 2400MG/30ML ORAL SUSPENSION 30 ML CUP PO PRN (13:33)
[2018-06-08] MEDS ORDERED: guaiFENesin 200 MG/10 ML 10 ML UNIT-DOSE CUPS PO PRN (13:33)
[2018-06-08] MEDS ORDERED: MENTHOL/PHENOL 1 EACH UD MM PRN (13:33)
[2018-06-08] MEDS ORDERED: MAG HYDROX/AL HYDROX/SIMETH 30 ML UNIT-DOSE CUP PO PRN (13:33)
[2018-06-08] MEDS ORDERED: ACETAMINOPHEN 325 MG TABLET (FP) PO PRN (13:33)
[2018-06-08] MEDS ORDERED: P-EPHED 60MG/TRIPROLIDI 2.5MG TABLET PO PRN (13:33)
[2018-06-08] MEDS ORDERED: NICOTINE POLACRILEX 2 MG GUM BUC PRN (13:33)
[2018-06-08] MEDS ORDERED: LOPERAMIDE HCL 2 MG CAPSULE PO PRN (13:33)
[2018-06-08] MEDS ORDERED: MAGNESIUM CITRATE 300 ML BOTTLE PO PRN (13:33)
--- NOTE | 2018-06-08 14:45 | HP ---
[facility] Rehab Assess/Revision - Admission History Admitted to Rehab from: [facility] Date of Admission to Rehab: 06/08/18 - Vital signs Vital Signs: Vital Signs Period Temp Pulse Resp BP Sys/Garcia Pulse Ox Last 24 Hr 97.8 F 86 18 126/84 - Findings Detox History & Physical reviewed: Yes Concur with findings: Yes Comments/Additional Findings: for rehab as protcol Inpatient Rehab Admission - Rehab Decision to Admit Inpatient rehab admission?: Yes - Initial Determination Are CD services needed?: Yes Free of communicable disease: Yes Not in need of hospitalization: Yes - Rehab Admission Criteria Previous failed treatment: Yes Poor recovery environment: Yes Comorbidities: Yes Lacks judgement: No Patient is meeting Inpatient Rehab admission criteria:: Yes
[2018-06-08] MEDS: MELATONIN 5 MG TABLETS PO PRN (22:19)
[2018-06-08] MEDS: THIAMINE HCL 100 MG TABLET (FP) PO SCH (22:19)
[2018-06-09] MEDS ORDERED: METHADONE HCL 10 MG TABLET PO SCH (06:00)
[2018-06-09] MEDS: METHADONE 40 MG, METHADONE 20 MG PO SCH (06:14)
[2018-06-09] MEDS ORDERED: METHADONE HCL 10 MG TABLET ONE (06:14)
[2018-06-09] MEDS ORDERED: METHADONE HCL 40 MG DISPERSABLE TABLET ONE (06:14)
[2018-06-09] MEDS: NICOTINE 7 MG/24 HOURS TOPICAL PATCH TD SCH (09:46)
[2018-06-09] MEDS: LISINOPRIL 20 MG TABLET (FP) PO SCH (09:46)
[2018-06-09] MEDS: HYDROCHLOROTHIAZIDE 25 MG TABLET (FP) PO SCH (09:46)
[2018-06-09] MEDS: ASPIRIN 81 MG CHEWABLE TABLETS PO SCH (09:46)
[2018-06-09] MEDS: PRENATAL VITAMINS W/ FOLIC ACID TABLET (FP) PO SCH (09:46)
[2018-06-09] MEDS: THIAMINE HCL 100 MG TABLET (FP) PO SCH (21:19)
[2018-06-09] MEDS: MELATONIN 5 MG TABLETS PO PRN (21:19)
[2018-06-10] MEDS ORDERED: METHADONE HCL 10 MG TABLET ONE (04:08)
[2018-06-10] MEDS ORDERED: METHADONE HCL 40 MG DISPERSABLE TABLET ONE (04:08)
[2018-06-10] MEDS: METHADONE 40 MG, METHADONE 20 MG PO SCH (06:09)
[2018-06-10] MEDS: PRENATAL VITAMINS W/ FOLIC ACID TABLET (FP) PO SCH (10:25)
[2018-06-10] MEDS: LISINOPRIL 20 MG TABLET (FP) PO SCH (10:25)
[2018-06-10] MEDS: HYDROCHLOROTHIAZIDE 25 MG TABLET (FP) PO SCH (10:25)
[2018-06-10] MEDS: ASPIRIN 81 MG CHEWABLE TABLETS PO SCH (10:25)
[2018-06-10] MEDS: NICOTINE 7 MG/24 HOURS TOPICAL PATCH TD SCH (10:25)
[2018-06-10] MEDS: IBUPROFEN 400 MG TABLET (FP) PO PRN (11:51)
[2018-06-10] MEDS: hydrOXYzine PAMOATE 25 MG CAPSULE (FP) PO PRN ×2 (11:52→22:43)
[2018-06-10] MEDS: MELATONIN 5 MG TABLETS PO PRN (21:16)
[2018-06-10] MEDS: THIAMINE HCL 100 MG TABLET (FP) PO SCH (21:16)
[2018-06-11] MEDS ORDERED: METHADONE HCL 10 MG TABLET ONE (03:12)
[2018-06-11] MEDS ORDERED: METHADONE HCL 40 MG DISPERSABLE TABLET ONE (03:12)
[2018-06-11] MEDS: METHADONE 40 MG, METHADONE 20 MG PO SCH (06:01)
[2018-06-11] MEDS: PRENATAL VITAMINS W/ FOLIC ACID TABLET (FP) PO SCH (10:03)
[2018-06-11] MEDS: LISINOPRIL 20 MG TABLET (FP) PO SCH (10:03)
[2018-06-11] MEDS: ASPIRIN 81 MG CHEWABLE TABLETS PO SCH (10:03)
[2018-06-11] MEDS: HYDROCHLOROTHIAZIDE 25 MG TABLET (FP) PO SCH (10:03)
[2018-06-11] MEDS: NICOTINE 7 MG/24 HOURS TOPICAL PATCH TD SCH (10:03)
[2018-06-11] MEDS: hydrOXYzine PAMOATE 25 MG CAPSULE (FP) PO PRN ×2 (10:05→17:37)
[2018-06-11] MEDS: THIAMINE HCL 100 MG TABLET (FP) PO SCH (21:27)
[2018-06-11] MEDS: MELATONIN 5 MG TABLETS PO PRN (21:27)
[2018-06-12] MEDS ORDERED: METHADONE HCL 40 MG DISPERSABLE TABLET ONE (04:17)
[2018-06-12] MEDS ORDERED: METHADONE HCL 10 MG TABLET ONE (04:17)
[2018-06-12] MEDS: METHADONE 40 MG, METHADONE 20 MG PO SCH (06:07)
[2018-06-12] MEDS: LISINOPRIL 20 MG TABLET (FP) PO SCH (10:07)
[2018-06-12] MEDS: PRENATAL VITAMINS W/ FOLIC ACID TABLET (FP) PO SCH (10:07)
[2018-06-12] MEDS: HYDROCHLOROTHIAZIDE 25 MG TABLET (FP) PO SCH (10:07)
[2018-06-12] MEDS: NICOTINE 7 MG/24 HOURS TOPICAL PATCH TD SCH (10:07)
[2018-06-12] MEDS: ASPIRIN 81 MG CHEWABLE TABLETS PO SCH (10:07)
[2018-06-12] MEDS: hydrOXYzine PAMOATE 25 MG CAPSULE (FP) PO PRN ×2 (10:08→21:12)
--- NOTE | 2018-06-12 10:33 | PN ---
[facility] Progress Note Note: PT REQUESTING FOR HOME MEDICATIONS BE SENT TO HIS PHARMACY BECAUSE PLANNING TO LEAVE ON 06/19/[address] WITH THE REGISTRY RN CONCERNING SSD/SSI. REPORTS HE HAS BEEN WAITING FOR THIS PROCESS FOR THE PAST 2 YEARS AND NOW HAS TO ATTEND. PT REPORTS HE HAS A PCP, DR. ODELL AT [place], [place] WHO HE WILL MAKE APPOINTMENT TO GET A FOLLOW UP DATE AFTER REHAB TREATMENT. HYPERTENSIVE MEDS SENT ELECTRONICALLY TO PT'S PHARMACY PENDING DISCHARGE. Home Medications Medication Instructions Recorded Quetiapine Fumarate [Seroquel] 100 mg PO HS #30 tablet 11/23/16 Aspirin [ASA -] 81 mg PO DAILY #14 tab.chew 06/12/18 Hydrochlorothiazide [Hctz -] 25 mg PO DAILY #14 tablet 06/12/18 Lisinopril 20 mg PO DAILY 30 Days #14 tablet 06/12/18
[2018-06-12] MEDS: IBUPROFEN 400 MG TABLET (FP) PO PRN (15:23)
[2018-06-12] MEDS: MELATONIN 5 MG TABLETS PO PRN (21:11)
[2018-06-12] MEDS: THIAMINE HCL 100 MG TABLET (FP) PO SCH (21:11)
[2018-06-13] MEDS ORDERED: METHADONE HCL 10 MG TABLET ONE (03:31)
[2018-06-13] MEDS ORDERED: METHADONE HCL 40 MG DISPERSABLE TABLET ONE (03:32)
[2018-06-13] MEDS: METHADONE 40 MG, METHADONE 20 MG PO SCH (06:11)
[2018-06-13] MEDS: ASPIRIN 81 MG CHEWABLE TABLETS PO SCH (09:58)
[2018-06-13] MEDS: NICOTINE 7 MG/24 HOURS TOPICAL PATCH TD SCH (09:58)
[2018-06-13] MEDS: LISINOPRIL 20 MG TABLET (FP) PO SCH (09:58)
[2018-06-13] MEDS: HYDROCHLOROTHIAZIDE 25 MG TABLET (FP) PO SCH (09:58)
[2018-06-13] MEDS: PRENATAL VITAMINS W/ FOLIC ACID TABLET (FP) PO SCH (09:58)
[2018-06-13] MEDS: hydrOXYzine PAMOATE 25 MG CAPSULE (FP) PO PRN ×2 (10:00→21:24)
[2018-06-13 10:05] LABS: ALBUMIN 3.7 g/dl (3.4-5.0); ALK PHOS 134 U/L (45-117); ANION GAP 6 MMOL/L (8-16); BILIRUBIN,TOTAL 0.7 mg/dL (0.2-1); BLOOD UREA NITROGEN 14 mg/dL (7-18); CALCIUM 8.7 mg/dL (8.5-10.1); CHLORIDE 100 mmol/L (98-107); CO2 32 mmol/L (21-32); CREATININE 0.9 mg/dL (0.55-1.3); GLUCOSE,RANDOM 123 mg/dL (74-106); POTASSIUM 4.4 mmol/L (3.5-5.1); SGOT/AST 488 U/L (15-37); SGPT/ALT 719 U/L (13-61); SODIUM 138 mmol/L (136-145); TOT PROT 8.4 g/dl (6.4-8.2)
[2018-06-13 10:27] LABS: HEMATOCRIT 43.3 % (35.4-49); HEMOGLOBIN 14.4 GM/dL (11.7-16.9); MCH 33.9 pg (25.7-33.7); MCHC 33.3 g/dl (32.0-35.9); MEAN CELL VOLUME 101.9 fl (80-96); PLATELET COUNT 203 K/MM3 (134-434); RBC 4.25 M/mm3 (4.00-5.60); RDW 15.9 % (11.9-15.9); WHITE BLOOD COUNT 6.5 K/mm3 (4.0-10.0)
--- NOTE | 2018-06-13 13:57 | PN ---
[facility] Progress Note Note: Laboratory Last Values WBC 6.5 K/mm3 (4.0-10.0) 06/13/18 07:35 RBC 4.25 M/mm3 (4.00-5.60) 06/13/18 07:35 Hgb 14.4 GM/dL (11.7-16.9) 06/13/18 07:35 Hct 43.3 % (35.4-49) 06/13/18 07:35 MCV 101.9 fl (80-96) H 06/13/18 07:35 MCH 33.9 pg (25.7-33.7) H 06/13/18 07:35 MCHC 33.3 g/dl (32.0-35.9) 06/13/18 07:35 RDW 15.9 % (11.9-15.9) 06/13/18 07:35 Plt Count 203 K/MM3 (134-434) D 06/13/18 07:35 MPV 9.0 fl (7.5-11.1) 06/13/18 07:35 Sodium 138 mmol/L (136-145) 06/13/18 07:35 Potassium 4.4 mmol/L (3.5-5.1) 06/13/18 07:35 Chloride 100 mmol/L (98-107) 06/13/18 07:35 Carbon Dioxide 32 mmol/L (21-32) 06/13/18 07:35 Anion Gap 6 MMOL/L (8-16) L 06/13/18 07:35 BUN 14 mg/dL (7-18) 06/13/18 07:35 Creatinine 0.9 mg/dL (0.55-1.3) 06/13/18 07:35 Creat Clearance w eGFR 90.06 (>60) 06/13/18 07:35 Random Glucose 123 mg/dL (74-106) H 06/13/18 07:35 Calcium 8.7 mg/dL (8.5-10.1) 06/13/18 07:35 Total Bilirubin 0.7 mg/dL (0.2-1) 06/13/18 07:35 AST 488 U/L (15-37) H 06/13/18 07:35 ALT 719 U/L (13-61) H 06/13/18 07:35 Alkaline Phosphatase 134 U/L (45-117) H 06/13/18 07:35 Total Protein 8.4 g/dl (6.4-8.2) H 06/13/18 07:35 Albumin 3.7 g/dl (3.4-5.0) 06/13/18 07:35 Vital Signs (72 hours) 06/11/18 06/11/18 06/11/18 00:30 03:30 06:43 Temperature 97.8 F Pulse Rate 79 Respiratory 18 18 18 Rate Blood Pressure 126/83 06/11/18 06/12/18 06/12/18 10:00 00:30 03:30 Temperature Pulse Rate 95 H Respiratory 18 18 Rate Blood Pressure 121/76 06/12/18 06/12/18 06/13/18 06:57 10:00 00:30 Temperature 97.8 F Pulse Rate 84 87 Respiratory 16 18 Rate Blood Pressure 105/73 114/78 06/13/18 06/13/18 06/13/18 03:30 06:49 10:00 Temperature 97.6 F Pulse Rate 73 81 Respiratory 18 18 Rate Blood Pressure 129/84 128/78 Liver enzymes elevated, related to Chronic Hepatitis C Infection.
[2018-06-13] MEDS: MELATONIN 5 MG TABLETS PO PRN (21:24)
[2018-06-13] MEDS: THIAMINE HCL 100 MG TABLET (FP) PO SCH (21:24)
[2018-06-14] MEDS ORDERED: METHADONE HCL 10 MG TABLET ONE (05:54)
[2018-06-14] MEDS ORDERED: METHADONE HCL 40 MG DISPERSABLE TABLET ONE (05:55)
[2018-06-14] MEDS: METHADONE 40 MG, METHADONE 20 MG PO SCH (06:07)
[2018-06-14] MEDS: PRENATAL VITAMINS W/ FOLIC ACID TABLET (FP) PO SCH (09:44)
[2018-06-14] MEDS: HYDROCHLOROTHIAZIDE 25 MG TABLET (FP) PO SCH (09:44)
[2018-06-14] MEDS: LISINOPRIL 20 MG TABLET (FP) PO SCH (09:44)
[2018-06-14] MEDS: ASPIRIN 81 MG CHEWABLE TABLETS PO SCH (09:44)
[2018-06-14] MEDS: hydrOXYzine PAMOATE 25 MG CAPSULE (FP) PO PRN ×2 (09:47→21:07)
[2018-06-14] MEDS: NICOTINE 7 MG/24 HOURS TOPICAL PATCH TD SCH (10:52)
[2018-06-14] MEDS: MELATONIN 5 MG TABLETS PO PRN (21:07)
[2018-06-14] MEDS: THIAMINE HCL 100 MG TABLET (FP) PO SCH (21:07)
[2018-06-15] MEDS ORDERED: METHADONE HCL 10 MG TABLET ONE (04:39)
[2018-06-15] MEDS ORDERED: METHADONE HCL 40 MG DISPERSABLE TABLET ONE (04:39)
[2018-06-15] MEDS: METHADONE 40 MG, METHADONE 20 MG PO SCH (06:15)
[2018-06-15] MEDS: ASPIRIN 81 MG CHEWABLE TABLETS PO SCH (09:46)
[2018-06-15] MEDS: LISINOPRIL 20 MG TABLET (FP) PO SCH (09:46)
[2018-06-15] MEDS: HYDROCHLOROTHIAZIDE 25 MG TABLET (FP) PO SCH (09:46)
[2018-06-15] MEDS: PRENATAL VITAMINS W/ FOLIC ACID TABLET (FP) PO SCH (09:46)
[2018-06-15] MEDS: NICOTINE 7 MG/24 HOURS TOPICAL PATCH TD SCH (09:47)
[2018-06-15] MEDS: THIAMINE HCL 100 MG TABLET (FP) PO SCH (21:21)
[2018-06-15] MEDS: hydrOXYzine PAMOATE 25 MG CAPSULE (FP) PO PRN (21:21)
[2018-06-15] MEDS: MELATONIN 5 MG TABLETS PO PRN (21:21)
[2018-06-15] MEDS: IBUPROFEN 400 MG TABLET (FP) PO PRN (21:22)
[2018-06-16] MEDS ORDERED: METHADONE HCL 10 MG TABLET ONE (04:17)
[2018-06-16] MEDS ORDERED: METHADONE HCL 40 MG DISPERSABLE TABLET ONE (04:18)
[2018-06-16] MEDS: METHADONE 40 MG, METHADONE 20 MG PO SCH (06:05)
[2018-06-16] MEDS: PRENATAL VITAMINS W/ FOLIC ACID TABLET (FP) PO SCH (09:57)
[2018-06-16] MEDS: ASPIRIN 81 MG CHEWABLE TABLETS PO SCH (09:57)
[2018-06-16] MEDS: LISINOPRIL 20 MG TABLET (FP) PO SCH (09:58)
[2018-06-16] MEDS: HYDROCHLOROTHIAZIDE 25 MG TABLET (FP) PO SCH (09:58)
[2018-06-16] MEDS: NICOTINE 7 MG/24 HOURS TOPICAL PATCH TD SCH (09:58)
[2018-06-16] MEDS: hydrOXYzine PAMOATE 25 MG CAPSULE (FP) PO PRN ×2 (09:59→21:03)
[2018-06-16] MEDS: MELATONIN 5 MG TABLETS PO PRN (21:03)
[2018-06-16] MEDS: THIAMINE HCL 100 MG TABLET (FP) PO SCH (21:03)
[2018-06-17] MEDS ORDERED: METHADONE HCL 10 MG TABLET ONE (03:54)
[2018-06-17] MEDS ORDERED: METHADONE HCL 40 MG DISPERSABLE TABLET ONE (03:54)
[2018-06-17] MEDS: METHADONE 40 MG, METHADONE 20 MG PO SCH (05:59)
[2018-06-17] MEDS: PRENATAL VITAMINS W/ FOLIC ACID TABLET (FP) PO SCH (10:24)
[2018-06-17] MEDS: LISINOPRIL 20 MG TABLET (FP) PO SCH (10:24)
[2018-06-17] MEDS: HYDROCHLOROTHIAZIDE 25 MG TABLET (FP) PO SCH (10:24)
[2018-06-17] MEDS: NICOTINE 7 MG/24 HOURS TOPICAL PATCH TD SCH (10:25)
[2018-06-17] MEDS: hydrOXYzine PAMOATE 25 MG CAPSULE (FP) PO PRN ×2 (10:25→21:24)
[2018-06-17] MEDS: ASPIRIN 81 MG CHEWABLE TABLETS PO SCH (10:56)
[2018-06-17] MEDS: IBUPROFEN 400 MG TABLET (FP) PO PRN (12:41)
--- NOTE | 2018-06-17 14:44 | PN ---
[facility] Progress Note Note: PT C/O SEVERE LOWER BACK PAIN NOT RELIEVED WITH MOTRIN AND WANTS THE PATCH. ALERT O X 3. OOB AMBULATING BUT HOLDING LOWER BACK IN THE PROCESS. Vital Signs - 24 hr 06/17/18 06/17/18 06/17/18 00:30 03:30 06:38 Temperature 98.7 F Pulse Rate 83 Respiratory 18 18 18 Rate Blood Pressure 104/77 Laboratory Tests 06/13/18 06/13/18 07:35 07:35 WBC 6.5 RBC 4.25 Hgb 14.4 Hct 43.3 MCV 101.9 H MCH 33.9 H MCHC 33.3 RDW 15.9 Plt Count 203 D MPV 9.0 Sodium 138 Potassium 4.4 Chloride 100 Carbon Dioxide 32 Anion Gap 6 L BUN 14 Creatinine 0.9 Creat Clearance w eGFR 90.06 Random Glucose 123 H Calcium 8.7 Total Bilirubin 0.7 AST 488 H ALT 719 H Alkaline Phosphatase 134 H Total Protein 8.4 H Albumin 3.7 A:CHRONIC BACK PAIN. PLAN:[place] PATCH DIRECTED.
[2018-06-17] MEDS: LIDOCAINE 5% TOPICAL PATCH TP SCH (16:00)
[2018-06-17] MEDS: THIAMINE HCL 100 MG TABLET (FP) PO SCH (21:24)
[2018-06-17] MEDS: MELATONIN 5 MG TABLETS PO PRN (21:24)
[2018-06-17] MEDS ORDERED: LIDOCAINE PATCH REMOVAL MC SCH (22:00)
[2018-06-18] MEDS ORDERED: METHADONE HCL 40 MG DISPERSABLE TABLET ONE (03:57)
[2018-06-18] MEDS ORDERED: METHADONE HCL 10 MG TABLET ONE (03:57)
[2018-06-18] MEDS: METHADONE 40 MG, METHADONE 20 MG PO SCH (05:54)
[2018-06-18 06:35] VITALS: BP 113/87; PULSE 73; TEMP 97.7
[2018-06-18] MEDS: LIDOCAINE 5% TOPICAL PATCH TP SCH (09:10)
[2018-06-18] MEDS: PRENATAL VITAMINS W/ FOLIC ACID TABLET (FP) PO SCH (09:10)
[2018-06-18] MEDS: HYDROCHLOROTHIAZIDE 25 MG TABLET (FP) PO SCH (09:10)
[2018-06-18] MEDS: LISINOPRIL 20 MG TABLET (FP) PO SCH (09:10)
[2018-06-18] MEDS: ASPIRIN 81 MG CHEWABLE TABLETS PO SCH (09:10)
[2018-06-18] MEDS: NICOTINE 7 MG/24 HOURS TOPICAL PATCH TD SCH (09:11)
--- NOTE | 2018-06-18 14:44 | PN ---
[facility] Progress Note Note: PT COMPLETED REHAB AND DISCHARGED TODAY. PT HAS BEEN REFERRED [facility]. PT REPORTS HE HAS A PCP DR. ODELL AT SAME LOCATION. ALERT O X 3. DENIES S/H/I. Home Medications Medication Instructions Recorded Quetiapine Fumarate [Seroquel] 100 mg PO HS #30 tablet 11/23/16 Aspirin [ASA -] 81 mg PO DAILY #14 tab.chew 06/12/18 Hydrochlorothiazide [Hctz -] 25 mg PO DAILY #14 tablet 06/12/18 Lisinopril 20 mg PO DAILY 30 Days #14 tablet 06/12/18 Vital Signs - 24 hr 06/18/18 06/18/18 06/18/18 00:30 03:30 06:34 Temperature 97.7 F Pulse Rate 73 Respiratory 18 18 18 Rate Blood Pressure 113/87 Laboratory Tests 06/13/18 06/13/18 07:35 07:35 WBC 6.5 RBC 4.25 Hgb 14.4 Hct 43.3 MCV 101.9 H MCH 33.9 H MCHC 33.3 RDW 15.9 Plt Count 203 D MPV 9.0 Sodium 138 Potassium 4.4 Chloride 100 Carbon Dioxide 32 Anion Gap 6 L BUN 14 Creatinine 0.9 Creat Clearance w eGFR 90.06 Random Glucose 123 H Calcium 8.7 Total Bilirubin 0.7 AST 488 H ALT 719 H Alkaline Phosphatase 134 H Total Protein 8.4 H Albumin 3.7 COPY OF LAB RESULT GIVEN TO PATIENT FOR MEDICAL MANAGEMENT FOLLOW UP WITH HIS PCP. NAD MEDICALLY STABLE PLAN:FOLLOW UP WITH CD AFTERCARE RECOMMENDED FOLLOW UP WITH PCP WITHIN 1 WEEK AFTER DISCHARGE.
== END 2018-06-18 09:30 | disposition home or self-care (01) | DRG 772 ==
LOC: YASAS 12:03 → Y5N 12:04
PROVIDERS: ADMIT Neuromusculoskeletal Medicine & OMM; ATTEND Neuromusculoskeletal Medicine & OMM
PROC: HZ42ZZZ Group Counseling for Substance Abuse Treatment, Cognitive-Behavioral (ICD-10-PCS; principal; 2018-06-08)
DX: F10.20 Alcohol dependence, uncomplicated (principal); F11.20 Opioid dependence, uncomplicated; F17.210 Nicotine dependence, cigarettes, uncomplicated; I10 Essential (primary) hypertension; B18.2 Chronic viral hepatitis C; M54.9 Dorsalgia, unspecified; G89.29 Other chronic pain; Z86.69 Personal history of other diseases of the nervous system and sense organs
CPT/HCPCS: 36415; 80053; 85027

== ENCOUNTER 2019-01-07 13:55 | Inpatient (IN) | payer OTHER ==
[2019-01-07 15:25] VITALS: BMI 25.9
--- NOTE | 2019-01-07 17:11 | HP ---
CIWA Score Nausea/Vomitin Muscle Tremors: 4-Moderate,w/Arms Extend Anxiety: 2 Agitation: 2 Paroxysmal Sweats: 2 Orientation: 1-Uncertain about Date Tacttile Disturbances: 2-Mild Itch/Numbness/Burn Auditory Disturbances: 0-None Visual Disturbances: 0-None Headache: 0-None Present CIWA-Ar Total Score: 15 - Admission Criteria OASAS Guidelines: Admission for Medically Managed Detox: Requires at least one of the followin. CIWA greater than 12 2. Seizures within the past 24 hours 3. Delirium tremens within the past 24 hours 4. Hallucinations within the past 24 hours 5. Acute intervention needed for co occurring medical disorder 6. Acute intervention needed for co occurring psychiatric disorder 7. Severe withdrawal that cannot be handled at a lower level of care (continued vomiting, continued diarrhea, abnormal vital signs) requiring intravenous medication and/or fluids 8. Admitting History and Physical - Smoking History Smoking history: Current every day smoker Have you smoked in the past 12 months: Yes Aproximately how many cigarettes per day: 10 - Alcohol/Substance Use Hx Alcohol Use: Yes Admission ROS [facility] - HPI Allergies/Adverse Reactions: Allergies Allergy/AdvReac Type Severity Reaction Status Date / Time Fish Containing Products Allergy Severe Swelling Verified 01/07/19 15:11 No Known Drug Allergies Allergy Verified 02/07/18 11:40 History of Present Illness: pt here requesting detox from etoh use , reports 3-4 pints liquor /day vodka , latest use 3-4 hours ago , current symptoms as above Pt is intoxicated , yudy 0.206 , reports had seizure 2 weeks ago and was taken to [facility]. in [facility] since 8 yrs ago , current daily dose 40 mg , latest taken today . pmhx : htn , anxiety , hep C no tx . Exam Limitations: Clinical Condition, Intoxication - Ebola screening Have you traveled outside of the country in the last 21 days: No Have you had contact with anyone from an Ebola affected area: No Do you have a fever: No - Review of Systems Constitutional: Loss of Appetite EENT: reports: Other (glasses) Respiratory: reports: No Symptoms reported Cardiac: reports: No Symptoms Reported GI: reports: Nausea : reports: No Symptoms Reported Musculoskeletal: reports: No Symptoms Reported Integumentary: reports: No Symptoms Reported Neuro: reports: See HPI, Numbness (lester feet) Endocrine: reports: No Symptoms Reported Psychiatric: reports: Anxious, Depressed, Disorientated Patient History - Patient Medical History Hx Anemia: No Hx Asthma: No Hx Chronic Obstructive Pulmonary Disease (COPD): No Hx Cancer: No Hx Cardiac Disorders: No Hx Congestive Heart Failure: No Hx Hypertension: Yes Hx Hypercholesterolemia: Yes (ON MEDS) Hx Pacemaker: No HX Cerebrovascular Accident: No Hx Seizures: No Hx Dementia: No Hx Diabetes: No Hx Gastrointestinal Disorders: No Hx Liver Disease: Yes (TX'ED) Hx Genitourinary Disorders: No Hx Sexually Transmitted Disorders: Yes (SYPHILLIS IN 1988) Hx Renal Disease (ESRD): No Hx Thyroid Disease: No Hx Human Immunodeficiency Virus (HIV): No (last 09/26 negative) Hx Hepatitis C: Yes (TX'ED) Hx Depression: No Hx Suicide Attempt: No Hx Bipolar Disorder: Yes Hx Schizophrenia: No - Patient Surgical History Past Surgical History: No Hx Neurologic Surgery: No Hx Cataract Extraction: No Hx Cardiac Surgery: No Hx Lung Surgery: No Hx Breast Surgery: No Hx Breast Biopsy: No Hx Abdominal Surgery: No Hx Appendectomy: No Hx Cholecystectomy: No Hx Genitourinary Surgery: No Hx Section: No Hx Orthopedic Surgery: No Hx Hysterectomy: No Anesthesia Reaction: No - PPD History Results: NEG CXR 11/23/16 - Smoking Cessation Smoking history: Current every day smoker Have you smoked in the past 12 months: Yes Aproximately how many cigarettes per day: 10 Cigars Per Day: 0 Hx Chewing Tobacco Use: No Initiated information on smoking cessation: Yes 'Breaking Loose' booklet given: 01/07/19 - Substances abused Alcohol Substance route: Oral Frequency: Daily Amount used: 4 pints of Vodka Age of first use: 17 Date of last use: 01/07/19 Admission Physical Exam BHS - Vital Signs Vital Signs: Vital Signs - 24 hr 01/07/19 01/07/19 15:15 16:57 Temperature 98.7 F 98.7 F Pulse Rate 100 H 100 H Respiratory 18 18 Rate Blood Pressure 158/96 158/96 - Physical General Appearance: Yes: Disheveled, Mild Distress, Alcohol on Breath, Intoxicated, Anxious HEENTM: Yes: EOMI, Hearing grossly Normal, Normocephalic, Normal Voice Respiratory: Yes: Chest Non-Tender, Lungs Clear, Normal Breath Sounds, No Respiratory Distress, No Accessory Muscle Use Neck: Yes: No masses,lesions,Nodules, Trachea in good position Cardiology: Yes: Regular Rhythm, Regular Rate, S1, S2, Tachycardia Abdominal: Yes: Normal Bowel Sounds, Soft Musculoskeletal: Yes: Other (unsteady gait) Extremities: Yes: Normal Range of Motion, Non-Tender, Tremors, Pedal Edema Neurological: Yes: Fully Oriented, Alert, Motor Strength 5/5, Normal Mood/Affect , Normal Response Integumentary: Yes: Warm, Other (lester hands edema) - Diagnostic (1) Alcohol intoxication Current Visit: Yes Status: Chronic Qualifiers: Complication of substance-induced condition: uncomplicated Qualified Code(s ): F10.920 - Alcohol use, unspecified with intoxication, uncomplicated (2) Opioid dependence on agonist therapy Current Visit: Yes Status: Chronic (3) Nicotine dependence Current Visit: No Status: Chronic Qualifiers: Nicotine product type: cigarettes Substance use status: uncomplicated Qualified Code(s): F17.210 - Nicotine dependence, cigarettes, uncomplicated Breathalyzer - Breathalyzer Breathalyzer: 0.206 Urine Drug Screen - Test Device Lot number: [id number] Expiration date: 09/08/20 - Control Is test valid?: Yes - Results Drug screen NEGATIVE: No Urine drug screen results: MTD-Methadone, BZO-Benzodiazepines Inpatient Rehab Admission - Rehab Decision to Admit Inpatient rehab admission?: No
[2019-01-07] MEDS ORDERED: MAG HYDROX/AL HYDROX/SIMETH 30 ML UNIT-DOSE CUP PO PRN (17:22)
[2019-01-07] MEDS ORDERED: MENTHOL/PHENOL 1 EACH UD MM PRN (17:22)
[2019-01-07] MEDS ORDERED: PROCHLORPERAZINE MALEATE 5 MG TABLET PO PRN (17:22)
[2019-01-07] MEDS ORDERED: METHOCARBAMOL 500 MG TABLET PO PRN (17:22)
[2019-01-07] MEDS ORDERED: MAGNESIUM CITRATE 300 ML BOTTLE PO PRN (17:22)
[2019-01-07] MEDS ORDERED: MELATONIN 5 MG TABLETS PO PRN (17:22)
[2019-01-07] MEDS ORDERED: hydrOXYzine PAMOATE 25 MG CAPSULE (FP) PO PRN (17:22)
[2019-01-07] MEDS ORDERED: MAGNESIUM HYDROX 2400MG/30ML ORAL SUSPENSION 30 ML CUP PO PRN (17:22)
[2019-01-07] MEDS ORDERED: ACETAMINOPHEN 325 MG TABLET (FP) PO PRN ×2 (17:22)
[2019-01-07] MEDS ORDERED: BISMUTH SUBSALICYLATE 524 MG/30 ML UD PO PRN (17:22)
[2019-01-07] MEDS ORDERED: IBUPROFEN 400 MG TABLET (FP) PO PRN (17:22)
[2019-01-07] MEDS: ASPIRIN 81 MG CHEWABLE TABLETS PO SCH (18:11)
[2019-01-07] MEDS: LISINOPRIL 20 MG TABLET (FP) PO SCH (18:11)
[2019-01-07] MEDS: chlordiazePOXIDE HCL 25 MG CAPSULE PO PRN (18:12)
[2019-01-07] MEDS: THIAMINE HCL 100 MG TABLET (FP) PO SCH (22:14)
[2019-01-07] MEDS: chlordiazePOXIDE HCL 25 MG CAPSULE PO SCH (22:14)
[2019-01-08] MEDS: chlordiazePOXIDE HCL 25 MG CAPSULE PO SCH ×4 (05:24→22:05)
[2019-01-08 09:58] LABS: HEMATOCRIT 35.2 % (35.4-49); HEMOGLOBIN 11.6 GM/dL (11.7-16.9); MCH 34.6 pg (25.7-33.7); MCHC 33.1 g/dl (32.0-35.9); MEAN CELL VOLUME 104.6 fl (80-96); MEAN PLT VOLUME 9.2 fl (7.5-11.1); PLATELET COUNT 118 K/MM3 (134-434); RBC 3.36 M/mm3 (4.00-5.60); RDW 15.7 % (11.9-15.9); WHITE BLOOD COUNT 4.5 K/mm3 (4.0-10.0)
[2019-01-08] MEDS: HYDROCHLOROTHIAZIDE 25 MG TABLET (FP) PO SCH (09:58)
[2019-01-08] MEDS: LISINOPRIL 20 MG TABLET (FP) PO SCH (09:58)
[2019-01-08] MEDS: PRENATAL VITAMINS W/ FOLIC ACID TABLET (FP) PO SCH (09:58)
[2019-01-08] MEDS: ASPIRIN 81 MG CHEWABLE TABLETS PO SCH (09:58)
[2019-01-08] MEDS ORDERED: METHADONE HCL 40 MG DISPERSABLE TABLET PO ONE (10:00)
[2019-01-08] MEDS ORDERED: METHADONE HCL 10 MG TABLET PO ONE (10:00)
[2019-01-08 10:19] LABS: ALBUMIN 2.8 g/dl (3.4-5.0); BILIRUBIN,TOTAL 0.6 mg/dL (0.2-1); BLOOD UREA NITROGEN 5.1 mg/dL (7-18); CALCIUM 7.9 mg/dL (8.5-10.1); CREATININE 0.6 mg/dL (0.55-1.3); POTASSIUM 3.4 mmol/L (3.5-5.1); TOT PROT 7.6 g/dl (6.4-8.2)
[2019-01-08 11:30] LABS: RPR REACTIVE 1:1 (NONREACTIVE)
[2019-01-08] MEDS ORDERED: cloNIDine HCL 0.1 MG TABLET PO PRN (11:31)
[2019-01-08 11:32] LABS: TREPONEMA ANTIBODY PREVIOUSLY REACTIVE (NONREACTIVE)
--- NOTE | 2019-01-08 11:34 | PN ---
[facility] CIWA - CIWA Score Nausea/Vomitin-Mild Nausea/No Vomiting Muscle Tremors: 4-Moderate,w/Arms Extend Anxiety: 3 Agitation: 2 Paroxysmal Sweats: 1-Minimal Palms Moist Orientation: 0-Oriented Tacttile Disturbances: 1-Very Mild Itch/Numbness Auditory Disturbances: 0-None Visual Disturbances: 0-None Headache: 0-None Present CIWA-Ar Total Score: 12 S Progress Note (SOAP) Subjective: 48 years old male admitted on for alcohol withdrawaql sx management treated with librium detox regimen received methadone 40 mg po today feeling better ate breakfast tolerate food and fluid well Objective: 01/08/19 11:34 Vital Signs Temperature 99.2 F 01/08/19 09:04 Pulse Rate 86 01/08/19 09:04 Respiratory Rate 18 01/08/19 09:04 Blood Pressure 177/104 H 01/08/19 09:04 O2 Sat by Pulse Oximetry (%) Laboratory Last Values WBC 4.5 K/mm3 (4.0-10.0) 01/08/19 08:00 RBC 3.36 M/mm3 (4.00-5.60) L 01/08/19 08:00 Hgb 11.6 GM/dL (11.7-16.9) L 01/08/19 08:00 Hct 35.2 % (35.4-49) L D 01/08/19 08:00 MCV 104.6 fl (80-96) H 01/08/19 08:00 MCH 34.6 pg (25.7-33.7) H 01/08/19 08:00 MCHC 33.1 g/dl (32.0-35.9) 01/08/19 08:00 RDW 15.7 % (11.9-15.9) 01/08/19 08:00 Plt Count 118 K/MM3 (134-434) L D 01/08/19 08:00 MPV 9.2 fl (7.5-11.1) 01/08/19 08:00 Sodium 139 mmol/L (136-145) 01/08/19 08:00 Potassium 3.4 mmol/L (3.5-5.1) L 01/08/19 08:00 Chloride 101 mmol/L (98-107) 01/08/19 08:00 Carbon Dioxide 31 mmol/L (21-32) 01/08/19 08:00 Anion Gap 7 MMOL/L (8-16) L 01/08/19 08:00 BUN 5.1 mg/dL (7-18) L 01/08/19 08:00 Creatinine 0.6 mg/dL (0.55-1.3) 01/08/19 08:00 Est GFR (CKD-EPI)AfAm 137.80 01/08/19 08:00 Est GFR (CKD-EPI)NonAf 118.89 01/08/19 08:00 Random Glucose 103 mg/dL (74-106) 01/08/19 08:00 Calcium 7.9 mg/dL (8.5-10.1) L 01/08/19 08:00 Total Bilirubin 0.6 mg/dL (0.2-1) 01/08/19 08:00 AST 134 U/L (15-37) H 01/08/19 08:00 ALT 77 U/L (13-61) H 01/08/19 08:00 Alkaline Phosphatase 189 U/L (45-117) H 01/08/19 08:00 Total Protein 7.6 g/dl (6.4-8.2) 01/08/19 08:00 Albumin 2.8 g/dl (3.4-5.0) L 01/08/19 08:00 RPR Titer Reactive 1:1 (NONREACTIVE) H 01/08/19 08:00 T.pallidum Ab (MHA) Previously reactive (NONREACTIVE) 01/08/19 08:00 lab noted low K+ low Ca++ history of syphilis treated Assessment: 01/08/19 11:38 alcohol withdrawal sx Plan: continue librium detox regimen
[2019-01-08] MEDS ORDERED: POTASSIUM CHLORIDE TABS 20 MEQ TABLET.ER (FP) PO SCH (11:45)
[2019-01-08] MEDS ORDERED: FLU VACCINE QUAD 60 MCG/0.5 ML (MDV 19-20) IM ONE (12:00)
--- NOTE | 2019-01-08 13:20 | CONSULT ---
[facility] Psychiatric Consult - Data Date of interview: 01/08/19 Admission source: [facility] Identifying data: Readmission to [facility] for this 48 y/o male self- referred for detoxification (alcohol, cocaine, heroin, nicotine). Interviewed at [address] [place] [address]. Patient is single, a father of five, domiciled, unemployed and dependent on food stamps + relatives for financial support (SSI still pending). Substance Abuse History: Discussed with patient. Details in current [facility] report as follows : Smoking history: Current every day smoker. Have you smoked in the past 12 months: Yes. Aproximately how many cigarettes per day: 10. Cigars Per Day: 0. Hx Chewing Tobacco Use: No. Initiated information on smoking cessation : Yes. 'Breaking Loose' booklet given: 01/07/19. - Substances abused. Alcohol. Substance route: Oral. Frequency: Daily. Amount used: 4 pints of Vodka. Age of first use: 17. Date of last use: 01/07/19 Medical History: Remarkable for a history of dyslipidemia, hypertension, hepatitis C and seizure disorder (withdrawal-induced seizures). Noted history of past treatment for syphilis in 1989. Psychiatric History: Patient admits to a distant history of two [facility] hospital[facility] Diagnosed with Panic Disorder, MDD and Anxiety Disorder. Mr Espinoza sees a psychiatrist, Dr Ferrer, at [facility] ( medication management). Patient attends the [facility] program in the [place] (methadone daily dose = 40 mg). No reported history of suicide attempts. Physical/Sexual Abuse/Trauma History: Patient denies. Additional Comment: Urine drug screen results: MTD-Methadone, BZO- Benzodiazepines. Noted. Mental Status Exam - Mental Status Exam Alert and Oriented to: Time, Place, Person Cognitive Function: Good Patient Appearance: Unkempt, Disheveled Mood: Nervous, Withdrawn, Anxious Affect: Mood Congruent, Constricted Patient Behavior: Fatigued, Appropriate, Cooperative Speech Pattern: Clear Voice Loudness: Normal Thought Process: Goal Oriented Thought Disorder: Not Present Hallucinations: Denies Suicidal Ideation: Denies Homicidal Ideation: Denies Insight/Judgement: Poor Sleep: Poorly, Difficulty falling asleep Appetite: Good Muscle strength/Tone: Normal Gait/Station: Normal Psychiatric Findings - Problem List ([place] 1, 2,3) (1) Alcohol dependence with uncomplicated withdrawal Current Visit: Yes Status: Acute (2) Opioid dependence on agonist therapy Current Visit: Yes Status: Chronic (3) Nicotine dependence Current Visit: Yes Status: Chronic Qualifiers: Nicotine product type: cigarettes Substance use status: uncomplicated Qualified Code(s): F17.210 - Nicotine dependence, cigarettes, uncomplicated (4) Substance induced mood disorder Current Visit: Yes Status: Chronic (5) Insomnia Current Visit: Yes Status: Chronic - Initial Treatment Plan Initial Treatment Plan: Psychoeducation. Sleep hygiene. Detoxification. Seroquel 100 mg po hs. Side effects/benefits discussed with the patient. Agreement with care verbalized by patient. Consent granted to MD. Renner.
[2019-01-08] MEDS: POTASSIUM CHLORIDE TABS 20 MEQ TABLET.ER (FP) PO SCH ×2 (14:13→17:38)
[2019-01-08] MEDS: CALCIUM 250MG/VIT-D 125 UNITS 1 COMBO TABLET PO SCH ×2 (14:13→22:04)
[2019-01-08] MEDS: chlordiazePOXIDE HCL 25 MG CAPSULE PO PRN (19:54)
[2019-01-08] MEDS: QUEtiapine FUMARATE 100 MG TABLET (FP) PO SCH (22:04)
[2019-01-08] MEDS: THIAMINE HCL 100 MG TABLET (FP) PO SCH (22:04)
[2019-01-09] MEDS: METHADONE HCL 40 MG DISPERSABLE TABLET PO SCH (05:11)
[2019-01-09] MEDS: chlordiazePOXIDE HCL 25 MG CAPSULE PO SCH ×4 (05:11→22:07)
[2019-01-09] MEDS ORDERED: METHADONE HCL 40 MG DISPERSABLE TABLET PO SCH (06:00)
[2019-01-09] MEDS: HYDROCHLOROTHIAZIDE 25 MG TABLET (FP) PO SCH (10:06)
[2019-01-09] MEDS: CALCIUM 250MG/VIT-D 125 UNITS 1 COMBO TABLET PO SCH ×2 (10:06→22:06)
[2019-01-09] MEDS: PRENATAL VITAMINS W/ FOLIC ACID TABLET (FP) PO SCH (10:06)
[2019-01-09] MEDS: ASPIRIN 81 MG CHEWABLE TABLETS PO SCH (10:07)
[2019-01-09] MEDS: LISINOPRIL 20 MG TABLET (FP) PO SCH (10:07)
[2019-01-09 10:44] LABS: POTASSIUM 3.6 mmol/L (3.5-5.1)
--- NOTE | 2019-01-09 11:23 | PN ---
[facility] CIWA - CIWA Score Nausea/Vomitin-Mild Nausea/No Vomiting Muscle Tremors: 3 Anxiety: 3 Agitation: 2 Paroxysmal Sweats: 2 Orientation: 0-Oriented Tacttile Disturbances: 0-None Auditory Disturbances: 1-Very Mild Visual Disturbances: 0-None Headache: 1-Very Mild CIWA-Ar Total Score: 13 S Progress Note (SOAP) Subjective: 48 years old male admitted on 01/07/19 for alcohol withdrawal sx management treated with librium detox regimen patient tolerated well low K+ treated with potassium supplement repeat K+ 3.6 discontinue K+ supplement discuss lisinopril induced possible low K+ patient agrees to follow up with primary care provider Objective: 01/09/19 11:26 Vital Signs Temperature 98.5 F 01/09/19 09:08 Pulse Rate 94 H 01/09/19 09:08 Respiratory Rate 20 01/09/19 09:08 Blood Pressure 116/83 01/09/19 09:08 O2 Sat by Pulse Oximetry (%) Laboratory Last Values WBC 4.5 K/mm3 (4.0-10.0) 01/08/19 08:00 RBC 3.36 M/mm3 (4.00-5.60) L 01/08/19 08:00 Hgb 11.6 GM/dL (11.7-16.9) L 01/08/19 08:00 Hct 35.2 % (35.4-49) L D 01/08/19 08:00 MCV 104.6 fl (80-96) H 01/08/19 08:00 MCH 34.6 pg (25.7-33.7) H 01/08/19 08:00 MCHC 33.1 g/dl (32.0-35.9) 01/08/19 08:00 RDW 15.7 % (11.9-15.9) 01/08/19 08:00 Plt Count 118 K/MM3 (134-434) L D 01/08/19 08:00 MPV 9.2 fl (7.5-11.1) 01/08/19 08:00 Sodium 139 mmol/L (136-145) 01/08/19 08:00 Potassium 3.6 mmol/L (3.5-5.1) 01/09/19 08:00 Chloride 101 mmol/L (98-107) 01/08/19 08:00 Carbon Dioxide 31 mmol/L (21-32) 01/08/19 08:00 Anion Gap 7 MMOL/L (8-16) L 01/08/19 08:00 BUN 5.1 mg/dL (7-18) L 01/08/19 08:00 Creatinine 0.6 mg/dL (0.55-1.3) 01/08/19 08:00 Est GFR (CKD-EPI)AfAm 137.80 01/08/19 08:00 Est GFR (CKD-EPI)NonAf 118.89 01/08/19 08:00 Random Glucose 103 mg/dL (74-106) 01/08/19 08:00 Calcium 7.9 mg/dL (8.5-10.1) L 01/08/19 08:00 Total Bilirubin 0.6 mg/dL (0.2-1) 01/08/19 08:00 AST 135 U/L (15-37) H 01/09/19 08:00 ALT 77 U/L (13-61) H 01/08/19 08:00 Alkaline Phosphatase 189 U/L (45-117) H 01/08/19 08:00 Total Protein 7.6 g/dl (6.4-8.2) 01/08/19 08:00 Albumin 2.8 g/dl (3.4-5.0) L 01/08/19 08:00 RPR Titer Reactive 1:1 (NONREACTIVE) H 01/08/19 08:00 T.pallidum Ab (MHA) Previously reactive (NONREACTIVE) 01/08/19 08:00 lab noted 01/09/19 11:27 continue Ca++ supplement Assessment: 01/09/19 11:27 alcohol withdrawal sx Plan: continue librium detox regimen
[2019-01-09] MEDS: QUEtiapine FUMARATE 100 MG TABLET (FP) PO SCH (22:06)
[2019-01-09] MEDS: THIAMINE HCL 100 MG TABLET (FP) PO SCH (22:06)
[2019-01-10] MEDS ORDERED: chlordiazePOXIDE HCL 10 MG CAPSULE PO PRN
[2019-01-10] MEDS: chlordiazePOXIDE HCL 10 MG CAPSULE PO SCH ×4 (05:46→22:02)
[2019-01-10] MEDS: METHADONE HCL 40 MG DISPERSABLE TABLET PO SCH (05:46)
--- NOTE | 2019-01-10 08:46 | PN ---
[facility] CIWA - CIWA Score Nausea/Vomitin-No Nausea/No Vomiting Muscle Tremors: 2 Anxiety: 3 Agitation: 2 Paroxysmal Sweats: 2 Orientation: 0-Oriented Tacttile Disturbances: 2-Mild Itch/Numbness/Burn Auditory Disturbances: 0-None Visual Disturbances: 0-None Headache: 0-None Present CIWA-Ar Total Score: 11 [facility] Progress Note (SOAP) Subjective: c/o anxious, interrupted sleep, chills Objective: 01/10/19 08:46 Vital Signs Temperature 98.7 F 01/10/19 06:29 Pulse Rate 99 H 01/10/19 06:29 Respiratory Rate 16 01/10/19 06:29 Blood Pressure 127/87 01/10/19 06:29 O2 Sat by Pulse Oximetry (%) Laboratory Last Values WBC 4.5 K/mm3 (4.0-10.0) 01/08/19 08:00 RBC 3.36 M/mm3 (4.00-5.60) L 01/08/19 08:00 Hgb 11.6 GM/dL (11.7-16.9) L 01/08/19 08:00 Hct 35.2 % (35.4-49) L D 01/08/19 08:00 MCV 104.6 fl (80-96) H 01/08/19 08:00 MCH 34.6 pg (25.7-33.7) H 01/08/19 08:00 MCHC 33.1 g/dl (32.0-35.9) 01/08/19 08:00 RDW 15.7 % (11.9-15.9) 01/08/19 08:00 Plt Count 118 K/MM3 (134-434) L D 01/08/19 08:00 MPV 9.2 fl (7.5-11.1) 01/08/19 08:00 Sodium 139 mmol/L (136-145) 01/08/19 08:00 Potassium 3.6 mmol/L (3.5-5.1) 01/09/19 08:00 Chloride 101 mmol/L (98-107) 01/08/19 08:00 Carbon Dioxide 31 mmol/L (21-32) 01/08/19 08:00 Anion Gap 7 MMOL/L (8-16) L 01/08/19 08:00 BUN 5.1 mg/dL (7-18) L 01/08/19 08:00 Creatinine 0.6 mg/dL (0.55-1.3) 01/08/19 08:00 Est GFR (CKD-EPI)AfAm 137.80 01/08/19 08:00 Est GFR (CKD-EPI)NonAf 118.89 01/08/19 08:00 Random Glucose 103 mg/dL (74-106) 01/08/19 08:00 Calcium 7.9 mg/dL (8.5-10.1) L 01/08/19 08:00 Total Bilirubin 0.6 mg/dL (0.2-1) 01/08/19 08:00 AST 135 U/L (15-37) H 01/09/19 08:00 ALT 77 U/L (13-61) H 01/08/19 08:00 Alkaline Phosphatase 189 U/L (45-117) H 01/08/19 08:00 Total Protein 7.6 g/dl (6.4-8.2) 01/08/19 08:00 Albumin 2.8 g/dl (3.4-5.0) L 01/08/19 08:00 RPR Titer Reactive 1:1 (NONREACTIVE) H 01/08/19 08:00 T.pallidum Ab (MHA) Previously reactive (NONREACTIVE) 01/08/19 08:00 Assessment: 01/10/19 11:12 Aox3 no acute distress ambulating in the unit withdrawal sx Plan: increase fluids continue detox continue to monitor
[2019-01-10] MEDS: CALCIUM 250MG/VIT-D 125 UNITS 1 COMBO TABLET PO SCH ×2 (10:04→22:02)
[2019-01-10] MEDS: ASPIRIN 81 MG CHEWABLE TABLETS PO SCH (10:05)
[2019-01-10] MEDS: HYDROCHLOROTHIAZIDE 25 MG TABLET (FP) PO SCH (10:05)
[2019-01-10] MEDS: LISINOPRIL 20 MG TABLET (FP) PO SCH (10:05)
[2019-01-10] MEDS: PRENATAL VITAMINS W/ FOLIC ACID TABLET (FP) PO SCH (10:05)
[2019-01-10] MEDS: QUEtiapine FUMARATE 100 MG TABLET (FP) PO SCH (22:02)
[2019-01-10] MEDS: THIAMINE HCL 100 MG TABLET (FP) PO SCH (22:02)
[2019-01-11] MEDS: chlordiazePOXIDE HCL 10 MG CAPSULE PO SCH ×2 (05:22→17:44)
[2019-01-11] MEDS: METHADONE HCL 40 MG DISPERSABLE TABLET PO SCH (05:22)
[2019-01-11 09:48] LABS: BASO % 0.2 % (0-2.0); EOS % 1.7 % (0-4.5); HEMATOCRIT 37.4 % (35.4-49); HEMOGLOBIN 12.6 GM/dL (11.7-16.9); LYMPH % 30.7 % (8-40); MCH 35.3 pg (25.7-33.7); MCHC 33.6 g/dl (32.0-35.9); MEAN CELL VOLUME 105.1 fl (80-96); MEAN PLT VOLUME 9.5 fl (7.5-11.1); NEUT % 59.4 % (42.8-82.8); PLATELET COUNT 113 K/MM3 (134-434); RBC 3.56 M/mm3 (4.00-5.60); RDW 15.9 % (11.9-15.9); WHITE BLOOD COUNT 6.7 K/mm3 (4.0-10.0)
[2019-01-11] MEDS: CALCIUM 250MG/VIT-D 125 UNITS 1 COMBO TABLET PO SCH ×2 (10:07→21:20)
[2019-01-11] MEDS: PRENATAL VITAMINS W/ FOLIC ACID TABLET (FP) PO SCH (10:07)
[2019-01-11] MEDS: LISINOPRIL 20 MG TABLET (FP) PO SCH (10:07)
[2019-01-11] MEDS: HYDROCHLOROTHIAZIDE 25 MG TABLET (FP) PO SCH (10:07)
[2019-01-11] MEDS: ASPIRIN 81 MG CHEWABLE TABLETS PO SCH (10:07)
--- NOTE | 2019-01-11 11:00 | PN ---
S CIWA - CIWA Score Nausea/Vomitin-No Nausea/No Vomiting Muscle Tremors: None Anxiety: 2 Agitation: 0-Normal Activity Paroxysmal Sweats: 1-Minimal Palms Moist Orientation: 0-Oriented Tacttile Disturbances: 0-None Auditory Disturbances: 0-None Visual Disturbances: 0-None Headache: 0-None Present CIWA-Ar Total Score: 3 [facility] Progress Note (SOAP) Subjective: c/o mild sweats and anxiety. Objective: 01/11/19 10:57 Vital Signs 01/11/19 01/11/19 01/11/19 03:30 06:07 09:00 Temperature 96.7 F L 96.4 F L Pulse Rate 80 87 Respiratory 18 18 18 Rate Blood Pressure 123/78 130/88 Lab Results WBC 6.7 K/mm3 (4.0-10.0) 01/11/19 07:45 RBC 3.56 M/mm3 (4.00-5.60) L 01/11/19 07:45 Hgb 12.6 GM/dL (11.7-16.9) 01/11/19 07:45 Hct 37.4 % (35.4-49) 01/11/19 07:45 MCV 105.1 fl (80-96) H 01/11/19 07:45 MCHC 33.6 g/dl (32.0-35.9) 01/11/19 07:45 RDW 15.9 % (11.9-15.9) 01/11/19 07:45 Plt Count 113 K/MM3 (134-434) L 01/11/19 07:45 Sodium 139 mmol/L (136-145) 01/08/19 08:00 Potassium 3.6 mmol/L (3.5-5.1) 01/09/19 08:00 Chloride 101 mmol/L (98-107) 01/08/19 08:00 Carbon Dioxide 31 mmol/L (21-32) 01/08/19 08:00 Anion Gap 7 MMOL/L (8-16) L 01/08/19 08:00 BUN 5.1 mg/dL (7-18) L 01/08/19 08:00 Creatinine 0.6 mg/dL (0.55-1.3) 01/08/19 08:00 Random Glucose 103 mg/dL (74-106) 01/08/19 08:00 Calcium 7.9 mg/dL (8.5-10.1) L 01/08/19 08:00 Labs noted. Assessment: 01/11/19 10:59 AOX3, in no acute respiratory distress. Full ROM, ambulating in the unit. Withdrawal symptoms. Plan: continue detox.
[2019-01-11 15:02] LABS: ANISOCYTOSIS 2+; MACROCYTOSIS 1+; PLATELET ESTIMATE DECREASED
[2019-01-11] MEDS: THIAMINE HCL 100 MG TABLET (FP) PO SCH (21:20)
[2019-01-11] MEDS: QUEtiapine FUMARATE 100 MG TABLET (FP) PO SCH (21:20)
[2019-01-12] MEDS ORDERED: chlordiazePOXIDE HCL 10 MG CAPSULE PO ONE (05:00)
[2019-01-12] MEDS: METHADONE HCL 40 MG DISPERSABLE TABLET PO SCH (05:25)
[2019-01-12 06:03] VITALS: BP 125/82; PULSE 85; TEMP 98.8
--- NOTE | 2019-01-12 07:16 | PN ---
S Progress Note Note: Psychiatry Attending's note : Repeat EKG (01/11/19) : Prolonged QT. Discussed with medical RECREATION THERAPY TEACHER. Seroquel is discontinued. Patient made aware.
--- NOTE | 2019-01-12 10:53 | DS ---
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 has not assessed nor evaluated the patient - Physical Exam Results Vital Signs: Vital Signs Temperature 98.8 F 01/12/19 06:03 Pulse Rate 85 01/12/19 06:03 Respiratory Rate 18 01/12/19 06:03 Blood Pressure 125/82 01/12/19 06:03 O2 Sat by Pulse Oximetry (%) Pertinent Admission Physical Exam Findings: alcohol withdrawal sx Laboratory Last Values WBC 6.7 K/mm3 (4.0-10.0) 01/11/19 07:45 RBC 3.56 M/mm3 (4.00-5.60) L 01/11/19 07:45 Hgb 12.6 GM/dL (11.7-16.9) 01/11/19 07:45 Hct 37.4 % (35.4-49) 01/11/19 07:45 MCV 105.1 fl (80-96) H 01/11/19 07:45 MCH 35.3 pg (25.7-33.7) H 01/11/19 07:45 MCHC 33.6 g/dl (32.0-35.9) 01/11/19 07:45 RDW 15.9 % (11.9-15.9) 01/11/19 07:45 Plt Count 113 K/MM3 (134-434) L 01/11/19 07:45 MPV 9.5 fl (7.5-11.1) 01/11/19 07:45 Absolute Neuts (auto) 4.0 K/mm3 (1.5-8.0) 01/11/19 07:45 Neutrophils % 59.4 % (42.8-82.8) D 01/11/19 07:45 Lymphocytes % 30.7 % (8-40) D 01/11/19 07:45 Monocytes % 8.0 % (3.8-10.2) 01/11/19 07:45 Eosinophils % 1.7 % (0-4.5) 01/11/19 07:45 Basophils % 0.2 % (0-2.0) 01/11/19 07:45 Nucleated RBC % 0 % (0-0) 01/11/19 07:45 Hypochromia 0 01/11/19 07:45 Platelet Estimate Decreased 01/11/19 07:45 Platelet Comment Present 01/11/19 07:45 Polychromasia 2+ 01/11/19 07:45 Poikilocytosis 1+ 01/11/19 07:45 Anisocytosis 2+ 01/11/19 07:45 Microcytosis 0 01/11/19 07:45 Macrocytosis 1+ 01/11/19 07:45 Sodium 139 mmol/L (136-145) 01/08/19 08:00 Potassium 3.6 mmol/L (3.5-5.1) 01/09/19 08:00 Chloride 101 mmol/L (98-107) 01/08/19 08:00 Carbon Dioxide 31 mmol/L (21-32) 01/08/19 08:00 Anion Gap 7 MMOL/L (8-16) L 01/08/19 08:00 BUN 5.1 mg/dL (7-18) L 01/08/19 08:00 Creatinine 0.6 mg/dL (0.55-1.3) 01/08/19 08:00 Est GFR (CKD-EPI)AfAm 137.80 01/08/19 08:00 Est GFR (CKD-EPI)NonAf 118.89 01/08/19 08:00 Random Glucose 103 mg/dL (74-106) 01/08/19 08:00 Calcium 7.9 mg/dL (8.5-10.1) L 01/08/19 08:00 Total Bilirubin 0.6 mg/dL (0.2-1) 01/08/19 08:00 AST 135 U/L (15-37) H 01/09/19 08:00 ALT 77 U/L (13-61) H 01/08/19 08:00 Alkaline Phosphatase 189 U/L (45-117) H 01/08/19 08:00 Total Protein 7.6 g/dl (6.4-8.2) 01/08/19 08:00 Albumin 2.8 g/dl (3.4-5.0) L 01/08/19 08:00 RPR Titer Reactive 1:1 (NONREACTIVE) H 01/08/19 08:00 T.pallis[place]ana Ab (MHA) Previously reactive (NONREACTIVE) 01/08/19 08:00 lab noted patient left the detox unit around 7 am today - Medication Discharge Medications: Ambulatory Orders Quetiapine Fumarate [Seroquel -] 100 mg PO HS #30 tablet 11/23/16 Aspirin [ASA -] 81 mg PO DAILY #14 tab.chew 06/12/18 Hydrochlorothiazide [Hctz -] 25 mg PO DAILY #14 tablet 06/12/18 Lisinopril 20 mg PO DAILY 30 Days #14 tablet 06/12/18 - Diagnosis (1) Alcohol dependence with uncomplicated withdrawal Status: Acute (2) HTN (hypertension) Status: Chronic Qualifiers: Hypertension type: essential hypertension Qualified Code(s): I10 - Essential (primary) hypertension - AMA Did Patient Leave Against Medical Advice: No
--- NOTE | 2019-01-13 11:04 | EKG ---
Test Reason : Blood Pressure : / mmHG Vent. Rate : 084 BPM Atrial Rate : 084 BPM P-R Int : 148 ms QRS Dur : 096 ms QT Int : 444 ms P-R-T Axes : 033 -31 -24 degrees QTc Int : 524 ms NORMAL SINUS RHYTHM LEFT AXIS DEVIATION VOLTAGE CRITERIA FOR LEFT VENTRICULAR HYPERTROPHY PROLONGED QT ABNORMAL ECG WHEN COMPARED WITH ECG OF 04-JUN-2018 18:34, NO SIGNIFICANT CHANGE WAS FOUND Confirmed by BALDO LOYD, CHETAN ([id number]) on 01/13/2019 11:04:28 AM Referred By: Confirmed By:CHETAN BLAND MD
== END 2019-01-12 06:50 | disposition home or self-care (01) | DRG 773 ==
LOC: YASAS 13:55 → Y3N 17:36
PROVIDERS: ADMIT Allergy & Immunology; ATTEND Allergy & Immunology
PROC: HZ2ZZZZ Detoxification Services for Substance Abuse Treatment (ICD-10-PCS; principal; 2019-01-07)
DX: F10.230 Alcohol dependence with withdrawal, uncomplicated (principal); F10.220 Alcohol dependence with intoxication, uncomplicated; F11.20 Opioid dependence, uncomplicated; F17.210 Nicotine dependence, cigarettes, uncomplicated; F19.24 Other psychoactive substance dependence with psychoactive substance-induced mood disorder; I10 Essential (primary) hypertension; G47.00 Insomnia, unspecified; E78.5 Hyperlipidemia, unspecified; R00.0 Tachycardia, unspecified; Z87.438 Personal history of other diseases of male genital organs; Z86.19 Personal history of other infectious and parasitic diseases; Z86.69 Personal history of other diseases of the nervous system and sense organs; Z91.013 Allergy to seafood
CPT/HCPCS: 36415; 80053; 84132; 84450; 85025; 85027; 86593; 86780; 93005; 93010; J0735; Q2036

== ENCOUNTER 2019-02-07 11:24 | Inpatient (IN) | payer OTHER ==
[2019-02-07 11:54] VITALS: BMI 27.0
--- NOTE | 2019-02-07 12:10 | HP ---
CIWA Score Nausea/Vomitin Muscle Tremors: 3 Anxiety: 3 Agitation: 3 Paroxysmal Sweats: 1-Minimal Palms Moist Orientation: 0-Oriented Tacttile Disturbances: 1-Very Mild Itch/Numbness Auditory Disturbances: 0-None Visual Disturbances: 0-None Headache: 3-Moderate CIWA-Ar Total Score: 16 - Admission Criteria OASAS Guidelines: Admission for Medically Managed Detox: Requires at least one of the followin. CIWA greater than 12 2. Seizures within the past 24 hours 3. Delirium tremens within the past 24 hours 4. Hallucinations within the past 24 hours 5. Acute intervention needed for co occurring medical disorder 6. Acute intervention needed for co occurring psychiatric disorder 7. Severe withdrawal that cannot be handled at a lower level of care (continued vomiting, continued diarrhea, abnormal vital signs) requiring intravenous medication and/or fluids 8. Admitting History and Physical - Admission Chief Complaint: " I want to stop drinking. I don't want to " History of Present Illness: 48 year old male with alcohol dependence with withdrawals. He is drinking 3-4 pints daily until blackout and he had a blackout 4 days ago. He reports withdrawal seizures 7 months ago. He was in detox 2 months ago and relapsed 3 weeks after that. He smokes 1/2 ppd of ciggarettes daily for many years. PMH: HTN, HCV Disease untreated as yet, HLD Psurg: None Psych: Anxiety Disorder, Insomnia has had buspar in the past and seroquel but does not take it regularly. He lives with girlfriend or family when necessary. He has poor support systems. He has no legal issues pending. History Source: Patient Limitations to Obtaining History: No Limitations - Past Medical History Cardiovascular: Yes: HTN Psych: Yes: Anxiety, Other (insomnia) - Past Surgical History Past Surgical History: Yes: None - Advance Directives Advance Directives: No: Living Will, Health Care Proxy, DNR - Smoking History Smoking history: Current every day smoker Have you smoked in the past 12 months: Yes Aproximately how many cigarettes per day: 10 - Alcohol/Substance Use Hx Alcohol Use: Yes (3-4 pints of vodka daily) - Social History Usual Living Arrangement: Yes: With Significant Other Do you think of yourself as: Straight/Heterosexual ADL: Independent 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, 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 History of Recent Travel: No Admission ROS BHS - HPI Allergies/Adverse Reactions: Allergies Allergy/AdvReac Type Severity Reaction Status Date / Time Fish Containing Products Allergy Severe Swelling Verified 02/07/19 11:48 No Known Drug Allergies Allergy Verified 02/07/19 11:48 Exam Limitations: No Limitations - Ebola screening Have you traveled outside of the country in the last 21 days: No Have you had contact with anyone from an Ebola affected area: No Have you been sick,other than usual withdrawal symptoms: No Do you have a fever: No - Review of Systems Constitutional: Chills, Diaphoresis EENT: reports: No Symptoms Reported Respiratory: reports: No Symptoms reported Cardiac: reports: No Symptoms Reported GI: reports: No Symptoms Reported : reports: No Symptoms Reported Musculoskeletal: reports: Back Pain Integumentary: reports: No Symptoms Reported Neuro: reports: Headache, Tremors Endocrine: reports: No Symptoms Reported Hematology: reports: No Symptoms Reported Psychiatric: reports: Judgement Intact, Mood/Affect Appropiate, Orientated x3 Other Systems: Reviewed and Negative Patient History - Patient Medical History Hx Anemia: No Hx Asthma: No Hx Chronic Obstructive Pulmonary Disease (COPD): No Hx Cancer: No Hx Cardiac Disorders: No Hx Congestive Heart Failure: No Hx Hypertension: Yes Hx Hypercholesterolemia: Yes (ON MEDS) Hx Pacemaker: No HX Cerebrovascular Accident: No Hx Seizures: No Hx Dementia: No Hx Diabetes: No Hx Gastrointestinal Disorders: No Hx Liver Disease: Yes (TX'ED) Hx Genitourinary Disorders: No Hx Sexually Transmitted Disorders: Yes (SYPHILLIS IN 1988) Hx Renal Disease (ESRD): No Hx Thyroid Disease: No Hx Human Immunodeficiency Virus (HIV): No (last 09/26 negative) Hx Hepatitis C: Yes (TX'ED) Hx Depression: No Hx Suicide Attempt: No Hx Bipolar Disorder: Yes Hx Schizophrenia: No - Patient Surgical History Past Surgical History: No Hx Neurologic Surgery: No Hx Cataract Extraction: No Hx Cardiac Surgery: No Hx Lung Surgery: No Hx Breast Surgery: No Hx Breast Biopsy: No Hx Abdominal Surgery: No Hx Appendectomy: No Hx Cholecystectomy: No Hx Genitourinary Surgery: No Hx Section: No Hx Orthopedic Surgery: No Hx Hysterectomy: No Anesthesia Reaction: No - PPD History Previous Implant?: No Documented Results: Positive w/proof Results: NEG CXR 11/23/16 PPD to be Administered?: No - Smoking Cessation Smoking history: Current every day smoker Have you smoked in the past 12 months: Yes Aproximately how many cigarettes per day: 10 Cigars Per Day: 0 Hx Chewing Tobacco Use: No Initiated information on smoking cessation: Yes 'Breaking Loose' booklet given: 02/07/19 - Substances abused Alcohol Substance route: Oral Frequency: Daily Amount used: 3-4 pints of vodka Age of first use: 17 Date of last use: 02/06/19 Admission Physical Exam S - Vital Signs Vital Signs: Vital Signs - 24 hr 02/07/19 11:48 Temperature 96.6 F L Pulse Rate 134 H Respiratory 20 Rate Blood Pressure 173/102 H - Physical General Appearance: Yes: Moderate Distress, Alcohol on Breath, Irritable, Sweating, Anxious HEENTM: Yes: EOMI, Hearing grossly Normal, Normal ENT Inspection, Normocephalic , Normal Voice, HUMBERTO, Pharynx Normal, Tm's normal Respiratory: Yes: Chest Non-Tender, Lungs Clear, Normal Breath Sounds, No Respiratory Distress, No Accessory Muscle Use Neck: Yes: No masses,lesions,Nodules, Supple, Trachea in good position Breast: Yes: Within Normal Limits Cardiology: Yes: Regular Rhythm, S1, S2, Tachycardia Abdominal: Yes: Soft, Increased Bowel Sounds, Protuberent, Distended, Tenderness (right upper quadrant), Hepatomegaly Genitourinary: Yes: Within Normal Limits Back: Yes: Normal Inspection Musculoskeletal: Yes: full range of Motion, Gait Steady Extremities: Yes: Normal Capillary Refill, Normal Inspection, Normal Range of Motion, Non-Tender, Swelling Neurological: Yes: director of provider relations II-XII NML intact, Fully Oriented, Alert, Motor Strength 5/5, Normal Mood/Affect, Normal Response Integumentary: Yes: Normal Color, Warm Lymphatic: Yes: Within Normal Limits - Diagnostic (1) Alcohol dependence with uncomplicated withdrawal Current Visit: No Status: Acute (2) Positive RPR test Current Visit: Yes Status: Acute (3) Alcohol dependence with uncomplicated intoxication Current Visit: Yes Status: Chronic (4) HTN (hypertension) Current Visit: Yes Status: Chronic Qualifiers: Hypertension type: essential hypertension Qualified Code(s): I10 - Essential (primary) hypertension (5) Hepatitis C Current Visit: Yes Status: Chronic Qualifiers: Viral hepatitis chronicity: unspecified (6) Hyperlipidemia Current Visit: Yes Status: Chronic Qualifiers: Hyperlipidemia type: unspecified Qualified Code(s): E78.5 - Hyperlipidemia , unspecified (7) Insomnia Current Visit: Yes Status: Chronic (8) Methadone maintenance therapy patient Current Visit: Yes Status: Chronic Comment: LAST DOSE (45 MG): 01/04/16. VERIFY TOMORROW, AM. (9) Nicotine dependence Current Visit: Yes Status: Chronic Qualifiers: Nicotine product type: cigarettes Substance use status: uncomplicated Qualified Code(s): F17.210 - Nicotine dependence, cigarettes, uncomplicated (10) PPD positive Current Visit: Yes Status: Chronic Cleared for Admission S - Detox or Rehab [facility] Level of Care: Medically Managed Detox Regimen/Protocol: Not Applicable (ativan detox protol) Claeared for Rehab Admission: No Screened but not Admitted - Documentation of Visit Screened but not Admitted: No Breathalyzer - Breathalyzer Breathalyzer: 0.206 Vital Signs - Vital Signs Vital signs refused: No Urine Drug Screen - Test Device Lot number: [id number] Expiration date: 09/08/20 - Control Is test valid?: Yes - Results Drug screen NEGATIVE: No Urine drug screen results: MTD-Methadone, BZO-Benzodiazepines Inpatient Rehab Admission - Rehab Decision to Admit Inpatient rehab admission?: No
[2019-02-07] MEDS ORDERED: ACETAMINOPHEN 325 MG TABLET (FP) PO PRN ×2 (12:17)
[2019-02-07] MEDS ORDERED: MAGNESIUM CITRATE 300 ML BOTTLE PO PRN (12:17)
[2019-02-07] MEDS ORDERED: MENTHOL/PHENOL 1 EACH UD MM PRN (12:17)
[2019-02-07] MEDS ORDERED: BISMUTH SUBSALICYLATE 524 MG/30 ML UD PO PRN (12:17)
[2019-02-07] MEDS ORDERED: MAG HYDROX/AL HYDROX/SIMETH 30 ML UNIT-DOSE CUP PO PRN (12:17)
[2019-02-07] MEDS ORDERED: IBUPROFEN 400 MG TABLET (FP) PO PRN (12:17)
[2019-02-07] MEDS ORDERED: METHOCARBAMOL 500 MG TABLET PO PRN (12:17)
[2019-02-07] MEDS ORDERED: MAGNESIUM HYDROX 2400MG/30ML ORAL SUSPENSION 30 ML CUP PO PRN (12:17)
[2019-02-07] MEDS ORDERED: hydrOXYzine PAMOATE 25 MG CAPSULE (FP) PO PRN (12:17)
[2019-02-07] MEDS: LORazepam 1 MG TABLET PO PRN (13:30)
--- NOTE | 2019-02-07 13:41 | CONSULT ---
[facility] Psychiatric Consult - Data Date of interview: 02/07/19 Admission source: [facility] Identifying data: This is one of multiple admissions to [facility] for this 48 y/ o male self-referred for detoxification (DEAN issues : alcohol, cocaine , heroin, nicotine). Interviewed at [address] [place] [address]. Patient is single, a father of five , domiciled, unemployed and dependent on food stamps + relatives for financial support. Substance Abuse History: Discussed in session. Details in current [facility] report as follows : Smoking history: Current every day smoker. Have you smoked in the past 12 months: Yes. Aproximately how many cigarettes per day: 10. Cigars Per Day: 0. Hx Chewing Tobacco Use: No. Initiated information on smoking cessation : Yes. 'Breaking Loose' booklet given: 02/07/19. - Substances abused. Alcohol. Substance route: Oral. Frequency: Daily. Amount used: 3-4 pints of vodka. Age of first use: 17. Date of last use: 02/06/19 Medical History: Medical profile is remarkable for a history of dyslipidemia, hypertension, hepatitis C and seizure disorder (withdrawal-induced seizures). Noted history of past treatment for syphilis in 1989. Psychiatric History: Patient admits to a distant history of two psychiatric hospitalizations (both at [facility] [place]). Diagnosed with Panic Disorder , MDD and Anxiety Disorder (since 2008). Mr Espinoza reports that he has not seen his psychiatrist, Dr Ferrer, at [facility] for more than four months (patient did not show up for appointments). He admits to non-adherence to medications ( except for methadone) for several months. " I don't drnk, use drugs and take medications at the same time ". Patient attends [facility] in the [place] (methadone daily dose = 40 mg). Denies history of suicide attempts. Physical/Sexual Abuse/Trauma History: Patient denies. Additional Comment: Urine drug screen results: MTD-Methadone, BZO- Benzodiazepines. Noted. Mental Status Exam - Mental Status Exam Alert and Oriented to: Time, Place, Person Cognitive Function: Good Patient Appearance: Unkempt, Disheveled Mood: Withdrawn, Anxious Affect: Mood Congruent, Constricted Patient Behavior: Fatigued, Appropriate, Cooperative Speech Pattern: Clear Voice Loudness: Normal Thought Process: Intact, Goal Oriented Thought Disorder: Not Present Hallucinations: Denies Suicidal Ideation: Denies Homicidal Ideation: Denies Insight/Judgement: Poor Sleep: Poorly, Difficulty falling asleep Appetite: Good Muscle strength/Tone: Normal (no complaint offered) Gait/Station: Normal Psychiatric Findings - Problem List ([place] 1, 2,3) (1) Alcohol dependence with uncomplicated withdrawal Current Visit: Yes Status: Acute (2) Opioid dependence on agonist therapy Current Visit: Yes Status: Chronic (3) Nicotine dependence Current Visit: Yes Status: Chronic Qualifiers: Nicotine product type: cigarettes Substance use status: uncomplicated Qualified Code(s): F17.210 - Nicotine dependence, cigarettes, uncomplicated (4) Substance induced mood disorder Current Visit: Yes Status: Chronic (5) History of anxiety disorder Current Visit: Yes Status: Chronic (6) Insomnia Current Visit: Yes Status: Chronic (7) Non-compliance Current Visit: Yes Status: Chronic - Initial Treatment Plan Initial Treatment Plan: Psychoeducation. Sleep hygiene. Detoxification. AA/NA meetings. Seroquel 50 mg po hs (patient's request). Side effects/benfits discussed with the patient. Mr Espinoza is in agreement with this plan of care. Observation.
[2019-02-07 14:21] LABS: HEMATOCRIT 36.3 % (35.4-49); HEMOGLOBIN 12.2 GM/dL (11.7-16.9); MCH 34.9 pg (25.7-33.7); MCHC 33.7 g/dl (32.0-35.9); MEAN CELL VOLUME 103.7 fl (80-96); MEAN PLT VOLUME 9.2 fl (7.5-11.1); PLATELET COUNT 159 K/MM3 (134-434); RDW 16.4 % (11.9-15.9)
[2019-02-07 14:27] LABS: ALBUMIN 3.5 g/dl (3.4-5.0); BILIRUBIN,TOTAL 0.6 mg/dL (0.2-1); BLOOD UREA NITROGEN 6.1 mg/dL (7-18); CALCIUM 8.5 mg/dL (8.5-10.1); CREATININE 0.7 mg/dL (0.55-1.3); POTASSIUM 3.5 mmol/L (3.5-5.1); TOT PROT 8.8 g/dl (6.4-8.2)
[2019-02-07] MEDS: NICOTINE 14 MG/24 HOURS TOPICAL PATCH TD SCH (14:31)
[2019-02-07] MEDS: HYDROCHLOROTHIAZIDE 25 MG TABLET (FP) PO SCH (14:32)
[2019-02-07] MEDS: LISINOPRIL 20 MG TABLET (FP) PO SCH (14:32)
[2019-02-07] MEDS: ASPIRIN 81 MG CHEWABLE TABLETS PO SCH (14:32)
[2019-02-07] MEDS: LORazepam 2 MG TABLET PO SCH ×2 (17:30→22:03)
[2019-02-07] MEDS: THIAMINE HCL 100 MG TABLET (FP) PO SCH (22:03)
[2019-02-07] MEDS: QUEtiapine FUMARATE 50 MG TABLET PO SCH (22:03)
[2019-02-08] MEDS: LORazepam 2 MG TABLET PO SCH ×4 (05:37→22:15)
[2019-02-08] MEDS ORDERED: NICOTINE 14 MG/24 HOURS TOPICAL PATCH TD SCH (10:00)
[2019-02-08] MEDS ORDERED: LISINOPRIL 20 MG TABLET (FP) PO SCH (10:00)
[2019-02-08] MEDS ORDERED: ASPIRIN 81 MG CHEWABLE TABLETS PO SCH (10:00)
[2019-02-08] MEDS ORDERED: PRENATAL VITAMINS W/ FOLIC ACID TABLET (FP) PO SCH (10:00)
[2019-02-08] MEDS ORDERED: HYDROCHLOROTHIAZIDE 25 MG TABLET (FP) PO SCH (10:00)
[2019-02-08] MEDS: HYDROCHLOROTHIAZIDE 25 MG TABLET (FP) PO SCH (10:39)
[2019-02-08] MEDS: PRENATAL VITAMINS W/ FOLIC ACID TABLET (FP) PO SCH (10:39)
[2019-02-08] MEDS: LISINOPRIL 20 MG TABLET (FP) PO SCH (10:39)
[2019-02-08] MEDS: ASPIRIN 81 MG CHEWABLE TABLETS PO SCH (10:39)
--- NOTE | 2019-02-08 11:01 | PN ---
[facility] Progress Note Note: Methadone dose 40mg po daily verified by Tami Ambriz RN with Hunter Salcedo LPN at [facility] [phone]. Last dose on 02/07/2019. EKG showed prolonged QTc of 512. Will give 10mg po daily and monitor EKG. Importance of change in treatment regimen discussed with pt. Pt verbalized understanding. EKG to be repeated prior to discharge. Pt denies any chest pain, palpitations, or sob at the moment.
--- NOTE | 2019-02-08 11:51 | PN ---
S CIWA - CIWA Score Nausea/Vomitin-No Nausea/No Vomiting Muscle Tremors: 2 Anxiety: 3 Agitation: 0-Normal Activity Paroxysmal Sweats: 3 Orientation: 0-Oriented Tacttile Disturbances: 0-None Auditory Disturbances: 0-None Visual Disturbances: 0-None Headache: 2-Mild CIWA-Ar Total Score: 10 S Progress Note (SOAP) Subjective: c/o sweats, headache, anxiety, and shakes. Objective: 02/08/19 11:50 Vital Signs 02/08/19 02/08/19 02/08/19 06:34 07:19 09:18 Temperature 98.7 F 97.9 F Pulse Rate 89 81 87 Respiratory 18 18 Rate Blood Pressure 166/104 H 161/89 149/86 Laboratory Last Values WBC 4.0 K/mm3 (4.0-10.0) 02/07/19 12:10 RBC 3.50 M/mm3 (4.00-5.60) L 02/07/19 12:10 Hgb 12.2 GM/dL (11.7-16.9) 02/07/19 12:10 Hct 36.3 % (35.4-49) 02/07/19 12:10 MCV 103.7 fl (80-96) H 02/07/19 12:10 MCH 34.9 pg (25.7-33.7) H 02/07/19 12:10 MCHC 33.7 g/dl (32.0-35.9) 02/07/19 12:10 RDW 16.4 % (11.9-15.9) H 02/07/19 12:10 Plt Count 159 K/MM3 (134-434) D 02/07/19 12:10 MPV 9.2 fl (7.5-11.1) 02/07/19 12:10 Sodium 139 mmol/L (136-145) 02/07/19 12:10 Potassium 3.5 mmol/L (3.5-5.1) 02/07/19 12:10 Chloride 104 mmol/L (98-107) 02/07/19 12:10 Carbon Dioxide 30 mmol/L (21-32) 02/07/19 12:10 Anion Gap 6 MMOL/L (8-16) L 02/07/19 12:10 BUN 6.1 mg/dL (7-18) L 02/07/19 12:10 Creatinine 0.7 mg/dL (0.55-1.3) 02/07/19 12:10 Est GFR (CKD-EPI)AfAm 129.34 02/07/19 12:10 Est GFR (CKD-EPI)NonAf 111.59 02/07/19 12:10 Random Glucose 127 mg/dL (74-106) H 02/07/19 12:10 Calcium 8.5 mg/dL (8.5-10.1) 02/07/19 12:10 Total Bilirubin 0.6 mg/dL (0.2-1) 02/07/19 12:10 AST 127 U/L (15-37) H 02/07/19 12:10 ALT 133 U/L (13-61) H 02/07/19 12:10 Alkaline Phosphatase 167 U/L (45-117) H 02/07/19 12:10 Total Protein 8.8 g/dl (6.4-8.2) H 02/07/19 12:10 Albumin 3.5 g/dl (3.4-5.0) 02/07/19 12:10 Labs noted. Assessment: 02/08/19 11:51 AOX3, in no acute respiratory distress. Full ROM, ambulating in the unit. withdrawal symptoms. Plan: continue detox.
[2019-02-08] MEDS: METHADONE HCL 10 MG TABLET PO SCH (12:13)
[2019-02-08] MEDS: NICOTINE 14 MG/24 HOURS TOPICAL PATCH TD SCH (12:15)
[2019-02-08] MEDS: LORazepam 1 MG TABLET PO PRN (14:20)
[2019-02-08] MEDS: QUEtiapine FUMARATE 50 MG TABLET PO SCH (22:14)
[2019-02-08] MEDS: THIAMINE HCL 100 MG TABLET (FP) PO SCH (22:15)
[2019-02-08] MEDS: MELATONIN 5 MG TABLETS PO PRN (22:16)
[2019-02-09] MEDS: LORazepam 1 MG TABLET PO SCH ×4 (05:19→22:27)
[2019-02-09] MEDS: METHADONE HCL 10 MG TABLET PO SCH (05:19)
[2019-02-09] MEDS: LORazepam 1 MG TABLET PO PRN ×3 (08:40→18:57)
[2019-02-09] MEDS: PRENATAL VITAMINS W/ FOLIC ACID TABLET (FP) PO SCH (10:26)
[2019-02-09] MEDS: HYDROCHLOROTHIAZIDE 25 MG TABLET (FP) PO SCH (10:26)
[2019-02-09] MEDS: LISINOPRIL 20 MG TABLET (FP) PO SCH (10:26)
[2019-02-09] MEDS: ASPIRIN 81 MG CHEWABLE TABLETS PO SCH (10:26)
[2019-02-09] MEDS: NICOTINE 14 MG/24 HOURS TOPICAL PATCH TD SCH (10:28)
--- NOTE | 2019-02-09 11:50 | PN ---
[facility] CIWA - CIWA Score Nausea/Vomitin-No Nausea/No Vomiting Muscle Tremors: 2 Anxiety: 2 Agitation: 1-Slight > Activity Paroxysmal Sweats: No Perspiration Orientation: 0-Oriented Tacttile Disturbances: 0-None Auditory Disturbances: 0-None Visual Disturbances: 0-None Headache: 0-None Present CIWA-Ar Total Score: 5 S Progress Note (SOAP) Subjective: 48 years old male admitted on 02/07/19 for alcohol withdrawal sx management treated with ativan detox regimen patient tolerated well ate breakfast discuss aftercare with staff Objective: 02/09/19 11:47 Vital Signs Temperature 99.2 F 02/09/19 09:11 Pulse Rate 98 H 02/09/19 09:11 Respiratory Rate 20 02/09/19 09:11 Blood Pressure 123/85 02/09/19 09:11 O2 Sat by Pulse Oximetry (%) Laboratory Last Values WBC 4.0 K/mm3 (4.0-10.0) 02/07/19 12:10 RBC 3.50 M/mm3 (4.00-5.60) L 02/07/19 12:10 Hgb 12.2 GM/dL (11.7-16.9) 02/07/19 12:10 Hct 36.3 % (35.4-49) 02/07/19 12:10 MCV 103.7 fl (80-96) H 02/07/19 12:10 MCH 34.9 pg (25.7-33.7) H 02/07/19 12:10 MCHC 33.7 g/dl (32.0-35.9) 02/07/19 12:10 RDW 16.4 % (11.9-15.9) H 02/07/19 12:10 Plt Count 159 K/MM3 (134-434) D 02/07/19 12:10 MPV 9.2 fl (7.5-11.1) 02/07/19 12:10 Sodium 139 mmol/L (136-145) 02/07/19 12:10 Potassium 3.5 mmol/L (3.5-5.1) 02/07/19 12:10 Chloride 104 mmol/L (98-107) 02/07/19 12:10 Carbon Dioxide 30 mmol/L (21-32) 02/07/19 12:10 Anion Gap 6 MMOL/L (8-16) L 02/07/19 12:10 BUN 6.1 mg/dL (7-18) L 02/07/19 12:10 Creatinine 0.7 mg/dL (0.55-1.3) 02/07/19 12:10 Est GFR (CKD-EPI)AfAm 129.34 02/07/19 12:10 Est GFR (CKD-EPI)NonAf 111.59 02/07/19 12:10 Random Glucose 127 mg/dL (74-106) H 02/07/19 12:10 Calcium 8.5 mg/dL (8.5-10.1) 02/07/19 12:10 Total Bilirubin 0.6 mg/dL (0.2-1) 02/07/19 12:10 AST 127 U/L (15-37) H 02/07/19 12:10 ALT 133 U/L (13-61) H 02/07/19 12:10 Alkaline Phosphatase 167 U/L (45-117) H 02/07/19 12:10 Total Protein 8.8 g/dl (6.4-8.2) H 02/07/19 12:10 Albumin 3.5 g/dl (3.4-5.0) 02/07/19 12:10 lab noted glucose and ast elevation 02/09/19 11:54 patient agrees to bringing lab report to community care provider for follow up Assessment: 02/09/19 11:55 alcohol withdrawal sx Plan: continue ativan detox regimen
[2019-02-09] MEDS: THIAMINE HCL 100 MG TABLET (FP) PO SCH (22:27)
[2019-02-09] MEDS: QUEtiapine FUMARATE 50 MG TABLET PO SCH (22:27)
[2019-02-10] MEDS ORDERED: LORazepam 0.5 MG TABLET PO PRN
[2019-02-10] MEDS: LORazepam 0.5 MG TABLET PO SCH ×4 (05:53→22:07)
[2019-02-10] MEDS: METHADONE HCL 10 MG TABLET PO SCH (05:53)
[2019-02-10] MEDS: ASPIRIN 81 MG CHEWABLE TABLETS PO SCH (10:19)
[2019-02-10] MEDS: HYDROCHLOROTHIAZIDE 25 MG TABLET (FP) PO SCH (10:19)
[2019-02-10] MEDS: LISINOPRIL 20 MG TABLET (FP) PO SCH (10:19)
[2019-02-10] MEDS: PRENATAL VITAMINS W/ FOLIC ACID TABLET (FP) PO SCH (10:20)
[2019-02-10] MEDS: NICOTINE 14 MG/24 HOURS TOPICAL PATCH TD SCH (11:38)
--- NOTE | 2019-02-10 11:53 | PN ---
S CIWA - CIWA Score Nausea/Vomitin-No Nausea/No Vomiting Muscle Tremors: 1-None Visible, but Wise Anxiety: 1-Mildly Anxious Agitation: 0-Normal Activity Paroxysmal Sweats: No Perspiration Orientation: 0-Oriented Tacttile Disturbances: 0-None Auditory Disturbances: 0-None Visual Disturbances: 0-None Headache: 0-None Present CIWA-Ar Total Score: 2 [facility] Progress Note (SOAP) Subjective: 48 years old male admitted on 02/07/19 for alcohol withdrawal sx management treated with ativan detox regimen feeling better today slept through the night discuss risks of prolong QTc patient states that he was taking methadone daily and joselyn off Objective: 02/10/19 12:19 Vital Signs Temperature 98.3 F 02/10/19 09:00 Pulse Rate 107 H 02/10/19 09:00 Respiratory Rate 20 02/10/19 09:00 Blood Pressure 121/82 02/10/19 09:00 O2 Sat by Pulse Oximetry (%) Laboratory Last Values WBC 4.0 K/mm3 (4.0-10.0) 02/07/19 12:10 RBC 3.50 M/mm3 (4.00-5.60) L 02/07/19 12:10 Hgb 12.2 GM/dL (11.7-16.9) 02/07/19 12:10 Hct 36.3 % (35.4-49) 02/07/19 12:10 MCV 103.7 fl (80-96) H 02/07/19 12:10 MCH 34.9 pg (25.7-33.7) H 02/07/19 12:10 MCHC 33.7 g/dl (32.0-35.9) 02/07/19 12:10 RDW 16.4 % (11.9-15.9) H 02/07/19 12:10 Plt Count 159 K/MM3 (134-434) D 02/07/19 12:10 MPV 9.2 fl (7.5-11.1) 02/07/19 12:10 Sodium 139 mmol/L (136-145) 02/07/19 12:10 Potassium 3.5 mmol/L (3.5-5.1) 02/07/19 12:10 Chloride 104 mmol/L (98-107) 02/07/19 12:10 Carbon Dioxide 30 mmol/L (21-32) 02/07/19 12:10 Anion Gap 6 MMOL/L (8-16) L 02/07/19 12:10 BUN 6.1 mg/dL (7-18) L 02/07/19 12:10 Creatinine 0.7 mg/dL (0.55-1.3) 02/07/19 12:10 Est GFR (CKD-EPI)AfAm 129.34 02/07/19 12:10 Est GFR (CKD-EPI)NonAf 111.59 02/07/19 12:10 Random Glucose 127 mg/dL (74-106) H 02/07/19 12:10 Calcium 8.5 mg/dL (8.5-10.1) 02/07/19 12:10 Total Bilirubin 0.6 mg/dL (0.2-1) 02/07/19 12:10 AST 127 U/L (15-37) H 02/07/19 12:10 ALT 133 U/L (13-61) H 02/07/19 12:10 Alkaline Phosphatase 167 U/L (45-117) H 02/07/19 12:10 Total Protein 8.8 g/dl (6.4-8.2) H 02/07/19 12:10 Albumin 3.5 g/dl (3.4-5.0) 02/07/19 12:10 lab noted ast elevation Assessment: 02/10/19 12:20 alcohol withdrawal sx Plan: continue ativan detox regimen
--- NOTE | 2019-02-10 12:00 | EKG ---
Test Reason : Blood Pressure : / mmHG Vent. Rate : 096 BPM Atrial Rate : 096 BPM P-R Int : 144 ms QRS Dur : 088 ms QT Int : 410 ms P-R-T Axes : 040 -26 -11 degrees QTc Int : 517 ms NORMAL SINUS RHYTHM VOLTAGE CRITERIA FOR LEFT VENTRICULAR HYPERTROPHY PROLONGED QT ABNORMAL ECG WHEN COMPARED WITH ECG OF 08-FEB-2019 10:34, T WAVE VARIATION Confirmed by CHETAN BLAND MD ([id number]) on 02/10/2019 11:59:57 AM Referred By: Confirmed By:CHETAN BLAND MD
--- NOTE | 2019-02-10 12:01 | EKG ---
Test Reason : Blood Pressure : / mmHG Vent. Rate : 086 BPM Atrial Rate : 086 BPM P-R Int : 146 ms QRS Dur : 092 ms QT Int : 428 ms P-R-T Axes : 039 -24 -34 degrees QTc Int : 512 ms NORMAL SINUS RHYTHM VOLTAGE CRITERIA FOR LEFT VENTRICULAR HYPERTROPHY NONSPECIFIC ST AND T WAVE ABNORMALITY PROLONGED QT ABNORMAL ECG WHEN COMPARED WITH ECG OF 11-JAN-2019 13:06, NO SIGNIFICANT CHANGE WAS FOUND Confirmed by BALDO LOYD, CHETAN ([id number]) on 02/10/2019 12:00:52 PM Referred By: YOHANA HASKINS Confirmed By:CHETAN BLAND MD
[2019-02-10] MEDS: QUEtiapine FUMARATE 50 MG TABLET PO SCH (22:07)
[2019-02-10] MEDS: THIAMINE HCL 100 MG TABLET (FP) PO SCH (22:08)
[2019-02-10] MEDS: MELATONIN 5 MG TABLETS PO PRN (22:08)
[2019-02-11] MEDS ORDERED: LORazepam 0.5 MG TABLET PO ONE (05:00)
[2019-02-11] MEDS: METHADONE HCL 10 MG TABLET PO SCH (05:09)
[2019-02-11 09:15] VITALS: BP 155/100; PULSE 103; TEMP 99.9
--- NOTE | 2019-02-11 11:51 | DS ---
[facility] Detox Discharge Summary Admission Date: 02/07/19 Discharge Date: 02/11/19 - History Present History: Alcohol Dependence Additional Comments: 48 years old male admitted on 02/07/19 for alcohol withdrawal sx management treated with ativan detox regimen patient is alert oriented x 3 cardiac s1s2 regular rate rhythm respiratory clear lung bilaterally on auscultation skin warm and dry Pertinent Past History: patient agrees returning to methadone maintenance program for medical mental behavior and psychosocial therapies - Physical Exam Results Vital Signs: Vital Signs Temperature 99.9 F H 02/11/19 09:00 Pulse Rate 103 H 02/11/19 09:00 Respiratory Rate 18 02/11/19 09:00 Blood Pressure 155/100 02/11/19 09:00 O2 Sat by Pulse Oximetry (%) Pertinent Admission Physical Exam Findings: alcohol withdrawal sx Laboratory Last Values WBC 4.0 K/mm3 (4.0-10.0) 02/07/19 12:10 RBC 3.50 M/mm3 (4.00-5.60) L 02/07/19 12:10 Hgb 12.2 GM/dL (11.7-16.9) 02/07/19 12:10 Hct 36.3 % (35.4-49) 02/07/19 12:10 MCV 103.7 fl (80-96) H 02/07/19 12:10 MCH 34.9 pg (25.7-33.7) H 02/07/19 12:10 MCHC 33.7 g/dl (32.0-35.9) 02/07/19 12:10 RDW 16.4 % (11.9-15.9) H 02/07/19 12:10 Plt Count 159 K/MM3 (134-434) D 02/07/19 12:10 MPV 9.2 fl (7.5-11.1) 02/07/19 12:10 Sodium 139 mmol/L (136-145) 02/07/19 12:10 Potassium 3.5 mmol/L (3.5-5.1) 02/07/19 12:10 Chloride 104 mmol/L (98-107) 02/07/19 12:10 Carbon Dioxide 30 mmol/L (21-32) 02/07/19 12:10 Anion Gap 6 MMOL/L (8-16) L 02/07/19 12:10 BUN 6.1 mg/dL (7-18) L 02/07/19 12:10 Creatinine 0.7 mg/dL (0.55-1.3) 02/07/19 12:10 Est GFR (CKD-EPI)AfAm 129.34 02/07/19 12:10 Est GFR (CKD-EPI)NonAf 111.59 02/07/19 12:10 Random Glucose 127 mg/dL (74-106) H 02/07/19 12:10 Calcium 8.5 mg/dL (8.5-10.1) 02/07/19 12:10 Total Bilirubin 0.6 mg/dL (0.2-1) 02/07/19 12:10 AST 127 U/L (15-37) H 02/07/19 12:10 ALT 133 U/L (13-61) H 02/07/19 12:10 Alkaline Phosphatase 167 U/L (45-117) H 02/07/19 12:10 Total Protein 8.8 g/dl (6.4-8.2) H 02/07/19 12:10 Albumin 3.5 g/dl (3.4-5.0) 02/07/19 12:10 lab noted ast elevation discuss alcohol related ast elevation patient agrees to bringing in lab report to [facility] provider for follow up - Treatment Hospital Course: Detox Protocol Followed, Detoxed Safely, Responded well, Discharged Condition Good, Rehab Referral Accepted Patient has Accepted [facility] Referral [facility] - Medication Discharge Medications: Ambulatory Orders Quetiapine Fumarate [Seroquel -] 100 mg PO HS #30 tablet 11/23/16 Aspirin [ASA -] 81 mg PO DAILY #14 tab.chew 06/12/18 Hydrochlorothiazide [Hctz -] 25 mg PO DAILY #14 tablet 06/12/18 Lisinopril 20 mg PO DAILY 30 Days #14 tablet 06/12/18 - Diagnosis (1) Alcohol dependence with uncomplicated withdrawal Status: Acute (2) Positive RPR test Status: Chronic (3) Alcohol dependence with uncomplicated intoxication Status: Acute (4) HTN (hypertension) Status: Chronic Qualifiers: Hypertension type: essential hypertension Qualified Code(s): I10 - Essential (primary) hypertension (5) Hepatitis C Status: Chronic Qualifiers: Viral hepatitis chronicity: carrier Qualified Code(s): B18.2 - Chronic viral hepatitis C (6) Hyperlipidemia Status: Chronic Qualifiers: Hyperlipidemia type: unspecified Qualified Code(s): E78.5 - Hyperlipidemia , unspecified (7) Methadone maintenance therapy patient Status: Chronic (8) Nicotine dependence Status: Acute Qualifiers: Nicotine product type: cigarettes Substance use status: in withdrawal Qualified Code(s): F17.213 - Nicotine dependence, cigarettes, with withdrawal (9) PPD positive Status: Resolved (10) Substance induced mood disorder Status: Suspected - AMA Did Patient Leave Against Medical Advice: No CIWA Score - CIWA Score Nausea/Vomitin-No Nausea/No Vomiting Muscle Tremors: 1-None Visible, but [place] Anxiety: 0-No Anxiety, at Ease Agitation: 0-Normal Activity Paroxysmal Sweats: No Perspiration Orientation: 0-Oriented Tacttile Disturbances: 0-None Auditory Disturbances: 0-None Visual Disturbances: 0-None Headache: 0-None Present CIWA-Ar Total Score: 1
[2019-02-11 15:36] LABS: RPR REACTIVE 1:1 (NONREACTIVE)
[2019-02-11 15:38] LABS: TREPONEMA ANTIBODY PREVIOUSLY REACTIVE (NONREACTIVE)
== END 2019-02-11 09:05 | disposition home or self-care (01) | DRG 773 ==
LOC: YASAS 11:24 → Y3N 12:44
PROVIDERS: ADMIT Allergy & Immunology; ATTEND Allergy & Immunology
PROC: HZ2ZZZZ Detoxification Services for Substance Abuse Treatment (ICD-10-PCS; principal; 2019-02-07)
DX: F10.230 Alcohol dependence with withdrawal, uncomplicated (principal); F10.220 Alcohol dependence with intoxication, uncomplicated; F11.20 Opioid dependence, uncomplicated; F17.210 Nicotine dependence, cigarettes, uncomplicated; F19.24 Other psychoactive substance dependence with psychoactive substance-induced mood disorder; F31.9 Bipolar disorder, unspecified; F41.9 Anxiety disorder, unspecified; G47.00 Insomnia, unspecified; I10 Essential (primary) hypertension; E78.5 Hyperlipidemia, unspecified; B18.2 Chronic viral hepatitis C; R74.0 Nonspecific elevation of levels of transaminase and lactic acid dehydrogenase [LDH]; R73.9 Hyperglycemia, unspecified; Z86.19 Personal history of other infectious and parasitic diseases; R76.11 Nonspecific reaction to tuberculin skin test without active tuberculosis; Z91.013 Allergy to seafood; Z91.19 Patient's noncompliance with other medical treatment and regimen
CPT/HCPCS: 36415; 80053; 85027; 86593; 86780; 93005; 93010

== ENCOUNTER 2019-04-11 10:06 | Inpatient (IN) | payer OTHER ==
[2019-04-11 10:50] VITALS: BMI 26.4
--- NOTE | 2019-04-11 11:34 | HP ---
CIWA Score Nausea/Vomitin Muscle Tremors: 1-None Visible, but [place] Anxiety: 4-Mod. Anxious/Guarded Agitation: 4-Moderately Restless Paroxysmal Sweats: 2 Orientation: 1-Uncertain about Date Tacttile Disturbances: 0-None Auditory Disturbances: 2-Mild Harshness/Frighten Visual Disturbances: 2-Mild Sensitivity Headache: 3-Moderate CIWA-Ar Total Score: 22 - Admission Criteria OASAS Guidelines: Admission for Medically Managed Detox: Requires at least one of the followin. CIWA greater than 12 2. Seizures within the past 24 hours 3. Delirium tremens within the past 24 hours 4. Hallucinations within the past 24 hours 5. Acute intervention needed for co occurring medical disorder 6. Acute intervention needed for co occurring psychiatric disorder 7. Severe withdrawal that cannot be handled at a lower level of care (continued vomiting, continued diarrhea, abnormal vital signs) requiring intravenous medication and/or fluids 8. 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 mlae here requesting detox from etoh use , reports seizure years ago , latest use today current MELIZA 0.269 , here from [facility] . MMTP pt is poor historian 2/2 intoxication PMHX : HTN reports non- compliance w/ BP meds . pharmacy called , latest rx August 2018 Exam Limitations: Clinical Condition, Intoxication - Review of Systems Constitutional: Loss of Appetite EENT: reports: Other (glasses , denies dysphagia) Respiratory: reports: No Symptoms reported Cardiac: reports: No Symptoms Reported GI: reports: See HPI : reports: No Symptoms Reported Musculoskeletal: reports: No Symptoms Reported Integumentary: reports: No Symptoms Reported Neuro: reports: See HPI, Headache Endocrine: reports: No Symptoms Reported Psychiatric: reports: Agitated, Anxious, Depressed, Disorientated Patient History - Patient Medical History Hx Anemia: No Hx Asthma: No Hx Chronic Obstructive Pulmonary Disease (COPD): No Hx Cancer: No Hx Cardiac Disorders: No Hx Congestive Heart Failure: No Hx Hypertension: Yes (on meds) Hx Hypercholesterolemia: Yes (ON MEDS) Hx Pacemaker: No HX Cerebrovascular Accident: No Hx Seizures: No Hx Dementia: No Hx Diabetes: No Hx Gastrointestinal Disorders: No Hx Liver Disease: Yes (TX'ED) Hx Genitourinary Disorders: No Hx Sexually Transmitted Disorders: No Hx Renal Disease (ESRD): No Hx Thyroid Disease: No Hx Human Immunodeficiency Virus (HIV): No (last 09/26 negative) Hx Hepatitis C: Yes (TX'ED) Hx Depression: Yes Hx Suicide Attempt: No Hx Bipolar Disorder: Yes Hx Schizophrenia: No - Patient Surgical History Past Surgical History: No Hx Neurologic Surgery: No Hx Cataract Extraction: No Hx Cardiac Surgery: No Hx Lung Surgery: No Hx Breast Surgery: No Hx Breast Biopsy: No Hx Abdominal Surgery: No Hx Appendectomy: No Hx Cholecystectomy: No Hx Genitourinary Surgery: No Hx Section: No Hx Orthopedic Surgery: No Hx Hysterectomy: No Anesthesia Reaction: No - PPD History Previous Implant?: No Documented Results: Negative w/proof Implanted On Prior R Admission?: No Results: NEG CXR 11/23/16 - Smoking Cessation Smoking history: Current some day smoker Have you smoked in the past 12 months: Yes Aproximately how many cigarettes per day: 8 Cigars Per Day: 0 Hx Chewing Tobacco Use: No Initiated information on smoking cessation: No - Substances abused Alcohol Substance route: Oral Frequency: Daily Amount used: vodka - 2-3 pts Age of first use: 17 Date of last use: 04/11/19 Admission Physical Exam BHS - Vital Signs Vital Signs: Vital Signs - 24 hr 04/11/19 10:47 Temperature 97.6 F Pulse Rate 107 H Respiratory 18 Rate Blood Pressure 153/99 - Physical General Appearance: Yes: Moderate Distress, Intoxicated, Irritable, Anxious HEENTM: Yes: EOMI, Hearing grossly Normal, Normocephalic, Normal Voice Respiratory: Yes: Chest Non-Tender, Lungs Clear, Normal Breath Sounds, No Respiratory Distress, No Accessory Muscle Use Neck: Yes: No masses,lesions,Nodules, Trachea in good position Cardiology: Yes: Regular Rhythm, Regular Rate, S1, S2, Tachycardia Abdominal: Yes: Non Tender, Soft Musculoskeletal: Yes: Other (staggering gait) Extremities: Yes: Normal Range of Motion, Non-Tender, Tremors Neurological: Yes: Alert, Motor Strength 5/5, Disoriented, Depressed Affect Integumentary: Yes: Warm - Diagnostic (1) Nicotine dependence Current Visit: Yes Status: Chronic Qualifiers: Nicotine product type: cigarettes (2) Alcohol intoxication Current Visit: Yes Status: Acute Qualifiers: Complication of substance-induced condition: uncomplicated Qualified Code(s ): F10.920 - Alcohol use, unspecified with intoxication, uncomplicated (3) Opioid dependence on agonist therapy Current Visit: Yes Status: Chronic Breathalyzer - Breathalyzer Breathalyzer: 0.269 Urine Drug Screen - Test Device Lot number: [id number] Expiration date: 01/14/21 - Control Is test valid?: Yes - Results Drug screen NEGATIVE: No Urine drug screen results: MTD-Methadone, BZO-Benzodiazepines Inpatient Rehab Admission - Rehab Decision to Admit Inpatient rehab admission?: No
[2019-04-11] MEDS ORDERED: ACETAMINOPHEN 325 MG TABLET (FP) PO PRN ×2 (11:40)
[2019-04-11] MEDS ORDERED: MELATONIN 5 MG TABLETS PO PRN (11:40)
[2019-04-11] MEDS ORDERED: MAGNESIUM CITRATE 300 ML BOTTLE PO PRN (11:40)
[2019-04-11] MEDS ORDERED: MAG HYDROX/AL HYDROX/SIMETH 30 ML UNIT-DOSE CUP PO PRN (11:40)
[2019-04-11] MEDS ORDERED: IBUPROFEN 400 MG TABLET (FP) PO PRN (11:40)
[2019-04-11] MEDS ORDERED: MENTHOL/PHENOL 1 EACH UD MM PRN (11:40)
[2019-04-11] MEDS ORDERED: BISMUTH SUBSALICYLATE 262 MG/15 ML BTL PO PRN (11:40)
[2019-04-11] MEDS ORDERED: MAGNESIUM HYDROX 2400MG/30ML ORAL SUSPENSION 30 ML CUP PO PRN (11:40)
[2019-04-11] MEDS ORDERED: chlordiazePOXIDE HCL 25 MG CAPSULE PO PRN (11:42)
[2019-04-11] MEDS ORDERED: METOPROLOL TARTRATE 25 MG TABLET (FP) PO ONE (12:22)
[2019-04-11] MEDS: chlordiazePOXIDE HCL 25 MG CAPSULE PO SCH ×3 (13:01→22:09)
[2019-04-11] MEDS: ASPIRIN 81 MG CHEWABLE TABLETS PO SCH (13:01)
[2019-04-11 16:53] LABS: HEMATOCRIT 39.9 % (35.4-49); HEMOGLOBIN 13.4 GM/dL (11.7-16.9); MCH 33.1 pg (25.7-33.7); MCHC 33.7 g/dl (32.0-35.9); MEAN CELL VOLUME 98.2 fl (80-96); MEAN PLT VOLUME 9.3 fl (7.5-11.1); PLATELET COUNT 127 K/MM3 (134-434); RBC 4.06 M/mm3 (4.00-5.60); RDW 15.4 % (11.9-15.9); WHITE BLOOD COUNT 5.2 K/mm3 (4.0-10.0)
[2019-04-11 16:59] LABS: ALBUMIN 3.7 g/dl (3.4-5.0); BILIRUBIN,TOTAL 0.4 mg/dL (0.2-1); BLOOD UREA NITROGEN 12.6 mg/dL (7-18); CALCIUM 8.3 mg/dL (8.5-10.1); CREATININE 0.9 mg/dL (0.55-1.3); POTASSIUM 3.6 mmol/L (3.5-5.1); TOT PROT 9.1 g/dl (6.4-8.2)
[2019-04-11] MEDS: THIAMINE HCL 100 MG TABLET (FP) PO SCH (21:29)
[2019-04-11] MEDS ORDERED: cloNIDine HCL 0.1 MG TABLET PO ONE (23:09)
--- NOTE | 2019-04-11 23:12 | PN ---
S Progress Note Note: Patient's blood pressure is B/P 155/105. Patient is asymptomatic Vital Signs Temperature 97.7 F 04/11/19 21:41 Pulse Rate 79 04/11/19 21:41 Respiratory Rate 19 04/11/19 21:41 Blood Pressure 155/105 H 04/11/19 21:41 O2 Sat by Pulse Oximetry (%) Action: Cloonidine 0.1mg tablet oral ordered
[2019-04-11] MEDS: hydrOXYzine PAMOATE 25 MG CAPSULE (FP) PO PRN (23:59)
[2019-04-12] MEDS: METHADONE HCL 10 MG TABLET PO SCH (05:28)
[2019-04-12] MEDS: chlordiazePOXIDE HCL 25 MG CAPSULE PO SCH ×4 (05:28→22:01)
--- NOTE | 2019-04-12 06:52 | PN ---
S Progress Note Note: Patient's blood pressure is B/P 170/101. Patient is asymptomatic Vital Signs Temperature 97.7 F 04/12/19 06:46 Pulse Rate 70 04/12/19 06:47 Respiratory Rate 18 04/12/19 06:47 Blood Pressure 170/101 H 04/12/19 06:47 O2 Sat by Pulse Oximetry (%) Action: Clonidine 0.1mg tablet oral ordered
[2019-04-12] MEDS ORDERED: cloNIDine HCL 0.1 MG TABLET PO ONE (07:00)
[2019-04-12 08:54] LABS: RPR REACTIVE 1:1 (NONREACTIVE)
[2019-04-12 08:55] LABS: TREPONEMA ANTIBODY PREVIOUSLY REACTIVE (NONREACTIVE)
[2019-04-12] MEDS: ASPIRIN 81 MG CHEWABLE TABLETS PO SCH (10:33)
[2019-04-12] MEDS: PRENATAL VITAMINS W/ FOLIC ACID TABLET (FP) PO SCH (10:33)
[2019-04-12] MEDS: HYDROCHLOROTHIAZIDE 25 MG TABLET (FP) PO SCH (11:32)
[2019-04-12] MEDS: LISINOPRIL 20 MG TABLET (FP) PO SCH (11:32)
--- NOTE | 2019-04-12 14:18 | CONSULT ---
[facility] Psychiatric Consult - Data Date of interview: 04/12/19 Admission source: [facility] Identifying data: Readmission to [address] [place] [address] for this 48 y/o male self- referred for detoxification treatment. DEAN issues : alcohol, cocaine, heroin, nicotine. Patient is single, a father of five, domiciled, unemployed and dependent on food stamps + relatives for financial support. Substance Abuse History: Discussed with the patient. Details in current [facility] report as follows : Smoking history: Current some day smoker. Have you smoked in the past 12 months: Yes. Aproximately how many cigarettes per day: 8. Cigars Per Day: 0. Hx Chewing Tobacco Use: No. Initiated information on smoking cessation: No. - Substances abused. Alcohol. Substance route: Oral. Frequency: Daily. Amount used: vodka - 2-3 pts. Age of first use: 17. Date of last use: 04/11/19 Medical History: Medical profile is remarkable for a history of dyslipidemia, hypertension, hepatitis C and seizure disorder (withdrawal-induced seizures). Noted history of past treatment for syphilis in 1989. Psychiatric History: Remote history of two psychiatric hospitalizations (both at [facility] [place]). Patient has been diagnosed with Panic Disorder, MDD and Anxiety Disorder (since 2008). Mr Alexis reports that he has stopped seeing his psychiatrist, Dr Ferrer, at [facility] He admits to total non-adherence to medications (except for methadone) for several months. Patient attends the [facility] MMTP program in the [place] (methadone daily dose = 30 mg). Denies history of suicide attempts. Physical/Sexual Abuse/Trauma History: Patient denies. Additional Comment: Urine drug screen results: MTD-Methadone, BZO- Benzodiazepines. Noted. Mental Status Exam - Mental Status Exam Alert and Oriented to: Time, Place, Person Cognitive Function: Good Patient Appearance: Well Groomed Mood: Withdrawn, Hopeful Affect: Appropriate, Normal Range Patient Behavior: Fatigued, Appropriate, Cooperative Speech Pattern: Clear, Appropriate Voice Loudness: Normal Thought Process: Goal Oriented Thought Disorder: Not Present Hallucinations: Denies Suicidal Ideation: Denies Homicidal Ideation: Denies Insight/Judgement: Poor Sleep: Well Appetite: Good Gait/Station: Normal Psychiatric Findings - Problem List (Early 1, 2,3) (1) Alcohol dependence with uncomplicated withdrawal Current Visit: Yes Status: Acute (2) Opioid dependence on agonist therapy Current Visit: Yes Status: Chronic (3) Nicotine dependence Current Visit: Yes Status: Chronic Qualifiers: Nicotine product type: cigarettes (4) Non-compliance Current Visit: Yes Status: Chronic - Initial Treatment Plan Initial Treatment Plan: Psychoeducation. Sleep hygiene. Detoxification. Patient declines to resume seroquel. " My problem is drugs and alcohol, I don't have mental illness." AA/NA meetings. Observation.
--- NOTE | 2019-04-12 16:29 | PN ---
[facility] CIWA - CIWA Score Nausea/Vomitin-No Nausea/No Vomiting Muscle Tremors: 3 Anxiety: 4-Mod. Anxious/Guarded Agitation: 2 Paroxysmal Sweats: No Perspiration Orientation: 0-Oriented Tacttile Disturbances: 0-None Auditory Disturbances: 0-None Visual Disturbances: 0-None Headache: 0-None Present CIWA-Ar Total Score: 9 S Progress Note (SOAP) Subjective: Anxiety, Fatigue,Elevated BP- (pt on Lisinopril and Hydrochlorothiazide at home) . Denies Headache,SOB, Dizziness, N/V or C/P. Objective: 04/12/19 16:26 Vital Signs - 24 hr 04/11/19 04/11/19 04/11/19 17:43 21:41 23:13 Temperature 97.7 F 97.7 F Pulse Rate 75 79 77 Respiratory 18 19 17 Rate Blood Pressure 146/96 155/105 H 157/105 H 04/12/19 04/12/19 04/12/19 06:46 06:47 12:21 Temperature 97.7 F 97.7 F Pulse Rate 96 H 70 80 Respiratory 18 18 16 Rate Blood Pressure 171/117 H 170/101 H 150/90 04/12/19 14:39 Temperature 98.6 F Pulse Rate 88 Respiratory 18 Rate Blood Pressure 142/84 Laboratory Tests 04/11/19 04/11/19 04/11/19 12:00 12:00 12:00 WBC 5.2 RBC 4.06 Hgb 13.4 Hct 39.9 MCV 98.2 H MCH 33.1 MCHC 33.7 RDW 15.4 Plt Count 127 L D MPV 9.3 Sodium 142 Potassium 3.6 Chloride 105 Carbon Dioxide 30 Anion Gap 7 L BUN 12.6 Creatinine 0.9 Est GFR (CKD-EPI)AfAm 116.65 Est GFR (CKD-EPI)NonAf 100.64 Random Glucose 113 H Calcium 8.3 L Total Bilirubin 0.4 AST 70 H ALT 56 Alkaline Phosphatase 143 H Total Protein 9.1 H Albumin 3.7 RPR Titer Reactive 1:1 H T.pallidum Ab (MHA) Previously reactive Alert o x3 nad oob ambulating with steady gait Assessment: 04/12/19 16:27 w/s Uncontrolled HTN Plan: cont detox maintain safety Po fluids as tolerated. Reorder Lisinopril 20 mg po daily Hydrochlorothiazide 25 mg po daily
[2019-04-12] MEDS: hydrOXYzine PAMOATE 25 MG CAPSULE (FP) PO PRN (20:25)
[2019-04-12] MEDS: THIAMINE HCL 100 MG TABLET (FP) PO SCH (21:42)
[2019-04-13] MEDS: METHADONE HCL 10 MG TABLET PO SCH (06:06)
[2019-04-13] MEDS: chlordiazePOXIDE HCL 25 MG CAPSULE PO SCH ×2 (06:07→10:11)
[2019-04-13] MEDS: PRENATAL VITAMINS W/ FOLIC ACID TABLET (FP) PO SCH (10:11)
[2019-04-13] MEDS: HYDROCHLOROTHIAZIDE 25 MG TABLET (FP) PO SCH (10:11)
[2019-04-13] MEDS: ASPIRIN 81 MG CHEWABLE TABLETS PO SCH (10:11)
[2019-04-13] MEDS: LISINOPRIL 20 MG TABLET (FP) PO SCH (10:11)
[2019-04-13 14:44] VITALS: BP 109/56; PULSE 88; TEMP 97.1
--- NOTE | 2019-04-13 16:50 | PN ---
S CIWA - CIWA Score Nausea/Vomitin-Mild Nausea/No Vomiting Muscle Tremors: 2 Anxiety: 4-Mod. Anxious/Guarded Agitation: 3 Paroxysmal Sweats: No Perspiration Orientation: 0-Oriented Tacttile Disturbances: 0-None Auditory Disturbances: 0-None Visual Disturbances: 0-None Headache: 2-Mild CIWA-Ar Total Score: 12 BHS Progress Note (SOAP) Subjective: Patient c/o anxiety, feeling restless, nausea and mild shakes. Admitted to detox for alcohol withdrawals. Objective: 04/13/19 16:48 Vital Signs Temperature 97.1 F L 04/13/19 13:00 Pulse Rate 88 04/13/19 13:00 Respiratory Rate 20 04/13/19 13:00 Blood Pressure 109/56 L 04/13/19 13:00 O2 Sat by Pulse Oximetry (%) Laboratory Tests 04/11/19 04/11/19 04/11/19 12:00 12:00 12:00 WBC 5.2 RBC 4.06 Hgb 13.4 Hct 39.9 MCV 98.2 H MCH 33.1 MCHC 33.7 RDW 15.4 Plt Count 127 L D MPV 9.3 Sodium 142 Potassium 3.6 Chloride 105 Carbon Dioxide 30 Anion Gap 7 L BUN 12.6 Creatinine 0.9 Est GFR (CKD-EPI)AfAm 116.65 Est GFR (CKD-EPI)NonAf 100.64 Random Glucose 113 H Calcium 8.3 L Total Bilirubin 0.4 AST 70 H ALT 56 Alkaline Phosphatase 143 H Total Protein 9.1 H Albumin 3.7 RPR Titer Reactive 1:1 H T.pallidum Ab (MHA) Previously reactive Pe alert and oriented x 3 skin warm and dry +perrla, eoms intact bl gi nt, nt ext full rom, amb ad silvia mild tremors anxious, restless 04/13/19 16:49 Assessment: 04/13/19 16:49 ETOH withdrawal symptoms Plan: continue detox encourage oral fluids monitor clinically
--- NOTE | 2019-04-13 16:56 | DS ---
[facility] Detox Discharge Summary Admission Date: 04/11/19 - History Present History: Alcohol Dependence - Physical Exam Results Vital Signs: Vital Signs Temperature 97.1 F L 04/13/19 13:00 Pulse Rate 88 04/13/19 13:00 Respiratory Rate 04/13/19 13:00 Blood Pressure 109/56 L 04/13/19 13:00 O2 Sat by Pulse Oximetry (%) - Medication Discharge Medications: Ambulatory Orders Quetiapine Fumarate [Seroquel -] 100 mg PO HS #30 tablet 11/23/16 Aspirin [ASA -] 81 mg PO DAILY #14 tab.chew 06/12/18 Hydrochlorothiazide [Hctz -] 25 mg PO DAILY #14 tablet 06/12/18 Lisinopril 20 mg PO DAILY 30 Days #14 tablet 06/12/18 - AMA Did Patient Leave Against Medical Advice: Yes
[2019-04-14] MEDS ORDERED: chlordiazePOXIDE HCL 10 MG CAPSULE PO PRN
[2019-04-14] MEDS ORDERED: chlordiazePOXIDE HCL 10 MG CAPSULE PO SCH (05:00)
[2019-04-15] MEDS ORDERED: chlordiazePOXIDE HCL 10 MG CAPSULE PO ONE (05:00)
== END 2019-04-13 15:53 | disposition left against medical advice (07) | DRG 770 ==
LOC: YASAS 10:06 → Y6N 12:00
PROVIDERS: ADMIT Allergy & Immunology; ATTEND Allergy & Immunology
PROC: HZ2ZZZZ Detoxification Services for Substance Abuse Treatment (ICD-10-PCS; principal; 2019-04-11)
DX: F10.230 Alcohol dependence with withdrawal, uncomplicated (principal); F11.20 Opioid dependence, uncomplicated; F17.210 Nicotine dependence, cigarettes, uncomplicated; F41.0 Panic disorder [episodic paroxysmal anxiety]; F41.9 Anxiety disorder, unspecified; F33.9 Major depressive disorder, recurrent, unspecified; I10 Essential (primary) hypertension; E78.5 Hyperlipidemia, unspecified; G47.00 Insomnia, unspecified; Z86.19 Personal history of other infectious and parasitic diseases; Z86.69 Personal history of other diseases of the nervous system and sense organs; Z91.013 Allergy to seafood; Z91.19 Patient's noncompliance with other medical treatment and regimen
CPT/HCPCS: 36415; 80053; 85027; 86593; 86780; J0735

== ENCOUNTER 2021-05-12 15:38 | Inpatient (IN) | payer OTHER ==
[2021-05-12] MEDS ORDERED: guaiFENesin 200 MG/10 ML 10 ML UNIT-DOSE CUPS PO PRN (17:06)
[2021-05-12] MEDS ORDERED: P-EPHED 60MG/TRIPROLIDI 2.5MG TABLET PO PRN (17:06)
[2021-05-12] MEDS ORDERED: MAG HYDROX/AL HYDROX/SIMETH 30 ML UNIT-DOSE CUP PO PRN (17:06)
[2021-05-12] MEDS ORDERED: LOPERAMIDE HCL 2 MG CAPSULE PO PRN (17:06)
[2021-05-12] MEDS ORDERED: ACETAMINOPHEN 325 MG TABLET (FP) PO PRN (17:06)
[2021-05-12] MEDS ORDERED: IBUPROFEN 400 MG TABLET (FP) PO PRN (17:06)
[2021-05-12] MEDS ORDERED: MAGNESIUM HYDROX 2400MG/30ML ORAL SUSPENSION 30 ML CUP PO PRN (17:06)
[2021-05-12] MEDS ORDERED: MAGNESIUM CITRATE 300 ML BOTTLE PO PRN (17:06)
[2021-05-12 17:12] VITALS: BMI 32.5
[2021-05-12] MEDS: ASPIRIN 81 MG CHEWABLE TABLETS PO SCH (18:02)
[2021-05-12] MEDS: HYDROCHLOROTHIAZIDE 25 MG TABLET (FP) PO SCH (18:02)
[2021-05-12] MEDS: LISINOPRIL 20 MG TABLET PO SCH (18:02)
[2021-05-12] MEDS ORDERED: QUEtiapine FUMARATE 50 MG TABLET PO ONE (22:13)
[2021-05-12] MEDS: THIAMINE HCL 100 MG TABLET (FP) PO SCH (22:45)
[2021-05-13 02:37] LABS: URINE APPEARANCE CLEAR; URINE BILIRUBIN NEGATIVE (NEGATIVE); URINE COLOR YELLOW; URINE GLUCOSE (UA) NEGATIVE (NEGATIVE); URINE KETONE NEGATIVE (NEGATIVE); URINE LEUK ESTERASE NEGATIVE (NEGATIVE); URINE NITRITE NEGATIVE (NEGATIVE); URINE PROTEIN NEGATIVE (NEGATIVE)
[2021-05-13] MEDS: PRENATAL VITAMINS W/ FOLIC ACID TABLET (FP) PO SCH (10:21)
[2021-05-13] MEDS: methaDONE HCL 10 MG TABLET PO SCH (10:22)
[2021-05-13] MEDS: HYDROCHLOROTHIAZIDE 25 MG TABLET (FP) PO SCH (10:22)
[2021-05-13] MEDS: ASPIRIN 81 MG CHEWABLE TABLETS PO SCH (10:22)
[2021-05-13] MEDS: LISINOPRIL 20 MG TABLET PO SCH (10:22)
[2021-05-13 12:56] LABS: HEMATOCRIT 36.9 % (35.4-49); HEMOGLOBIN 12.7 GM/dL (11.7-16.9); MCH 31.1 pg (25.7-33.7); MCHC 34.5 g/dl (32.0-35.9); MEAN CELL VOLUME 90.2 fl (80-96); MEAN PLT VOLUME 8.4 fl (7.5-11.1); PLATELET COUNT 110 10^3/uL (134-434); WHITE BLOOD COUNT 4.3 K/mm3 (4.0-10.0)
[2021-05-13 13:12] LABS: CALCIUM 8.9 mg/dL (8.5-10.1)
[2021-05-13 13:13] LABS: ALBUMIN 3.6 g/dl (3.4-5.0); BLOOD UREA NITROGEN 12.2 mg/dL (7-18)
[2021-05-13 13:16] LABS: CREATININE 0.8 mg/dL (0.55-1.3)
[2021-05-13 13:17] LABS: BILIRUBIN,TOTAL 0.4 mg/dL (0.2-1); TOT PROT 7.4 g/dl (6.4-8.2)
[2021-05-13] MEDS: NICOTINE 10 MG CARTRIDGE (INHALER) IH PRN (16:39)
[2021-05-13] MEDS: QUEtiapine FUMARATE 50 MG TABLET PO SCH (21:06)
[2021-05-13] MEDS: THIAMINE HCL 100 MG TABLET (FP) PO SCH (21:07)
[2021-05-14] MEDS: methaDONE HCL 10 MG TABLET PO SCH (06:00)
[2021-05-14] MEDS: NICOTINE 10 MG CARTRIDGE (INHALER) IH PRN ×3 (06:37→21:16)
[2021-05-14] MEDS: LISINOPRIL 20 MG TABLET PO SCH (11:57)
[2021-05-14] MEDS: HYDROCHLOROTHIAZIDE 25 MG TABLET (FP) PO SCH (11:57)
[2021-05-14] MEDS: ASPIRIN 81 MG CHEWABLE TABLETS PO SCH (11:57)
[2021-05-14] MEDS: PRENATAL VITAMINS W/ FOLIC ACID TABLET (FP) PO SCH (11:57)
[2021-05-14] MEDS: QUEtiapine FUMARATE 50 MG TABLET PO SCH (21:16)
[2021-05-14] MEDS: THIAMINE HCL 100 MG TABLET (FP) PO SCH (21:16)
[2021-05-14] MEDS: MELATONIN 5 MG TABLETS PO PRN (21:16)
[2021-05-15] MEDS: methaDONE HCL 10 MG TABLET PO SCH (06:14)
[2021-05-15] MEDS: NICOTINE 10 MG CARTRIDGE (INHALER) IH PRN ×3 (06:14→19:57)
[2021-05-15] MEDS: ASPIRIN 81 MG CHEWABLE TABLETS PO SCH (09:48)
[2021-05-15] MEDS: PRENATAL VITAMINS W/ FOLIC ACID TABLET (FP) PO SCH (09:48)
[2021-05-15] MEDS: LISINOPRIL 20 MG TABLET PO SCH (09:48)
[2021-05-15] MEDS: HYDROCHLOROTHIAZIDE 25 MG TABLET (FP) PO SCH (09:48)
[2021-05-15] MEDS: MELATONIN 5 MG TABLETS PO PRN (21:12)
[2021-05-15] MEDS: THIAMINE HCL 100 MG TABLET (FP) PO SCH (21:12)
[2021-05-15] MEDS: QUEtiapine FUMARATE 50 MG TABLET PO SCH (21:13)
[2021-05-16] MEDS: methaDONE HCL 10 MG TABLET PO SCH (06:06)
[2021-05-16] MEDS: NICOTINE 10 MG CARTRIDGE (INHALER) IH PRN ×5 (06:15→21:06)
[2021-05-16] MEDS: LISINOPRIL 20 MG TABLET PO SCH (09:58)
[2021-05-16] MEDS: PRENATAL VITAMINS W/ FOLIC ACID TABLET (FP) PO SCH (09:58)
[2021-05-16] MEDS: HYDROCHLOROTHIAZIDE 25 MG TABLET (FP) PO SCH (09:58)
[2021-05-16] MEDS: ASPIRIN 81 MG CHEWABLE TABLETS PO SCH (11:11)
[2021-05-16] MEDS: QUEtiapine FUMARATE 50 MG TABLET PO SCH (21:05)
[2021-05-16] MEDS: THIAMINE HCL 100 MG TABLET (FP) PO SCH (21:06)
[2021-05-17 00:08] LABS: SARS-CoV-2 NAA Not Detected (Not Detected)
[2021-05-17] MEDS: NICOTINE 10 MG CARTRIDGE (INHALER) IH PRN ×3 (05:55→19:52)
[2021-05-17] MEDS: methaDONE HCL 10 MG TABLET PO SCH (05:55)
[2021-05-17] MEDS: LISINOPRIL 20 MG TABLET PO SCH (09:57)
[2021-05-17] MEDS: PRENATAL VITAMINS W/ FOLIC ACID TABLET (FP) PO SCH (09:57)
[2021-05-17] MEDS: HYDROCHLOROTHIAZIDE 25 MG TABLET (FP) PO SCH (09:57)
[2021-05-17] MEDS: ASPIRIN 81 MG CHEWABLE TABLETS PO SCH (09:57)
[2021-05-17] MEDS: QUEtiapine FUMARATE 50 MG TABLET PO SCH (21:04)
[2021-05-17] MEDS: MELATONIN 5 MG TABLETS PO PRN (21:04)
[2021-05-17] MEDS: THIAMINE HCL 100 MG TABLET (FP) PO SCH (21:04)
[2021-05-18] MEDS: methaDONE HCL 10 MG TABLET PO SCH (06:04)
[2021-05-18] MEDS: NICOTINE 10 MG CARTRIDGE (INHALER) IH PRN ×5 (06:04→21:04)
[2021-05-18] MEDS: PRENATAL VITAMINS W/ FOLIC ACID TABLET (FP) PO SCH (09:51)
[2021-05-18] MEDS: ASPIRIN 81 MG CHEWABLE TABLETS PO SCH (09:52)
[2021-05-18] MEDS: HYDROCHLOROTHIAZIDE 25 MG TABLET (FP) PO SCH (09:52)
[2021-05-18] MEDS: LISINOPRIL 20 MG TABLET PO SCH (09:52)
[2021-05-18] MEDS: MELATONIN 5 MG TABLETS PO PRN (21:04)
[2021-05-18] MEDS: QUEtiapine FUMARATE 50 MG TABLET PO SCH (21:04)
[2021-05-18] MEDS: THIAMINE HCL 100 MG TABLET (FP) PO SCH (21:04)
[2021-05-19] MEDS: methaDONE HCL 10 MG TABLET PO SCH (06:17)
[2021-05-19] MEDS: NICOTINE 10 MG CARTRIDGE (INHALER) IH PRN ×4 (06:17→21:19)
[2021-05-19] MEDS: PRENATAL VITAMINS W/ FOLIC ACID TABLET (FP) PO SCH (09:48)
[2021-05-19] MEDS: LISINOPRIL 20 MG TABLET PO SCH (09:48)
[2021-05-19] MEDS: ASPIRIN 81 MG CHEWABLE TABLETS PO SCH (09:48)
[2021-05-19] MEDS: HYDROCHLOROTHIAZIDE 25 MG TABLET (FP) PO SCH (09:49)
[2021-05-19] MEDS: MELATONIN 5 MG TABLETS PO PRN (21:19)
[2021-05-19] MEDS: QUEtiapine FUMARATE 50 MG TABLET PO SCH (21:19)
[2021-05-19] MEDS: THIAMINE HCL 100 MG TABLET (FP) PO SCH (21:19)
[2021-05-20] MEDS: NICOTINE 10 MG CARTRIDGE (INHALER) IH PRN ×5 (06:12→21:29)
[2021-05-20] MEDS: methaDONE HCL 10 MG TABLET PO SCH (08:08)
[2021-05-20] MEDS: ASPIRIN 81 MG CHEWABLE TABLETS PO SCH (10:13)
[2021-05-20] MEDS: PRENATAL VITAMINS W/ FOLIC ACID TABLET (FP) PO SCH (10:13)
[2021-05-20] MEDS: HYDROCHLOROTHIAZIDE 25 MG TABLET (FP) PO SCH (10:13)
[2021-05-20] MEDS: LISINOPRIL 20 MG TABLET PO SCH (10:13)
[2021-05-20 11:12] LABS: ALBUMIN 3.7 g/dl (3.4-5.0); CALCIUM 8.6 mg/dL (8.5-10.1)
[2021-05-20 11:13] LABS: BLOOD UREA NITROGEN 13.3 mg/dL (7-18)
[2021-05-20 11:16] LABS: CREATININE 0.9 mg/dL (0.55-1.3)
[2021-05-20 11:18] LABS: BILIRUBIN,TOTAL 0.5 mg/dL (0.2-1); TOT PROT 7.6 g/dl (6.4-8.2)
[2021-05-20] MEDS: QUEtiapine FUMARATE 50 MG TABLET PO SCH (21:29)
[2021-05-20] MEDS: THIAMINE HCL 100 MG TABLET (FP) PO SCH (21:29)
[2021-05-21] MEDS: methaDONE HCL 10 MG TABLET PO SCH (06:16)
[2021-05-21] MEDS: NICOTINE 10 MG CARTRIDGE (INHALER) IH PRN ×5 (06:17→21:03)
[2021-05-21] MEDS: ASPIRIN 81 MG CHEWABLE TABLETS PO SCH (09:48)
[2021-05-21] MEDS: HYDROCHLOROTHIAZIDE 25 MG TABLET (FP) PO SCH (09:48)
[2021-05-21] MEDS: PRENATAL VITAMINS W/ FOLIC ACID TABLET (FP) PO SCH (09:48)
[2021-05-21] MEDS: LISINOPRIL 20 MG TABLET PO SCH (09:48)
[2021-05-21] MEDS: QUEtiapine FUMARATE 50 MG TABLET PO SCH (21:03)
[2021-05-21] MEDS: THIAMINE HCL 100 MG TABLET (FP) PO SCH (21:03)
[2021-05-21] MEDS: MELATONIN 5 MG TABLETS PO PRN (21:04)
[2021-05-22] MEDS: NICOTINE 10 MG CARTRIDGE (INHALER) IH PRN ×5 (05:55→21:00)
[2021-05-22] MEDS: methaDONE HCL 10 MG TABLET PO SCH (05:55)
[2021-05-22] MEDS: HYDROCHLOROTHIAZIDE 25 MG TABLET (FP) PO SCH (09:01)
[2021-05-22] MEDS: ASPIRIN 81 MG CHEWABLE TABLETS PO SCH (09:01)
[2021-05-22] MEDS: PRENATAL VITAMINS W/ FOLIC ACID TABLET (FP) PO SCH (09:01)
[2021-05-22] MEDS: LISINOPRIL 20 MG TABLET PO SCH (09:01)
[2021-05-22] MEDS: QUEtiapine FUMARATE 50 MG TABLET PO SCH (20:59)
[2021-05-22] MEDS: MELATONIN 5 MG TABLETS PO PRN (21:00)
[2021-05-22] MEDS: THIAMINE HCL 100 MG TABLET (FP) PO SCH (21:01)
[2021-05-23] MEDS: NICOTINE 10 MG CARTRIDGE (INHALER) IH PRN ×5 (06:23→21:12)
[2021-05-23] MEDS: methaDONE HCL 10 MG TABLET PO SCH (06:23)
[2021-05-23] MEDS: LISINOPRIL 20 MG TABLET PO SCH (09:46)
[2021-05-23] MEDS: HYDROCHLOROTHIAZIDE 25 MG TABLET (FP) PO SCH (09:46)
[2021-05-23] MEDS: PRENATAL VITAMINS W/ FOLIC ACID TABLET (FP) PO SCH (09:46)
[2021-05-23] MEDS: ASPIRIN 81 MG CHEWABLE TABLETS PO SCH (09:46)
[2021-05-23] MEDS: THIAMINE HCL 100 MG TABLET (FP) PO SCH (21:11)
[2021-05-23] MEDS: MELATONIN 5 MG TABLETS PO PRN (21:11)
[2021-05-23] MEDS: QUEtiapine FUMARATE 50 MG TABLET PO SCH (21:12)
[2021-05-24] MEDS: NICOTINE 10 MG CARTRIDGE (INHALER) IH PRN ×6 (06:14→21:19)
[2021-05-24] MEDS: methaDONE HCL 10 MG TABLET PO SCH (06:14)
[2021-05-24] MEDS: LISINOPRIL 20 MG TABLET PO SCH (10:01)
[2021-05-24] MEDS: HYDROCHLOROTHIAZIDE 25 MG TABLET (FP) PO SCH (10:02)
[2021-05-24] MEDS: ASPIRIN 81 MG CHEWABLE TABLETS PO SCH (10:02)
[2021-05-24] MEDS: PRENATAL VITAMINS W/ FOLIC ACID TABLET (FP) PO SCH (10:02)
[2021-05-24] MEDS: THIAMINE HCL 100 MG TABLET (FP) PO SCH (21:18)
[2021-05-24] MEDS: MELATONIN 5 MG TABLETS PO PRN (21:18)
[2021-05-24] MEDS: QUEtiapine FUMARATE 50 MG TABLET PO SCH (21:18)
[2021-05-25] MEDS: methaDONE HCL 10 MG TABLET PO SCH (06:01)
[2021-05-25] MEDS: NICOTINE 10 MG CARTRIDGE (INHALER) IH PRN ×5 (06:04→21:09)
[2021-05-25] MEDS: PRENATAL VITAMINS W/ FOLIC ACID TABLET (FP) PO SCH (10:04)
[2021-05-25] MEDS: LISINOPRIL 20 MG TABLET PO SCH (10:04)
[2021-05-25] MEDS: HYDROCHLOROTHIAZIDE 25 MG TABLET (FP) PO SCH (10:04)
[2021-05-25] MEDS: ASPIRIN 81 MG CHEWABLE TABLETS PO SCH (10:04)
[2021-05-25] MEDS: MELATONIN 5 MG TABLETS PO PRN (21:09)
[2021-05-25] MEDS: THIAMINE HCL 100 MG TABLET (FP) PO SCH (21:09)
[2021-05-25] MEDS: QUEtiapine FUMARATE 50 MG TABLET PO SCH (21:10)
[2021-05-26] MEDS: methaDONE HCL 10 MG TABLET PO SCH (06:08)
[2021-05-26] MEDS: NICOTINE 10 MG CARTRIDGE (INHALER) IH PRN (06:09)
[2021-05-26 07:09] VITALS: BP 124/81; PULSE 90; TEMP 98.8
[2021-05-26] MEDS: LISINOPRIL 20 MG TABLET PO SCH (09:50)
[2021-05-26] MEDS: ASPIRIN 81 MG CHEWABLE TABLETS PO SCH (09:50)
[2021-05-26] MEDS: HYDROCHLOROTHIAZIDE 25 MG TABLET (FP) PO SCH (09:50)
== END 2021-05-26 09:53 | disposition home or self-care (01) | DRG 772 ==
LOC: YASAS 15:38 → Y3W 22:08
PROVIDERS: ADMIT Allergy & Immunology; ATTEND Allergy & Immunology
PROC: HZ42ZZZ Group Counseling for Substance Abuse Treatment, Cognitive-Behavioral (ICD-10-PCS; principal; 2021-05-12)
DX: F10.20 Alcohol dependence, uncomplicated (principal); F11.20 Opioid dependence, uncomplicated; F17.210 Nicotine dependence, cigarettes, uncomplicated; F19.282 Other psychoactive substance dependence with psychoactive substance-induced sleep disorder; F19.280 Other psychoactive substance dependence with psychoactive substance-induced anxiety disorder; E78.5 Hyperlipidemia, unspecified; G40.509 Epileptic seizures related to external causes, not intractable, without status epilepticus; I10 Essential (primary) hypertension; B18.2 Chronic viral hepatitis C; Z86.19 Personal history of other infectious and parasitic diseases
CPT/HCPCS: 36415; 71045-TC-FY; 80053; 81003; 85027; 86593; 86780; 87811; C9803; U0003; U0005

== ENCOUNTER 2022-01-19 10:23 | Inpatient (IN) | payer OTHER ==
[2022-01-19 12:21] VITALS: BMI 23.7
[2022-01-19] MEDS ORDERED: LOPERAMIDE HCL 2 MG CAPSULE PO PRN (12:29)
[2022-01-19] MEDS ORDERED: MAGNESIUM CITRATE 300 ML BOTTLE PO PRN (12:29)
[2022-01-19] MEDS ORDERED: BISMUTH SUBSALICYLATE 524 MG/30 ML PO PRN (12:29)
[2022-01-19] MEDS ORDERED: ONDANSETRON *ODT* 4 MG TABLET SL PRN (12:29)
[2022-01-19] MEDS ORDERED: IBUPROFEN 400 MG TABLET (FP) PO PRN (12:29)
[2022-01-19] MEDS ORDERED: IBUPROFEN 600 MG TABLET (FP) PO PRN (12:29)
[2022-01-19] MEDS ORDERED: MAG HYDROX/AL HYDROX/SIMETH 30 ML UNIT-DOSE CUP PO PRN (12:29)
[2022-01-19] MEDS ORDERED: METHOCARBAMOL 500 MG TABLET PO PRN (12:29)
[2022-01-19] MEDS ORDERED: MAGNESIUM HYDROX 2400MG/30ML ORAL SUSPENSION 30 ML CUP PO PRN (12:29)
[2022-01-19] MEDS ORDERED: BENZOCAINE/MENTHOL (CHLORASEPTIC ) LOZENGE MM PRN (12:29)
[2022-01-19] MEDS ORDERED: LORazepam 1 MG TABLET PO PRN (12:29)
[2022-01-19] MEDS ORDERED: DICYCLOMINE HCL 10 MG CAPSULE PO PRN (12:29)
[2022-01-19] MEDS ORDERED: NALOXONE HCL (KLOXXADO) 8 MG SPRAY NS PRN (12:29)
[2022-01-19] MEDS ORDERED: ACETAMINOPHEN 325 MG TABLET (FP) PO PRN ×2 (12:29)
[2022-01-19 15:04] LABS: HEMATOCRIT 41.2 % (35.4-49); HEMOGLOBIN 13.9 GM/dL (11.7-16.9); MCH 30.4 pg (25.7-33.7); MCHC 33.7 g/dl (32.0-35.9); MEAN PLT VOLUME 8.1 fl (7.5-11.1); PLATELET COUNT 159 10^3/uL (134-434); RBC 4.58 M/mm3 (4.00-5.60); RDW 15.1 % (11.9-15.9); WHITE BLOOD COUNT 6.6 K/mm3 (4.0-10.0)
[2022-01-19] MEDS: PRENATAL VITAMINS W/ FOLIC ACID TABLET (FP) PO SCH (15:28)
[2022-01-19] MEDS: hydrOXYzine PAMOATE 25 MG CAPSULE (FP) PO PRN ×3 (15:28→22:10)
[2022-01-19 15:34] LABS: ALBUMIN 3.8 g/dl (3.4-5.0); CALCIUM 8.7 mg/dL (8.5-10.1)
[2022-01-19 15:37] LABS: CREATININE 0.9 mg/dL (0.55-1.3)
[2022-01-19 15:39] LABS: BILIRUBIN,TOTAL 0.3 mg/dL (0.2-1); TOT PROT 8.2 g/dl (6.4-8.2)
[2022-01-19] MEDS: LORazepam 2 MG TABLET PO SCH ×2 (18:05→22:10)
[2022-01-19] MEDS: NICOTINE 10 MG CARTRIDGE (INHALER) IH PRN ×2 (20:03→22:10)
[2022-01-19] MEDS: MELATONIN 5 MG TABLETS PO SCH (22:10)
[2022-01-19] MEDS: THIAMINE HCL 100 MG TABLET (FP) PO SCH (22:10)
[2022-01-20] MEDS: LORazepam 2 MG TABLET PO SCH ×4 (06:08→23:07)
[2022-01-20] MEDS ORDERED: methaDONE HCL 40 MG DISPERSABLE TABLET PO ONE (10:00)
[2022-01-20] MEDS: ASPIRIN 81 MG CHEWABLE TABLETS PO SCH (10:08)
[2022-01-20] MEDS: PRENATAL VITAMINS W/ FOLIC ACID TABLET (FP) PO SCH (10:09)
[2022-01-20] MEDS: LISINOPRIL 20 MG TABLET PO SCH (10:09)
[2022-01-20] MEDS: HYDROCHLOROTHIAZIDE 25 MG TABLET (FP) PO SCH (10:09)
[2022-01-20] MEDS: NICOTINE 10 MG CARTRIDGE (INHALER) IH PRN ×2 (10:10→20:24)
[2022-01-20] MEDS ORDERED: QUEtiapine FUMARATE 50 MG TABLET PO SCH (22:00)
[2022-01-20] MEDS: MELATONIN 5 MG TABLETS PO SCH (23:06)
[2022-01-20] MEDS: THIAMINE HCL 100 MG TABLET (FP) PO SCH (23:07)
[2022-01-21] MEDS: LORazepam 1 MG TABLET PO SCH ×2 (05:56→10:15)
[2022-01-21] MEDS ORDERED: methaDONE HCL 40 MG DISPERSABLE TABLET PO SCH (06:00)
[2022-01-21] MEDS: NICOTINE 10 MG CARTRIDGE (INHALER) IH PRN (10:14)
[2022-01-21] MEDS: HYDROCHLOROTHIAZIDE 25 MG TABLET (FP) PO SCH (10:15)
[2022-01-21] MEDS: PRENATAL VITAMINS W/ FOLIC ACID TABLET (FP) PO SCH (10:15)
[2022-01-21] MEDS: ASPIRIN 81 MG CHEWABLE TABLETS PO SCH (10:15)
[2022-01-21] MEDS: LISINOPRIL 20 MG TABLET PO SCH (10:15)
[2022-01-21 10:55] VITALS: BP 131/93; PULSE 86; RESP 19; TEMP 97.5
[2022-01-22] MEDS ORDERED: LORazepam 0.5 MG TABLET PO PRN
[2022-01-22] MEDS ORDERED: LORazepam 0.5 MG TABLET PO SCH (05:00)
[2022-01-23] MEDS ORDERED: LORazepam 0.5 MG TABLET PO ONE (05:00)
== END 2022-01-21 14:32 | disposition left against medical advice (07) | DRG 770 ==
LOC: YASAS 10:23 → Y6N 14:30
PROVIDERS: ADMIT Allergy & Immunology; ATTEND Surgery
PROC: HZ2ZZZZ Detoxification Services for Substance Abuse Treatment (ICD-10-PCS; principal; 2022-01-19)
DX: F10.230 Alcohol dependence with withdrawal, uncomplicated (principal); F11.20 Opioid dependence, uncomplicated; F17.210 Nicotine dependence, cigarettes, uncomplicated; F19.24 Other psychoactive substance dependence with psychoactive substance-induced mood disorder; F41.9 Anxiety disorder, unspecified; G40.909 Epilepsy, unspecified, not intractable, without status epilepticus; I10 Essential (primary) hypertension; E78.5 Hyperlipidemia, unspecified; B18.2 Chronic viral hepatitis C; Z86.2 Personal history of diseases of the blood and blood-forming organs and certain disorders involving the immune mechanism; Z86.19 Personal history of other infectious and parasitic diseases; Z91.013 Allergy to seafood
CPT/HCPCS: 36415; 80053; 82140; 85027; 86593; 86780; 87811; 93005; 93010; C9803-CS; U0003; U0005

== ENCOUNTER 2022-02-08 11:37 | Inpatient (IN) | payer OTHER ==
[2022-02-08 12:54] VITALS: BMI 27.0
[2022-02-08] MEDS ORDERED: NICOTINE POLACRILEX 2 MG GUM BUC PRN (15:07)
[2022-02-08] MEDS ORDERED: IBUPROFEN 400 MG TABLET (FP) PO PRN ×2 (15:07→17:08)
[2022-02-08] MEDS ORDERED: ACETAMINOPHEN 325 MG TABLET (FP) PO PRN ×4 (15:07→17:06)
[2022-02-08] MEDS ORDERED: LOPERAMIDE HCL 2 MG CAPSULE PO PRN (15:07)
[2022-02-08] MEDS ORDERED: ONDANSETRON *ODT* 4 MG TABLET SL PRN ×2 (15:07→17:10)
[2022-02-08] MEDS ORDERED: MAGNESIUM HYDROX 2400MG/30ML ORAL SUSPENSION 30 ML CUP PO PRN (15:07)
[2022-02-08] MEDS ORDERED: DICYCLOMINE HCL 10 MG CAPSULE PO PRN ×2 (15:07→17:07)
[2022-02-08] MEDS ORDERED: IBUPROFEN 600 MG TABLET (FP) PO PRN ×2 (15:07→17:09)
[2022-02-08] MEDS ORDERED: BENZOCAINE/MENTHOL (CHLORASEPTIC ) LOZENGE MM PRN ×2 (15:07→17:06)
[2022-02-08] MEDS ORDERED: BISMUTH SUBSALICYLATE 524 MG/30 ML PO PRN ×2 (15:07→17:06)
[2022-02-08] MEDS ORDERED: MAG HYDROX/AL HYDROX/SIMETH 30 ML UNIT-DOSE CUP PO PRN (15:07)
[2022-02-08] MEDS ORDERED: NALOXONE HCL (KLOXXADO) 8 MG SPRAY NS PRN ×2 (15:07→17:10)
[2022-02-08] MEDS ORDERED: POLYETHYLENE GLYCOL (HEALTHYLAX) 3350 17 GM PACKET PO PRN ×2 (15:07→17:09)
[2022-02-08] MEDS ORDERED: HYDROCHLOROTHIAZIDE 25 MG TABLET (FP) PO SCH (15:15)
[2022-02-08] MEDS ORDERED: LISINOPRIL 20 MG TABLET PO SCH (15:15)
[2022-02-08] MEDS ORDERED: PRENATAL VITAMINS W/ FOLIC ACID TABLET (FP) PO SCH (15:15)
[2022-02-08] MEDS: PRENATAL VITAMINS W/ FOLIC ACID TABLET (FP) PO SCH (17:25)
[2022-02-08] MEDS: HYDROCHLOROTHIAZIDE 25 MG TABLET (FP) PO SCH (17:26)
[2022-02-08] MEDS: LISINOPRIL 20 MG TABLET PO SCH (17:26)
[2022-02-08] MEDS: chlordiazePOXIDE HCL 25 MG CAPSULE PO SCH ×2 (17:26→22:08)
[2022-02-08] MEDS: NICOTINE 10 MG CARTRIDGE (INHALER) IH PRN (18:54)
[2022-02-08] MEDS: MELATONIN 5 MG TABLETS PO SCH (22:07)
[2022-02-08] MEDS: THIAMINE HCL 100 MG TABLET (FP) PO SCH (22:07)
[2022-02-08] MEDS: METHOCARBAMOL 500 MG TABLET PO PRN (22:07)
[2022-02-09] MEDS ORDERED: cloNIDine HCL 0.1 MG TABLET PO ONE (00:12)
[2022-02-09] MEDS: chlordiazePOXIDE HCL 25 MG CAPSULE PO SCH ×4 (05:30→21:59)
[2022-02-09] MEDS: HYDROCHLOROTHIAZIDE 25 MG TABLET (FP) PO SCH (10:15)
[2022-02-09] MEDS: PRENATAL VITAMINS W/ FOLIC ACID TABLET (FP) PO SCH (10:15)
[2022-02-09] MEDS: LISINOPRIL 20 MG TABLET PO SCH (10:15)
[2022-02-09 10:28] LABS: HEMATOCRIT 39.2 % (35.4-49); HEMOGLOBIN 13.2 GM/dL (11.7-16.9); MCHC 33.6 g/dl (32.0-35.9); MEAN CELL VOLUME 92.2 fl (80-96); MEAN PLT VOLUME 8.3 fl (7.5-11.1); PLATELET COUNT 195 10^3/uL (134-434); RBC 4.25 M/mm3 (4.00-5.60); RDW 17.8 % (11.9-15.9); WHITE BLOOD COUNT 4.6 K/mm3 (4.0-10.0)
[2022-02-09 10:30] LABS: ALBUMIN 3.6 g/dl (3.4-5.0); BLOOD UREA NITROGEN 11.8 mg/dL (7-18)
[2022-02-09 10:33] LABS: CREATININE 0.7 mg/dL (0.55-1.3)
[2022-02-09 10:35] LABS: BILIRUBIN,TOTAL 1.1 mg/dL (0.2-1); TOT PROT 7.8 g/dl (6.4-8.2)
[2022-02-09] MEDS: methaDONE HCL 40 MG DISPERSABLE TABLET PO SCH (10:54)
[2022-02-09] MEDS ORDERED: cloNIDine HCL 0.1 MG TABLET PO PRN (13:05)
[2022-02-09] MEDS: hydrOXYzine PAMOATE 25 MG CAPSULE (FP) PO PRN ×2 (13:25→21:55)
[2022-02-09] MEDS: MELATONIN 5 MG TABLETS PO SCH (21:54)
[2022-02-09] MEDS: THIAMINE HCL 100 MG TABLET (FP) PO SCH (21:55)
[2022-02-09] MEDS: METHOCARBAMOL 500 MG TABLET PO PRN (21:55)
[2022-02-09] MEDS: busPIRone HCL 10 MG TABLET (FP) PO SCH (22:02)
[2022-02-09] MEDS: QUEtiapine FUMARATE 25 MG TABLET PO SCH (22:02)
[2022-02-10] MEDS: chlordiazePOXIDE HCL 25 MG CAPSULE PO SCH ×4 (05:29→21:59)
[2022-02-10] MEDS: methaDONE HCL 40 MG DISPERSABLE TABLET PO SCH (05:31)
[2022-02-10] MEDS: LISINOPRIL 20 MG TABLET PO SCH (10:23)
[2022-02-10] MEDS: HYDROCHLOROTHIAZIDE 25 MG TABLET (FP) PO SCH (10:23)
[2022-02-10] MEDS: busPIRone HCL 10 MG TABLET (FP) PO SCH ×2 (10:24→22:00)
[2022-02-10] MEDS: PRENATAL VITAMINS W/ FOLIC ACID TABLET (FP) PO SCH (10:24)
[2022-02-10] MEDS: THIAMINE HCL 100 MG TABLET (FP) PO SCH (21:59)
[2022-02-10] MEDS: QUEtiapine FUMARATE 25 MG TABLET PO SCH (22:00)
[2022-02-10] MEDS: MELATONIN 5 MG TABLETS PO SCH (22:00)
[2022-02-11] MEDS: chlordiazePOXIDE HCL 10 MG CAPSULE PO SCH ×4 (05:29→22:10)
[2022-02-11] MEDS: methaDONE HCL 40 MG DISPERSABLE TABLET PO SCH (05:30)
[2022-02-11 06:16] VITALS: RESP 18
[2022-02-11] MEDS: HYDROCHLOROTHIAZIDE 25 MG TABLET (FP) PO SCH (10:18)
[2022-02-11] MEDS: busPIRone HCL 10 MG TABLET (FP) PO SCH ×2 (10:18→22:09)
[2022-02-11] MEDS: PRENATAL VITAMINS W/ FOLIC ACID TABLET (FP) PO SCH (10:18)
[2022-02-11] MEDS: hydrOXYzine PAMOATE 25 MG CAPSULE (FP) PO PRN ×2 (10:18→22:09)
[2022-02-11] MEDS: LISINOPRIL 20 MG TABLET PO SCH (10:18)
[2022-02-11] MEDS: METHOCARBAMOL 500 MG TABLET PO PRN (22:09)
[2022-02-11] MEDS: MELATONIN 5 MG TABLETS PO SCH (22:09)
[2022-02-11] MEDS: THIAMINE HCL 100 MG TABLET (FP) PO SCH (22:09)
[2022-02-11] MEDS: QUEtiapine FUMARATE 25 MG TABLET PO SCH (22:10)
[2022-02-12] MEDS ORDERED: chlordiazePOXIDE HCL 10 MG CAPSULE PO SCH (05:00)
[2022-02-12] MEDS: methaDONE HCL 40 MG DISPERSABLE TABLET PO SCH (05:28)
[2022-02-12 06:12] VITALS: BP 124/77; PULSE 70; TEMP 96.4
[2022-02-12] MEDS: NICOTINE 10 MG CARTRIDGE (INHALER) IH PRN (07:36)
[2022-02-12] MEDS: busPIRone HCL 10 MG TABLET (FP) PO SCH (10:05)
[2022-02-12] MEDS: HYDROCHLOROTHIAZIDE 25 MG TABLET (FP) PO SCH (10:05)
[2022-02-12] MEDS: LISINOPRIL 20 MG TABLET PO SCH (10:06)
[2022-02-12] MEDS: PRENATAL VITAMINS W/ FOLIC ACID TABLET (FP) PO SCH (10:06)
== END 2022-02-12 10:08 | disposition home or self-care (01) | DRG 773 ==
LOC: YASAS 11:37 → Y3N 16:07
PROVIDERS: ADMIT Allergy & Immunology; ATTEND Family Medicine Addiction Medicine
PROC: HZ2ZZZZ Detoxification Services for Substance Abuse Treatment (ICD-10-PCS; principal; 2022-02-08)
DX: F10.230 Alcohol dependence with withdrawal, uncomplicated (principal); F11.20 Opioid dependence, uncomplicated; F17.210 Nicotine dependence, cigarettes, uncomplicated; F31.81 Bipolar II disorder; F41.9 Anxiety disorder, unspecified; G40.909 Epilepsy, unspecified, not intractable, without status epilepticus; I10 Essential (primary) hypertension; E78.5 Hyperlipidemia, unspecified; B18.2 Chronic viral hepatitis C; R76.8 Other specified abnormal immunological findings in serum; Z86.19 Personal history of other infectious and parasitic diseases; Z86.69 Personal history of other diseases of the nervous system and sense organs; Z91.013 Allergy to seafood
CPT/HCPCS: 36415; 80053; 85027; 86593; 86780; 93005; 93010; C9803-CS; U0003; U0005

== ENCOUNTER 2022-02-21 09:52 | Inpatient (IN) | payer OTHER ==
[2022-02-21] MEDS ORDERED: NICOTINE 14 MG/24 HOURS TOPICAL PATCH TD SCH (10:00)
[2022-02-21 10:48] VITALS: BMI 25.1
[2022-02-21] MEDS ORDERED: LOPERAMIDE HCL 2 MG CAPSULE PO PRN ×2 (11:11→11:34)
[2022-02-21] MEDS ORDERED: NICOTINE 10 MG CARTRIDGE (INHALER) IH PRN ×2 (11:11→11:34)
[2022-02-21] MEDS ORDERED: IBUPROFEN 400 MG TABLET (FP) PO PRN ×2 (11:11→11:34)
[2022-02-21] MEDS ORDERED: hydrOXYzine PAMOATE 25 MG CAPSULE (FP) PO PRN (11:11)
[2022-02-21] MEDS ORDERED: guaiFENesin 200 MG/10 ML 10 ML UNIT-DOSE CUPS PO PRN (11:11)
[2022-02-21] MEDS ORDERED: MAG HYDROX/AL HYDROX/SIMETH 30 ML UNIT-DOSE CUP PO PRN ×2 (11:11→11:34)
[2022-02-21] MEDS ORDERED: NICOTINE POLACRILEX 2 MG GUM BC PRN (11:11)
[2022-02-21] MEDS ORDERED: BENZOCAINE/MENTHOL (CHLORASEPTIC ) LOZENGE MM PRN ×2 (11:11→11:34)
[2022-02-21] MEDS ORDERED: ACETAMINOPHEN 325 MG TABLET (FP) PO PRN ×3 (11:11→11:34)
[2022-02-21] MEDS ORDERED: MAGNESIUM HYDROX 2400MG/30ML ORAL SUSPENSION 30 ML CUP PO PRN ×2 (11:11→11:34)
[2022-02-21] MEDS ORDERED: POLYETHYLENE GLYCOL (HEALTHYLAX) 3350 17 GM PACKET PO PRN ×2 (11:11→11:34)
[2022-02-21] MEDS ORDERED: BISMUTH SUBSALICYLATE 262 MG/15 ML BTL PO PRN (11:34)
[2022-02-21] MEDS ORDERED: IBUPROFEN 600 MG TABLET (FP) PO PRN (11:34)
[2022-02-21] MEDS ORDERED: ONDANSETRON *ODT* 4 MG TABLET SL PRN (11:34)
[2022-02-21] MEDS ORDERED: NICOTINE POLACRILEX 2 MG GUM BUC PRN (11:34)
[2022-02-21] MEDS ORDERED: NALOXONE HCL (KLOXXADO) 8 MG SPRAY NS PRN (11:34)
[2022-02-21] MEDS ORDERED: DICYCLOMINE HCL 10 MG CAPSULE PO PRN (11:34)
[2022-02-21] MEDS ORDERED: METHOCARBAMOL 500 MG TABLET PO PRN (11:34)
[2022-02-21] MEDS ORDERED: chlordiazePOXIDE HCL 25 MG CAPSULE PO PRN (17:14)
[2022-02-21] MEDS: chlordiazePOXIDE HCL 25 MG CAPSULE PO SCH ×2 (17:28→22:05)
[2022-02-21] MEDS: hydrOXYzine PAMOATE 25 MG CAPSULE (FP) PO PRN (19:57)
[2022-02-21] MEDS ORDERED: LISINOPRIL 20 MG TABLET PO ONE (21:55)
[2022-02-21] MEDS ORDERED: THIAMINE HCL 100 MG TABLET (FP) PO SCH (22:00)
[2022-02-21] MEDS ORDERED: MELATONIN 5 MG TABLETS PO SCH (22:00)
[2022-02-21] MEDS: MELATONIN 5 MG TABLETS PO SCH (22:06)
[2022-02-21] MEDS: THIAMINE HCL 100 MG TABLET (FP) PO SCH (22:07)
[2022-02-21] MEDS: ASPIRIN 81 MG CHEWABLE TABLETS PO SCH (22:07)
[2022-02-22] MEDS: chlordiazePOXIDE HCL 25 MG CAPSULE PO SCH ×4 (05:12→22:11)
[2022-02-22] MEDS: HYDROCHLOROTHIAZIDE 25 MG TABLET (FP) PO SCH (09:05)
[2022-02-22] MEDS: PRENATAL VITAMINS W/ FOLIC ACID TABLET (FP) PO SCH (09:06)
[2022-02-22] MEDS: ASPIRIN 81 MG CHEWABLE TABLETS PO SCH (09:06)
[2022-02-22] MEDS: methaDONE HCL 40 MG DISPERSABLE TABLET PO SCH (09:48)
[2022-02-22] MEDS: NICOTINE 7 MG/24 HOURS TOPICAL PATCH TD SCH (09:51)
[2022-02-22] MEDS ORDERED: PRENATAL VITAMINS W/ FOLIC ACID TABLET (FP) PO SCH (10:00)
[2022-02-22 11:44] LABS: HEMATOCRIT 38.3 % (35.4-49); HEMOGLOBIN 12.9 GM/dL (11.7-16.9); MCH 31.1 pg (25.7-33.7); MCHC 33.7 g/dl (32.0-35.9); MEAN CELL VOLUME 92.3 fl (80-96); MEAN PLT VOLUME 8.3 fl (7.5-11.1); PLATELET COUNT 197 10^3/uL (134-434); RBC 4.15 M/mm3 (4.00-5.60); RDW 18.2 % (11.9-15.9); WHITE BLOOD COUNT 5.8 K/mm3 (4.0-10.0)
[2022-02-22 11:46] LABS: ALBUMIN 3.2 g/dl (3.4-5.0); CALCIUM 8.6 mg/dL (8.5-10.1); CREATININE 0.7 mg/dL (0.55-1.3)
[2022-02-22 11:48] LABS: BILIRUBIN,TOTAL 0.5 mg/dL (0.2-1); TOT PROT 7.3 g/dl (6.4-8.2)
[2022-02-22] MEDS: MELATONIN 5 MG TABLETS PO SCH (22:11)
[2022-02-22] MEDS: THIAMINE HCL 100 MG TABLET (FP) PO SCH (22:11)
[2022-02-22] MEDS: QUEtiapine FUMARATE 25 MG TABLET PO SCH (22:11)
[2022-02-23] MEDS: chlordiazePOXIDE HCL 25 MG CAPSULE PO SCH ×4 (05:00→22:08)
[2022-02-23] MEDS: methaDONE HCL 40 MG DISPERSABLE TABLET PO SCH (05:04)
[2022-02-23] MEDS: hydrOXYzine PAMOATE 25 MG CAPSULE (FP) PO PRN ×2 (10:14→18:16)
[2022-02-23] MEDS: PRENATAL VITAMINS W/ FOLIC ACID TABLET (FP) PO SCH (10:14)
[2022-02-23] MEDS: HYDROCHLOROTHIAZIDE 25 MG TABLET (FP) PO SCH (10:14)
[2022-02-23] MEDS: ASPIRIN 81 MG CHEWABLE TABLETS PO SCH (10:14)
[2022-02-23] MEDS: NICOTINE 7 MG/24 HOURS TOPICAL PATCH TD SCH (10:17)
[2022-02-23] MEDS: THIAMINE HCL 100 MG TABLET (FP) PO SCH (22:08)
[2022-02-23] MEDS: QUEtiapine FUMARATE 25 MG TABLET PO SCH (22:09)
[2022-02-23] MEDS: MELATONIN 5 MG TABLETS PO SCH (22:11)
[2022-02-24] MEDS ORDERED: chlordiazePOXIDE HCL 10 MG CAPSULE PO PRN
[2022-02-24] MEDS: methaDONE HCL 40 MG DISPERSABLE TABLET PO SCH (05:09)
[2022-02-24] MEDS: chlordiazePOXIDE HCL 10 MG CAPSULE PO SCH ×4 (05:18→22:13)
[2022-02-24] MEDS: HYDROCHLOROTHIAZIDE 25 MG TABLET (FP) PO SCH (10:05)
[2022-02-24] MEDS: ASPIRIN 81 MG CHEWABLE TABLETS PO SCH (10:05)
[2022-02-24] MEDS: PRENATAL VITAMINS W/ FOLIC ACID TABLET (FP) PO SCH (10:05)
[2022-02-24] MEDS: NICOTINE 7 MG/24 HOURS TOPICAL PATCH TD SCH (10:06)
[2022-02-24] MEDS: hydrOXYzine PAMOATE 25 MG CAPSULE (FP) PO PRN (13:12)
[2022-02-24] MEDS: QUEtiapine FUMARATE 25 MG TABLET PO SCH (22:11)
[2022-02-24] MEDS: MELATONIN 5 MG TABLETS PO SCH (22:12)
[2022-02-24] MEDS: THIAMINE HCL 100 MG TABLET (FP) PO SCH (22:12)
[2022-02-25] MEDS: methaDONE HCL 40 MG DISPERSABLE TABLET PO SCH (05:13)
[2022-02-25] MEDS: chlordiazePOXIDE HCL 10 MG CAPSULE PO SCH ×2 (05:13→17:20)
[2022-02-25] MEDS: ASPIRIN 81 MG CHEWABLE TABLETS PO SCH (10:09)
[2022-02-25] MEDS: NICOTINE 7 MG/24 HOURS TOPICAL PATCH TD SCH (10:10)
[2022-02-25] MEDS: PRENATAL VITAMINS W/ FOLIC ACID TABLET (FP) PO SCH (10:10)
[2022-02-25] MEDS: HYDROCHLOROTHIAZIDE 25 MG TABLET (FP) PO SCH (10:10)
[2022-02-25] MEDS: hydrOXYzine PAMOATE 25 MG CAPSULE (FP) PO PRN (12:36)
[2022-02-25] MEDS: MELATONIN 5 MG TABLETS PO SCH (22:06)
[2022-02-25] MEDS: QUEtiapine FUMARATE 25 MG TABLET PO SCH (22:06)
[2022-02-25] MEDS: THIAMINE HCL 100 MG TABLET (FP) PO SCH (22:06)
[2022-02-26] MEDS ORDERED: chlordiazePOXIDE HCL 10 MG CAPSULE PO ONE (05:00)
[2022-02-26] MEDS: methaDONE HCL 40 MG DISPERSABLE TABLET PO SCH (05:11)
[2022-02-26 06:11] VITALS: BP 138/88; PULSE 76; RESP 18; TEMP 97.8
== END 2022-02-26 07:29 | disposition home or self-care (01) | DRG 773 ==
LOC: YASAS 09:52 → Y6N 11:46
PROVIDERS: ADMIT Allergy & Immunology; ATTEND Surgery
PROC: HZ2ZZZZ Detoxification Services for Substance Abuse Treatment (ICD-10-PCS; principal; 2022-02-21)
DX: F10.230 Alcohol dependence with withdrawal, uncomplicated (principal); F10.220 Alcohol dependence with intoxication, uncomplicated; F10.24 Alcohol dependence with alcohol-induced mood disorder; F10.282 Alcohol dependence with alcohol-induced sleep disorder; F11.20 Opioid dependence, uncomplicated; F17.210 Nicotine dependence, cigarettes, uncomplicated; F33.1 Major depressive disorder, recurrent, moderate; I10 Essential (primary) hypertension; E78.5 Hyperlipidemia, unspecified; R60.0 Localized edema; Z91.013 Allergy to seafood; Z86.11 Personal history of tuberculosis; Z86.19 Personal history of other infectious and parasitic diseases; Z86.69 Personal history of other diseases of the nervous system and sense organs; Z56.0 Unemployment, unspecified
CPT/HCPCS: 36415; 80053; 85027; 86593; 86780; C9803-CS; U0003; U0005